=== PATIENT | male | born 1960 | race Hispanic/Latino ===

== ENCOUNTER 2017-05-05 17:18 | Inpatient (IN) | payer OTHER ==
[2017-05-05 17:18] VITALS: BMI 30.4
--- NOTE | 2017-05-05 17:52 | C.PDOC ---
History Of Present Illness <Elizabeth León - Last Filed: 05/05/17 19:01> <Naya Tapia - Last Filed: 05/05/17 19:29> 56 y/o male with Hx of HIV,CHF, DM and AICD presents to ED with complaints of RICO/SOB and general weakness with exertion since this morning. As per patient has been "recently sleeping more than usual" and was trying to assist patient up from couch when patient became Diaphoretic and appeared weak. Status Post STEMI 12/2016 and VL Undetect, CD4>600 which was last checked 7 months ago. Patient is currently asymptomatic and denies CP, FEVER or URI symptoms. Pt is a smoker and unknown if he has Chronic Hypoxia. No other complaints at this time. RICO/SOB SINCE THIS MORNING. +GEN WEAKNESS W EXERTION. CURRENTLY ASYMPT @ REST. NO CP., FEVER. URI SX. PMH sig for CHF, HIV, DM, AICD placement SP STEMI 12/2016. STATES PT HAS BEEN SLEEPING MORE THAN USUAL RECENTLY. WAS TRYING TO ASSIST PT UP FROM COUCH, PT WAS DIAPHORETIC AND APPEARED VERY WEAK. NO CP @ THAT TIME. NOW IMPROVED. +SMOKER. UNK IF CHRONIC HYPOXIA PS VL UNDETECT, CD4>600 LAST CHECKED SEV MONTHS AGO EXAM NAD NONTOXIC LUNGS B/L BASILAR RALES NO RETRACTION SPEAKING FULL SENTENCES ABD NEG EXT NO EDEMA (Elizabeth León) History Per: Patient, Family () History/Exam Limitations: no limitations Onset/Duration Of Symptoms: Hrs Current Symptoms Are (Timing): Still Present <Elizabeth León - Last Filed: 05/05/17 19:01> <Miranda Tapiashannan - Last Filed: 05/05/17 19:29> Chief Complaint (Nursing): Shortness Of Breath Past Medical History Reviewed: Historical Data, Nursing Documentation, Vital Signs - Medical History PMH: HIV, HTN Family History: States: Unknown Family Hx - Social History Hx Alcohol Use: No Hx Substance Use: No <Elizabeth León - Last Filed: 05/05/17 19:01> Review Of Systems Except As Marked, All Systems Reviewed And Found Negative. Constitutional: Negative for: Fever, Chills Cardiovascular: Negative for: Chest Pain Respiratory: Positive for: SOB with Excertion Gastrointestinal: Negative for: Nausea, Vomiting, Diarrhea Genitourinary: Negative for: Dysuria Neurological: Positive for: Weakness. Negative for: Headache <Elizabeth León Last Filed: 05/05/17 19:01> Physical Exam - Physical Exam Appears: Non-toxic, No Acute Distress Skin: Normal Color, Warm Head: Atraumatic, Normacephalic Oral Mucosa: Moist Neck: Normal ROM Cardiovascular: Rhythm Regular, No Murmur Respiratory: Rales (Bilateral Rales, No retractions), No Wheezing Gastrointestinal/Abdominal: Soft, No Tenderness, No Guarding, No Rebound Extremity: Normal ROM, No Pedal Edema, Capillary Refill (<2 seconds) Neurological/Psych: Oriented x3, Normal Speech, Normal Cognition <Elizabeth León Last Filed: 05/05/17 19:01> ED Course And Treatment - Laboratory Results Result Diagrams: 05/05/17 18:35 05/05/17 18:35 O2 Sat by Pulse Oximetry: 99 (RA) Pulse Ox Interpretation: Normal - Radiology CXR: Interpreted by Nc CXR Interpretation: Yes: No Acute Disease <Elizabeth León Last Filed: 05/05/17 19:01> - Laboratory Results Result Diagrams: 05/05/17 18:35 05/05/17 18:35 <Naya Tapia - Last Filed: 05/05/17 19:29> Progress - Data Reviewed Data Reviewed: Lab, Diagnostic imaging, EKG, Old records <Elizabeth León Last Filed: 05/05/17 19:01> Disposition <Elizabeth León Filed: 05/05/17 19:01> Discussed With : Ashley Dejesus Comment: accepted the pt on his service and took over the care at 7:27 PM Doctor Will See Patient In The: Hospital Counseled Patient/Family Regarding: Studies Performed, Diagnosis - Disposition Disposition Time: 19:00 - POA Present On Arrival: Poor Glycemic Control <Miranda Tapiadi - Last Filed: 05/05/17 19:29> - Disposition Disposition: HOSPITALIZED Condition: CRITICAL - Clinical Impression Clinical Impression: Dyspnea, CHF (congestive heart failure), Renal failure, acute - PA / SIZING END BANDER / Resident Statement / has reviewed & agrees with the documentation as recorded. / has examined the patient and agrees with the treatment plan. - Scribe Statement The provider has reviewed the documentation as recorded by the Scribe <Elizabeth León - Last Filed: 05/05/17 19:01> <Naya Tapia - Last Filed: 05/05/17 19:29> - Scribe Statement Rob Parr All medical record entries made by the Scribe were at my direction and personally dictated by me. I have reviewed the chart and agree that the record accurately reflects my personal performance of the history, physical exam, medical decision making, and the department course for this patient. I have also personally directed, reviewed, and agree with the discharge instructions and disposition. (Elizabeth León) Physician Patient Turnover Patient Signed Over To: Naya Tapia Handoff Comments: FU LABS, DISPO <Elizabeth León - Last Filed: 05/05/17 19:01> Decision To Admit <MauElizabeth - Last Filed: 05/05/17 19:01> - Pt Status Changed To: Hospital Disposition Of: Inpatient - Admit Certification Admit to Inpatient:: After my assessment, the patient will require hospitalization for at least two midnights. This is because of the severity of symptoms shown, intensity of services needed, and/or the medical risk in this patient being treated as an outpatient. - InPatient: Physician Admission Certification: I certify that this patient requires 2 or more midnights of care for the following reason:: After my assessment, the patient will require hospitalization for at least two midnights. This is because of the severity of symptoms shown, intensity of services needed, and/or the medical risk in this patient being treated as an outpatient. - . Bed Request Type: Telemetry Admitting Physician: Ashley Dejesus <Naya Tapia - Last Filed: 05/05/17 19:29> - . Patient Diagnosis: Dyspnea, CHF (congestive heart failure), Renal failure, acute
[2017-05-05] MEDS ORDERED: Sodium Chloride 0.9% 1,000 ML IV SCH (18:30)
[2017-05-05 18:32] LABS: ABG ALLEN TEST POS; DRAW SITE RBA
[2017-05-05 18:41] LABS: BASO % 0.3 % (0.0-2.0); EOS % 0.6 % (0.0-4.0); HEMATOCRIT 34.7 % (35.0-51.0); LYMPH # 0.9 K/uL (1.0-4.3); LYMPH % 11.9 % (20.0-40.0); MEAN CELL VOLUME 101.4 fL (80.0-94.0); MEAN CORPUSCULAR HEMOGLOBIN 33.8 pg (27.0-31.0); MEAN CORPUSCULAR HGB CONC 33.4 g/dL (33.0-37.0); MONO # 0.4 K/uL (0.0-0.8); MONO % 5.6 % (0.0-10.0); RED CELL DISTRIBUTION WIDTH 14.2 % (11.5-14.5); WHITE BLOOD COUNT 7.9 K/uL (4.8-10.8)
[2017-05-05 18:49] LABS: INR 0.9
[2017-05-05 18:52] LABS: POTASSIUM 4.7 mmol/L (3.6-5.2)
[2017-05-05 18:54] LABS: ALB/GLOB RATIO 1.1 (1.0-2.1); TOTAL PROTEIN 7.9 g/dL (6.3-8.3)
[2017-05-05 18:55] LABS: CALCIUM 8.5 mg/dl (8.6-10.4)
[2017-05-05 19:07] LABS: TROPONIN I 0.041 ng/mL (0.00-0.120)
[2017-05-05] MEDS ORDERED: Sodium Chloride 0.9% 1,000 ML IV STA (19:21)
[2017-05-05] MEDS ORDERED: Sodium Chloride 0.45% 1,000 ML IV ONE (19:58)
[2017-05-05] MEDS: Sodium Chloride 0.45% 1,000 ML IV SCH (20:00)
[2017-05-05] MEDS ORDERED: Dextrose 50% SYRINGE Inj (50 ml) IV STA (20:02)
[2017-05-05] MEDS ORDERED: Dextrose 50% SYRINGE Inj (50 ml) ONE (20:04)
[2017-05-05] MEDS: Dextrose 5%/0.45% NS 1,000 ML IV SCH (20:31)
[2017-05-05] MEDS: (Novolog) Insulin Aspart, Recombinant 100 u/ml 10 ml vial SC SCH (21:29)
[2017-05-05] MEDS ORDERED: INSULIN GLARGINE HUM REC ANLOG 10 UNIT SQ SCH (22:00)
--- NOTE | 2017-05-05 23:16 | CP.PCM.CON ---
History of Present Illness - History of Present Illness History of Present Illness: Surgery: Dr. Gallegos CC: SKYLAR HPI: 56M w. pmh of CHF, HTN, and HIV presents with new onset weakness/fatigue, SOB/dyspnea on exertion and diaphoresis beginning this morning. However over the past few days pt states that he has been having urinary issues. Decreased frequency and volume of urine. No change in color or odor. He denies F/C no MILLS. He did have CP this AM, no palpitations, no N/V/D. Lab work showed SKYLAR for which surgery has been consulted. PMH: CHF, HTN, HIV PSH: AICD Meds: MAR reviewed NKDA Social: + Tobacco, no ETOH/Drugs Fhx: non-contributory Review of Systems - Review of Systems All systems: reviewed and no additional remarkable complaints except (HPI) Past Patient History - Infectious Disease Hx of Infectious Diseases: None - Past Medical History & Family History Past Medical History?: Yes - Past Social History Smoking Status: Heavy Smoker > 10 Cigarettes Daily - CARDIAC Hx Hypertension: Yes - ENDOCRINE/METABOLIC Hx Diabetes Mellitus Type 2: Yes - HEMATOLOGICAL/ONCOLOGICAL Hx Human Immunodeficiency Virus (HIV): Yes - MUSCULOSKELETAL/RHEUMATOLOGICAL Hx Falls: Yes (multiple stage healing laceration) - PSYCHIATRIC Hx Substance Use: No - SURGICAL HISTORY Hx Surgeries: Yes Other/Comment: AICD placement. - ANESTHESIA Hx Anesthesia: Yes Hx Anesthesia Reactions: No Hx Malignant Hyperthermia: No Has any member of the family had a problem w/ anesthesia?: No Meds Allergies/Adverse Reactions: Allergies Allergy/AdvReac Type Severity Reaction Status Date / Time No Known Allergies Allergy Verified 05/05/17 17:26 - Medications Medications: Current Medications Docusate Sodium (Colace) 100 mg PO DAILY [facility] Home Med (Insulin Glargine,Hum.Rec.Anlog [Lantus Solostar]) 10 unit SQ [facility] Last Admin: 05/05/17 22:33 Dose: Not Given Sodium Chloride (Sodium Chloride 0.9%) 1,000 mls @ 100 mls/hr IV .Q10H STA Stop: 05/06/17 04:29 Last Admin: 05/05/17 19:23 Dose: 100 mls/hr Sodium Chloride (Sodium Chloride 0.45%) 1,000 mls @ 80 mls/hr IV .[id number] [facility] Last Admin: 05/05/17 20:00 Dose: 80 mls/hr Dextrose/Sodium Chloride (Dextrose 5%/0.45% Ns 1000 Ml) 1,000 mls @ 80 mls/hr IV .[id number] [facility] Last Admin: 05/05/17 20:31 Dose: 80 mls/hr Insulin Aspart (Novolog) 0 unit SC ACHS [facility] PRN Reason: Protocol Last Admin: 05/05/17 21:29 Dose: Not Given Physical Exam - Constitutional Appears: Non-toxic, No Acute Distress - Head Exam Head Exam: ATRAUMATIC, NORMOCEPHALIC - Eye Exam Eye Exam: EOMI - ENT Exam ENT Exam: Mucous Membranes Moist - Neck Exam Neck exam: Positive for: Full Rom - Respiratory Exam Respiratory Exam: NORMAL BREATHING PATTERN. absent: Accessory Muscle Use, Respiratory Distress - GI/Abdominal Exam GI & Abdominal Exam: Soft. absent: Tenderness - Neurological Exam Neurological exam: Alert, Oriented x3 Results - Vital Signs Recent Vital Signs: Last Vital Signs Temp 97.4 F L 05/05/17 21:30 Pulse 78 05/05/17 21:30 Resp 18 05/05/17 21:30 BP 110/75 05/05/17 21:30 Pulse Ox 97 05/05/17 21:30 - Labs Result Diagrams: 05/05/17 18:35 05/05/17 18:35 Labs: Laboratory Results - last 24 hr 05/05/17 05/05/17 05/05/17 20:01 20:34 22:26 POC Glucose (mg/dL) 39 L 179 H 136 H Assessment & Plan - Assessment and Plan (Free Text) Assessment: 56M w. SKYLAR -for sean catheter placement tomorrow -Consent in chart -NPO -c/w current medical management -d/w attending Oziel PGY2
[2017-05-06] MEDS: Dextrose 5%/0.45% NS 1,000 ML IV SCH ×3 (07:51→22:10)
[2017-05-06] MEDS: (Novolog) Insulin Aspart, Recombinant 100 u/ml 10 ml vial SC SCH ×4 (08:13→22:46)
[2017-05-06] MEDS: Sodium Chloride 0.45% 1,000 ML IV SCH ×2 (08:15→22:46)
--- NOTE | 2017-05-06 09:33 | CP.PCM.PN ---
Subjective - Date & Time of Evaluation Date of Evaluation: 05/06/17 Time of Evaluation: 09:30 - Subjective Subjective: Medicine Progress Note- Dr Dejesus's service Patient seen and examined. Patient is NPO for sean catheter placement today scheduled for 1100. Patient states that he is still having difficulty urinating due to decreased urine production. Denies fever, chest pain, shortness of breath, and abdominal pain. Patient's questions about procedure were answered. Objective - Vital Signs/Intake and Output Vital Signs (last 24 hours): Temp Pulse Resp BP Pulse Ox 97.4 F L 66 20 114/76 100 05/05/17 23:05 05/06/17 00:00 05/05/17 23:05 05/05/17 23:05 05/05/17 23:05 - Medications Medications: Current Medications Docusate Sodium (Colace) 100 mg PO DAILY [facility] Heparin Sodium (Porcine) (Heparin) 5,000 units SC Q12 [facility] Sodium Chloride (Sodium Chloride 0.45%) 1,000 mls @ 80 mls/hr IV .[id number] [facility] Last Admin: 05/05/17 20:00 Dose: 80 mls/hr Dextrose/Sodium Chloride (Dextrose 5%/0.45% Ns 1000 Ml) 1,000 mls @ 80 mls/hr IV .[id number] [facility] Last Admin: 05/06/17 07:51 Dose: 80 mls/hr Insulin Aspart (Novolog) 0 unit SC [facility] PRN Reason: Protocol Last Admin: 05/06/17 08:13 Dose: Not Given Insulin Glargine (Lantus) 10 unit SC [facility] - Labs Labs: PT 10.5 SECONDS (9.7-12.2) 05/05/17 18:35 INR 0.9 05/05/17 18:35 APTT 30 SECONDS (21-34) 05/05/17 18:35 - Constitutional Appears: Non-toxic, No Acute Distress - Head Exam Head Exam: ATRAUMATIC, NORMOCEPHALIC - Eye Exam Eye Exam: EOMI, Normal appearance - ENT Exam ENT Exam: Mucous Membranes Moist - Respiratory Exam Respiratory Exam: Clear to Ausculation Bilateral, NORMAL BREATHING PATTERN. absent: Rhonchi, Wheezes, Respiratory Distress - Cardiovascular Exam Cardiovascular Exam: REGULAR RHYTHM, +S1, +S2 - GI/Abdominal Exam GI & Abdominal Exam: Soft, Normal Bowel Sounds. absent: Firm, Guarding, Rigid, Tenderness - Extremities Exam Extremities Exam: Full ROM, Normal Inspection. absent: Pedal Edema - Neurological Exam Neurological Exam: Alert, Awake, CN II-XII Intact, Normal Gait, Oriented x3 - Psychiatric Exam Psychiatric exam: Normal Affect, Normal Mood - Skin Skin Exam: Dry, Intact, Normal Color, Warm Assessment and Plan - Assessment and Plan (Free Text) Assessment: (1) ESRD GFR 6 NPO for sean catheter placement today with Dr Gallegos Surgery consulted Dr Gallegos [employer] Pusher Dr Siddiqui consulted (2) CHF with AICD BNP 2220 f/u CXR report (3) HTN well controlled without medications (4) HIV Currently not on any medications ID Dr Maldonado consulted- help appreciated (5) DM ISS Lantus 10u SC HS Accuchecks (6) Prophylactic measures Heparin on hold for surgery Pepcid SCDs Discussed with Dr Dejesus
--- NOTE | 2017-05-06 10:18 | RAD ---
PROCEDURE: CHEST RADIOGRAPH, 1 VIEW HISTORY: Shortness of breath COMPARISON: 01/01/2017 FINDINGS: LUNGS: The lungs are clear. PLEURA: No pneumothorax or pleural fluid seen. CARDIOVASCULAR: There is stable mild cardiomegaly. There is stable position of a right-sided unipolar transvenous permanent pacing device. OSSEOUS STRUCTURES: No significant abnormalities. VISUALIZED UPPER ABDOMEN: Normal. OTHER FINDINGS: None. IMPRESSION: No acute findings.
[2017-05-06] MEDS ORDERED: ceFAZolin 1 gm FROZEN Premix 1 GM/50 ML ML IVPB ONE (11:29)
[2017-05-06] MEDS ORDERED: HEPARIN-NS 5,000 UNITS/500 ML 5,000 UNIT/500 ML BAG IV ONE (11:29)
[2017-05-06] MEDS ORDERED: Iohexol 240 (50 ml) ONE (11:31)
[2017-05-06] MEDS ORDERED: Lidocaine 2% Inj (20ml) ONE (11:48)
[2017-05-06] MEDS ORDERED: Sodium Chloride 0.9% 500 ML IV ONE (12:00)
[2017-05-06] MEDS ORDERED: Etomidate 20 mg/10ml Inj IV ONE (12:00)
[2017-05-06] MEDS ORDERED: Midazolam 2 MG/2 ML VIAL ONE (12:01)
--- NOTE | 2017-05-06 12:48 | PCM.SURG1 ---
Surgeon's Initial Post Op Note - Surgeon's Notes Surgeon: neva Canopy Inspector: 0 Type of Anesthesia: IV Sedation Anesthesia Administered By: rosa Pre-Operative Diagnosis: renal failure Operative Findings: cath to [facility] [place] Post-Operative Diagnosis: same Operation Performed: permacath with us guidance Specimen/Specimens Removed: 0 Estimated Blood Loss: EBL {In ML}: 25 Blood Products Given: N/A Drains Used: No Drains Post-Op Condition: Good Date of Surgery/Procedure: 05/06/17 Time of Surgery/Procedure: 12:47
--- NOTE | 2017-05-06 13:36 | OP ---
PROCEDURE DATE: 05/06/2017 PREOPERATIVE DIAGNOSIS: Renal failure. POSTOPERATIVE DIAGNOSIS: Renal failure. PROCEDURE CARRIED OUT: PermCath, right jugular vein, with C-arm fluoroscopy and ultrasound-guided pu ncture. SURGEON: Bernabe Gallegos MD. LOGISTICAL ENGINEER: None. ANESTHESIOLOGIST: Ms. Elizabeth Breaux CRNA. A middle-aged man, HIV positive, a variety of other medical problems who I was asked to see for evalu ation and placement of a PermCath. OPERATIVE FINDINGS: The catheter was inserted uneventfully via the right jugular vein. This is the same side he has a pacemaker defibrillator on. ____ via the subclavian. We went in via the jugular vein. PROCEDURE: The patient was given local anesthesia. Using ultrasound guidance and micropuncture tech nique, the right jugular vein was punctured. Under fluoroscopic control, the guidewire was advanced centrally. A small sheath dilator was passed over this and subsequently exchanged for a larger wire and a stiffer sheath and the catheter was eventually placed with its tip in the superior vena cava/ri ght atrial junction. It was flushed with heparinized saline with excellent pull in both directions a nd the procedure terminated, secured to the skin with silk sutures. OPERATION CARRIED OUT: PermCath, right jugular vein, with C-arm fluoroscopy and ultrasound-guided pu ncture. Ultrasound imaging of the neck showed vein was 16 mm in diameter with normal compressibility and no e vidence of intraluminal thrombosis. Bernabe Gallegos Jr., MD cc: 56 TT: 05/06/2017 13:35:46 tn
--- NOTE | 2017-05-06 13:54 | RAD ---
HISTORY: PermCath insertion. COMPARISON: Comparison made with prior study 05/05/2027 FINDINGS: LUNGS: Interval placement right IJ PermCath with tip in the SVC. . Suspect minor bibasilar atelectasis left greater than PLEURA: No evidence of pneumothorax. CARDIOVASCULAR: Heart appears mildly enlarged. No change single lead pacemaker/ defibrillator. OSSEOUS STRUCTURES: No significant abnormalities. VISUALIZED UPPER ABDOMEN: Normal. OTHER FINDINGS: None. IMPRESSION: Status post insertion right IJ PermCath as described. No evidence of pneumothorax. Suspect minor bibasilar atelectasis. No other changes.
--- NOTE | 2017-05-06 15:53 | CP.PCM.CON ---
Past Patient History - Infectious Disease Hx of Infectious Diseases: None - Past Medical History & Family History Past Medical History?: Yes - Past Social History Smoking Status: Heavy Smoker > 10 Cigarettes Daily - CARDIAC Hx Hypertension: Yes - ENDOCRINE/METABOLIC Hx Diabetes Mellitus Type 2: Yes - HEMATOLOGICAL/ONCOLOGICAL Hx Human Immunodeficiency Virus (HIV): Yes - MUSCULOSKELETAL/RHEUMATOLOGICAL Hx Falls: Yes (multiple stage healing laceration) - PSYCHIATRIC Hx Substance Use: No - SURGICAL HISTORY Hx Surgeries: Yes Other/Comment: AICD placement. - ANESTHESIA Hx Anesthesia: Yes Hx Anesthesia Reactions: No Hx Malignant Hyperthermia: No Has any member of the family had a problem w/ anesthesia?: No Meds Allergies/Adverse Reactions: Allergies Allergy/AdvReac Type Severity Reaction Status Date / Time No Known Allergies Allergy Verified 05/05/17 17:26 - Medications Medications: Current Medications Docusate Sodium (Colace) 100 mg PO DAILY [facility] Last Admin: 05/06/17 11:00 Dose: Not Given Famotidine (Pepcid) 20 mg PO BID [facility] Last Admin: 05/06/17 11:00 Dose: Not Given Heparin Sodium (Porcine) (Heparin) 5,000 units SC Q12 [facility] Sodium Chloride (Sodium Chloride 0.45%) 1,000 mls @ 80 mls/hr IV .[id number] [facility] Last Admin: 05/05/17 20:00 Dose: 80 mls/hr Dextrose/Sodium Chloride (Dextrose 5%/0.45% Ns 1000 Ml) 1,000 mls @ 80 mls/hr IV .[id number] [facility] Last Admin: 05/06/17 09:00 Dose: Not Given Insulin Aspart (Novolog) [address] [facility] PRN Reason: Protocol Last Admin: 05/06/17 11:30 Dose: Not Given Insulin Glargine (Lantus) 10 unit SC [facility] Results - Vital Signs Recent Vital Signs: Last Vital Signs Temp 97.1 F L 05/06/17 14:00 Pulse 62 05/06/17 14:00 Resp 8 L 05/06/17 14:00 BP 100/65 05/06/17 14:00 Pulse Ox 93 L 05/06/17 14:00 - Labs Result Diagrams: 05/05/17 18:35 05/05/17 18:35 Labs: Laboratory Results - last 24 hr 05/05/17 05/05/17 05/05/17 20:01 20:34 22:26 POC Glucose (mg/dL) 39 L 179 H 136 H 05/06/17 05/06/17 06:39 11:16 POC Glucose (mg/dL) 75 89
--- NOTE | 2017-05-06 15:54 | CP.PCM.CON ---
History of Present Illness - History of Present Illness History of Present Illness: 56M w. pmh of CHF, HTN, and HIV presents with new onset weakness/fatigue, SOB/ dyspnea on exertion and diaphoresis beginning this morning. However over the past few days pt states that he has been having urinary issues. Decreased frequency and volume of urine. No change in color or odor. He denies F/C no MILLS. He did have CP this AM, no palpitations, no N/V/D. Lab work showed SKYLAR for which surgery has been consulted. PMH: CHF, HTN, HIV PSH: AICD Meds: MAR reviewed NKDA Social: + Tobacco, no ETOH/Drugs Fhx: non-contributory Review of Systems - Constitutional Constitutional: As Per HPI, Anorexia, Malaise - EENT Eyes: absent: As Per HPI, Blind Spots, Blurred Vision, Change in Vision, Decreased Night Vision, Diplopia, Discharge, Dry Eye, Exophthalmos, Floaters, Irritation, Itchy Eyes, Loss of Peripheral Vision, Pain, Photophobia, Requires Corrective Lenses, Sees Flashes, Spots in Vision, Tunnel Vision, Other Visual Disturbances, Loss of Vision, Other Ears: absent: As Per HPI, Decreased Hearing, Ear Discharge, Ear Pain, Tinnitus, Abnormal Hearing, Disequilibrium, Dizziness, Other Nose/Mouth/Throat: absent: As Per HPI, Epistaxis, Nasal Congestion, Nasal Discharge, Nasal Obstruction, Nasal Trauma, Nose Pain, Post Nasal Drip, Sinus Pain, Sinus Pressure, Bleeding Gums, Change in Voice, Dental Pain, Dry Mouth, Dysphagia, Halitosis, Hoarsness, Lip Swelling, Mouth Lesions, Mouth Pain, Odynophagia, Sore Throat, Throat Swelling, Tongue Swelling, Facial Pain, Neck Pain, Neck Mass, Other - Cardiovascular Cardiovascular: absent: As Per HPI, Acrocyanosis, Chest Pain, Chest Pain at Rest , Chest Pain with Activity, Claudication, Diaphoresis, Dyspnea, Dyspnea on Exertion, Edema, Irregular Heart Rhythm, Pain Radiating to Arm/Neck/Jaw, Leg Edema, Leg Ulcers, Lightheadedness, Orthopnea, Palpitations, Paroxysmal Nocturnal Dyspnea, Pedal Edema, Radiating Pain, Rapid Heart Rate, Slow Heart Rate, Syncope, Other - Respiratory Respiratory: absent: As Per HPI, Cough, Dyspnea, Hemoptysis, Dyspnea on Exertion , Wheezing, Snoring, Stridor, Pain on Inspiration, Chest Congestion, Excessive Mucous Production, Change in Mucous Color, Pain with Coughing, Other - Gastrointestinal Gastrointestinal: absent: As Per HPI, Abdominal Pain, Belching, Bloating, Change in Bowel Habits, Change in Stool Character, Coffee Ground Emesis, Constipation, Cramping, Diarrhea, Dyspepsia, Dysphagia, Early Satiety, Excessive Flatus, Fecal Incontinence, Heartburn, Hematemesis, Hematochezia, Loose Stools, Melena, Nausea, Odynophagia, Temesmus, Vomiting, Other - Genitourinary Genitourinary: absent: As Per HPI, Change in Urinary Stream, Difficulty Urinating, Dysuria, Flank Pain, Hematuria, Pyuria, Nocturia, Urinary Incontinence, Urinary Frequency, Urinary Hesitance, Urinary Urgency, Voiding Freq/Small Amts, Freq UTI, Hx Renal/Bladder Calculi, Hx /Renal Surgery, Bladder Distension, Other - Musculoskeletal Musculoskeletal: absent: As Per HPI, Abnormal Gait, Arthralgias, Atrophy, Back Pain, Deformity, Joint Swelling, Limited Range of Motion, Loss of Height, Muscle Cramps, Muscle Weakness, Myalgias, Neck Pain, Numbness, Radiating Pain into Limb, Stiffness, Tingling, Other - Integumentary Integumentary: absent: As Per HPI, Acne, Alopecia, Bleeding Lesions, Change in Hair, Change in Nails, Change in Pigmentation, Changing Lesions, Dry Skin, Erythema, Furuncle, Hirsutism, Lesions, New Lesions, Non-Healing Lesions, Photosensitivity, Pruritus, Rash, Skin Pain, Skin Ulcer, Sores, Striae, Swelling , Unusual Bruising, Wounds, Jaundice, Other - Neurological Neurological: absent: As Per HPI, Abnormal Gait, Abnormal Hearing, Abnormal Movements, Abnormal Speech, Behavioral Changes, Burning Sensations, Confusion, Convulsions, Disequilibrium, Dizziness, Numbness, Focal Weakness, Frequent Falls , Headaches, Lack of Coordination, Loss of Vision, Memory Loss, Paresthesias, Radicular Pain, Restless Legs, Sensory Deficit, Syncope, Tingling, Tremor, Vertigo, Weakness, Other Visual Disturbances, Other - Psychiatric Psychiatric: absent: As Per HPI, Abnormal Sleep Pattern, Anhedonia, Anxiety, Auditory Hallucinations, Behavioral Changes, Change in Appetite, Change in Libido, Confusion, Depression, Difficulty Concentrating, Hallucinations, Homicidal Ideation, Hopelessness, Irritability, Memory Loss, Mood Swings, Panic Attacks, Paranoia, Suicidal Ideation, Visual Hallucinations, Tactile Hallucinations, Other - Endocrine Endocrine: absent: As Per HPI, Change in Body Appearance, Change in Libido, Cold Intolorance, Deepening of Voice, Excessive Sweating, Fatigue, Flushing, Heat Intolorance, Increase in Ring/Shoe/Hat Size, Palpitations, Polydipsia, Polyphagia, Polyuria, Other - Hematologic/Lymphatic Hematologic: absent: As Per HPI, Easy Bleeding, Easy Bruising, Lymphadenopathy, Other Past Patient History - Infectious Disease Hx of Infectious Diseases: None - Past Medical History & Family History Past Medical History?: Yes - Past Social History Smoking Status: Heavy Smoker > 10 Cigarettes Daily - CARDIAC Hx Hypertension: Yes - ENDOCRINE/METABOLIC Hx Diabetes Mellitus Type 2: Yes - HEMATOLOGICAL/ONCOLOGICAL Hx Human Immunodeficiency Virus (HIV): Yes - MUSCULOSKELETAL/RHEUMATOLOGICAL Hx Falls: Yes (multiple stage healing laceration) - PSYCHIATRIC Hx Substance Use: No - SURGICAL HISTORY Hx Surgeries: Yes Other/Comment: AICD placement. - ANESTHESIA Hx Anesthesia: Yes Hx Anesthesia Reactions: No Hx Malignant Hyperthermia: No Has any member of the family had a problem w/ anesthesia?: No Meds Allergies/Adverse Reactions: Allergies Allergy/AdvReac Type Severity Reaction Status Date / Time No Known Allergies Allergy Verified 05/05/17 17:26 - Medications Medications: Current Medications Docusate Sodium (Colace) 100 mg PO DAILY [facility] Last Admin: 05/06/17 11:00 Dose: Not Given Famotidine (Pepcid) 20 mg PO BID [facility] Last Admin: 05/06/17 11:00 Dose: Not Given Heparin Sodium (Porcine) (Heparin) 5,000 units SC Q12 [facility] Sodium Chloride (Sodium Chloride 0.45%) 1,000 mls @ 80 mls/hr IV .[id number] [facility] Last Admin: 05/05/17 20:00 Dose: 80 mls/hr Dextrose/Sodium Chloride (Dextrose 5%/0.45% Ns 1000 Ml) 1,000 mls @ 80 mls/hr IV .[id number] [facility] Last Admin: 05/06/17 09:00 Dose: Not Given Insulin Aspart (Novolog) 0 unit SC ACHS [facility] PRN Reason: Protocol Last Admin: 05/06/17 11:30 Dose: Not Given Insulin Glargine (Lantus) 10 unit SC HS [facility] Physical Exam - Constitutional Appears: Non-toxic, Chronically Ill - Head Exam Head Exam: NORMOCEPHALIC - Eye Exam Eye Exam: PERRL. absent: Scleral icterus - ENT Exam ENT Exam: Mucous Membranes Dry, Normal External Ear Exam - Neck Exam Neck exam: Negative for: Lymphadenopathy - Respiratory Exam Respiratory Exam: Decreased Breath Sounds, Clear to Auscultation Bilateral - Cardiovascular Exam Cardiovascular Exam: REGULAR RHYTHM, +S1, +S2 - GI/Abdominal Exam GI & Abdominal Exam: Diminished Bowel Sounds, Soft. absent: Tenderness - Rectal Exam Rectal Exam: Deferred - Exam Exam: NORMAL INSPECTION - Extremities Exam Extremities exam: Negative for: calf tenderness, pedal edema - Back Exam Back exam: absent: CVA tenderness (L), CVA tenderness (R), paraspinal tenderness - Neurological Exam Neurological exam: Alert, CN II-XII Intact, Oriented x3, Reflexes Normal - Psychiatric Exam Psychiatric exam: Depressed - Skin Skin Exam: Dry, Intact Results - Vital Signs Recent Vital Signs: Last Vital Signs Temp 97.1 F L 05/06/17 14:00 Pulse 62 05/06/17 14:00 Resp 8 L 05/06/17 14:00 BP 100/65 05/06/17 14:00 Pulse Ox 93 L 05/06/17 14:00 - Labs Result Diagrams: 05/05/17 18:35 05/05/17 18:35 Labs: Laboratory Results - last 24 hr 05/05/17 05/05/17 05/05/17 20:01 20:34 22:26 POC Glucose (mg/dL) 39 L 179 H 136 H 05/06/17 05/06/17 06:39 11:16 POC Glucose (mg/dL) 75 89 Assessment & Plan - Assessment and Plan (Free Text) Plan: will review chart cont rx as discussed with PMD
--- NOTE | 2017-05-06 16:09 | CP.PCM.CON ---
History of Present Illness - History of Present Illness History of Present Illness: History of Present Illness: 56M w. pmh of CHF, HTN, and HIV presents with new onset weakness/fatigue, SOB/ dyspnea on exertion and diaphoresis beginning this morning. However over the past few days pt states that he has been having urinary issues. Decreased frequency and volume of urine. No change in color or odor. He denies F/C no MILLS. He did have CP this AM, no palpitations, no N/V/D. Lab work showed SKYLAR for which surgery has been consulted. PMH: CHF, HTN, HIV, diverticular disease, DM 2 PSH: AICD, 3 cardiac stents, partial colectomy, permcath Meds: MAR reviewed NKDA Social: + Tobacco, no ETOH/Drugs, former + illicit drug use Fhx: non-contributory Consult dictated Will arrange for dialysis for uremic sxs Past Patient History - Infectious Disease Hx of Infectious Diseases: None - Past Medical History & Family History Past Medical History?: Yes - Past Social History Smoking Status: Heavy Smoker > 10 Cigarettes Daily - CARDIAC Hx Hypertension: Yes - ENDOCRINE/METABOLIC Hx Diabetes Mellitus Type 2: Yes - HEMATOLOGICAL/ONCOLOGICAL Hx Human Immunodeficiency Virus (HIV): Yes - MUSCULOSKELETAL/RHEUMATOLOGICAL Hx Falls: Yes (multiple stage healing laceration) - PSYCHIATRIC Hx Substance Use: No - SURGICAL HISTORY Hx Surgeries: Yes Other/Comment: AICD placement. - ANESTHESIA Hx Anesthesia: Yes Hx Anesthesia Reactions: No Hx Malignant Hyperthermia: No Has any member of the family had a problem w/ anesthesia?: No Meds Allergies/Adverse Reactions: Allergies Allergy/AdvReac Type Severity Reaction Status Date / Time No Known Allergies Allergy Verified 05/05/17 17:26 - Medications Medications: Current Medications Docusate Sodium (Colace) 100 mg PO DAILY [facility] Last Admin: 05/06/17 11:00 Dose: Not Given Famotidine (Pepcid) 20 mg PO BID [facility] Last Admin: 05/06/17 11:00 Dose: Not Given Heparin Sodium (Porcine) (Heparin) 5,000 units SC Q12 [facility] Sodium Chloride (Sodium Chloride 0.45%) 1,000 mls @ 80 mls/hr IV .[id number] [facility] Last Admin: 05/05/17 20:00 Dose: 80 mls/hr Dextrose/Sodium Chloride (Dextrose 5%/0.45% Ns 1000 Ml) 1,000 mls @ 80 mls/hr IV .[id number] [facility] Last Admin: 05/06/17 09:00 Dose: Not Given Insulin Aspart (Novolog) 0 unit SC ACHS [facility] PRN Reason: Protocol Last Admin: 05/06/17 11:30 Dose: Not Given Insulin Glargine (Lantus) 10 unit SC HS [facility] Results - Vital Signs Recent Vital Signs: Last Vital Signs Temp 97.7 F 05/06/17 15:00 Pulse 64 05/06/17 15:00 Resp 20 05/06/17 15:00 BP 99/64 L 05/06/17 15:00 Pulse Ox 97 05/06/17 15:00 - Labs Result Diagrams: 05/05/17 18:35 05/05/17 18:35 Labs: Laboratory Results - last 24 hr 05/05/17 05/05/17 05/05/17 20:01 20:34 22:26 POC Glucose (mg/dL) 39 L 179 H 136 H 05/06/17 05/06/17 06:39 11:16 POC Glucose (mg/dL) 75 89
[2017-05-06] MEDS ORDERED: Dextrose 50% SYRINGE Inj (50 ml) IV STA (16:49)
--- NOTE | 2017-05-06 17:36 | CARD ---
APPROVED REPORT EKG Measurement Heart [id number] <Conclusion> Sinus rhythm with 1st degree AV block Left axis deviation Nonspecific intraventricular block Inferior infarct, age undetermined Abnormal ECG
--- NOTE | 2017-05-06 20:49 | CON ---
DATE: 05/06/2017 The patient is a 56-year-old white man with a past medical history of HIV, hypertension, diabetes sawyer litus type 2, diverticular disease and coronary artery disease. He presents with increasing weakness , became very listless and was eating poorly and he was found to have a creatinine over 9 mg percent. He is a poor historian, but the most significant past medical history is that of acute myocardial i nfarction over a month ago, which required ICD placement and 3 cardiac stents. PAST SURGICAL HISTORY: Therefore, 3 cardiac stents, ICD, a new PermCath placement and a partial angélica ctomy. MEDICATIONS: Now he is on normal saline at mL an hour and he was given Pepcid 20 twice a day. He is on HIV meds. HIV meds are being reviewed by the house staff. FAMILY HISTORY: Noncontributory. SOCIAL HISTORY: Significant for he is an active smoker, a moderate amount; no history of alcohol abu se, a remote history of illicit drug use. REVIEW OF SYSTEMS: Significant for increasing weakness, decreased appetite, poor vision. He has dys pnea on exertion about 2-3 blocks. No cough. No change in bowel habits. Other review of systems ar e all negative. PHYSICAL EXAMINATION: GENERAL: He is a well-developed man in no acute distress. VITAL SIGNS: Blood pressure was 99/64, temperature 97.7, pulse , pulse ox 97% on room air. HEENT: Anicteric. Mouth was clear. NECK: No JVD. LUNGS: Lung myrick were clear. HEART: Regular rhythm, no murmur. ABDOMEN: Soft, benign. No mass or organomegaly. EXTREMITIES: No peripheral edema. NEUROLOGIC: No focal deficits. LABORATORY DATA: Blood work showed hemoglobin 11.6, potassium 4.7, creatinine 9.4. ProBNP is 2220. IMPRESSION: The patient has end-stage renal disease, likely due to human immunodeficiency virus neph ropathy, possibly due to diabetic nephropathy; history of hypertension, coronary artery disease and d iverticular disease. He had a recent myocardial infarction, which has caused cardiomyopathy necessit ating implantable cardioverter defibrillator placement. PLAN: Will be hemodialysis, a the PermCath has been placed and will schedule dialysis either tonight or tomorrow and will followup. Des iSddiqui MD cc: [id number] TT: 05/06/2017 20:48:53 Confirmation # [id number] Dictation # [id number]
[2017-05-06] MEDS: (Lantus) Insulin Glargine, Recombinant SC SCH (22:00)
[2017-05-07 07:28] LABS: BASO % 0.1 % (0.0-2.0); EOS # 0.1 K/uL (0.0-0.7); EOS % 1.1 % (0.0-4.0); HEMATOCRIT 32.1 % (35.0-51.0); LYMPH # 0.8 K/uL (1.0-4.3); LYMPH % 12.2 % (20.0-40.0); MEAN CELL VOLUME 100.6 fL (80.0-94.0); MEAN CORPUSCULAR HEMOGLOBIN 34.3 pg (27.0-31.0); MEAN CORPUSCULAR HGB CONC 34.1 g/dL (33.0-37.0); MEAN PLATELET VOLUME 9.2 fL (7.2-11.7); MONO # 0.6 K/uL (0.0-0.8); MONO % 8.4 % (0.0-10.0); WHITE BLOOD COUNT 6.9 K/uL (4.8-10.8)
[2017-05-07] MEDS: (Novolog) Insulin Aspart, Recombinant 100 u/ml 10 ml vial SC SCH ×4 (07:32→21:56)
[2017-05-07 07:52] LABS: POTASSIUM 5.8 mmol/L (3.6-5.2)
[2017-05-07 07:54] LABS: BILIRUBIN,TOTAL 0.8 mg/dL (0.2-1.3)
[2017-05-07 07:55] LABS: ALB/GLOB RATIO 0.8 (1.0-2.1); CALCIUM 7.7 mg/dl (8.6-10.4); PHOSPHOROUS 7.1 mg/dL (2.5-4.5); TOTAL PROTEIN 6.8 g/dL (6.3-8.3)
--- NOTE | 2017-05-07 07:58 | CP.PCM.PN ---
Subjective - Date & Time of Evaluation Date of Evaluation: 05/07/17 Time of Evaluation: 07:56 - Subjective Subjective: Vasc Sx: Dr Gallegos Pt S&E. NAEO. POD#1 s/p permacath replacement. Pt with post-op pain. Will order percocet. Ok to use catheter for dialysis. Objective - Vital Signs/Intake and Output Vital Signs (last 24 hours): Temp Pulse Resp BP Pulse Ox 98.0 F 71 20 104/61 95 05/06/17 23:05 05/07/17 00:00 05/06/17 23:05 05/06/17 23:05 05/06/17 23:05 - Medications Medications: Current Medications Darunavir (Prezista) 800 mg PO DAILY [facility] Last Admin: 05/06/17 18:41 Dose: 800 mg Docusate Sodium (Colace) 100 mg PO DAILY [facility] Last Admin: 05/06/17 11:00 Dose: Not Given Famotidine (Pepcid) 20 mg PO BID [facility] Last Admin: 05/06/17 18:22 Dose: 20 mg Heparin Sodium (Porcine) (Heparin) 5,000 units SC Q12 [facility] Sodium Chloride (Sodium Chloride 0.45%) 1,000 mls @ 80 mls/hr IV .[id number] [facility] Last Admin: 05/06/17 22:46 Dose: Not Given Dextrose/Sodium Chloride (Dextrose 5%/0.45% Ns 1000 Ml) 1,000 mls @ 80 mls/hr IV .[id number] [facility] Last Admin: 05/06/17 22:10 Dose: 80 mls/hr Insulin Aspart (Novolog) 0 unit SC ACHS [facility] PRN Reason: Protocol Last Admin: 05/07/17 07:32 Dose: Not Given Insulin Glargine (Lantus) 10 unit SC HS [facility] Last Admin: 05/06/17 22:00 Dose: Not Given Oxycodone/Acetaminophen (Percocet 5/325 Mg Tab) 1 tab PO Q4H PRN PRN Reason: Pain, moderate (4-7) Stop: 05/10/17 07:56 Raltegravir (Isentress) 400 mg PO BID [facility] Last Admin: 05/06/17 18:41 Dose: 400 mg Ritonavir (Norvir) 100 mg PO BIDBS [facility] Last Admin: 05/06/17 18:41 Dose: 100 mg - Labs Labs: 05/07/17 07:20 PT 10.5 SECONDS (9.7-12.2) 05/05/17 18:35 INR 0.9 05/05/17 18:35 APTT 30 SECONDS (21-34) 05/05/17 18:35 - Constitutional Appears: Non-toxic, No Acute Distress - Neck Exam Additional comments: mild TTP at site of catheter insertion - Respiratory Exam Respiratory Exam: absent: Accessory Muscle Use, Respiratory Distress - Cardiovascular Exam Cardiovascular Exam: REGULAR RHYTHM. absent: Tachycardia - GI/Abdominal Exam GI & Abdominal Exam: Soft. absent: Tenderness - Extremities Exam Extremities Exam: Full ROM - Neurological Exam Neurological Exam: Alert, Awake, Oriented x3 - Psychiatric Exam Psychiatric exam: Normal Affect, Normal Mood - Skin Skin Exam: Normal Color, Warm Assessment and Plan - Assessment and Plan (Free Text) Assessment: 56M in SKYLAR, POD#1 s/p permacath placement Plan: ok to use catheter for dialysis further mgmt per primary will d/w Dr Rosy Dunn, PGY2
[2017-05-07] MEDS: Dextrose 5%/0.45% NS 1,000 ML IV SCH ×3 (08:36→22:37)
[2017-05-07] MEDS: Oxycodone/Acetaminophen 5/325 mg Tab PO PRN ×3 (08:41→21:59)
[2017-05-07] MEDS: Sodium Chloride 0.45% 1,000 ML IV SCH (09:15)
--- NOTE | 2017-05-07 09:33 | RAD ---
PROCEDURE: Intraoperative Fluoroscopy. HISTORY: ACUTE RENAL FAILURE FINDINGS: Fluoroscopic assistance was provided for right central venous catheter placement. Please refer to the operative report from
--- NOTE | 2017-05-07 11:09 | CP.PCM.PN ---
Subjective - Date & Time of Evaluation Date of Evaluation: 05/07/17 Time of Evaluation: 11:06 - Subjective Subjective: Notes reviewed Seen in hd unit on dialysis No complaints Permacath placed No overnight events No pain or nausea No sob or cough at rest Appetite remains poor qb 250 Objective - Vital Signs/Intake and Output Vital Signs (last 24 hours): Temp Pulse Resp BP Pulse Ox 97.6 F 66 19 108/76 100 05/07/17 10:00 05/07/17 10:00 05/07/17 10:00 05/07/17 10:30 05/07/17 10:00 - Medications Medications: Current Medications Darunavir (Prezista) 800 mg PO DAILY [facility] Last Admin: 05/06/17 18:41 Dose: 800 mg Docusate Sodium (Colace) 100 mg PO DAILY [facility] Last Admin: 05/06/17 11:00 Dose: Not Given Famotidine (Pepcid) 20 mg PO BID [facility] Last Admin: 05/06/17 18:22 Dose: 20 mg Heparin Sodium (Porcine) (Heparin) 5,000 units SC Q12 [facility] Sodium Chloride (Sodium Chloride 0.45%) 1,000 mls @ 80 mls/hr IV .[id number] [facility] Last Admin: 05/06/17 22:46 Dose: Not Given Dextrose/Sodium Chloride (Dextrose 5%/0.45% Ns 1000 Ml) 1,000 mls @ 80 mls/hr IV .[id number] [facility] Last Admin: 05/07/17 08:36 Dose: 80 mls/hr Insulin Aspart (Novolog) 0 unit SC ACHS [facility] PRN Reason: Protocol Last Admin: 05/07/17 07:32 Dose: Not Given Insulin Glargine (Lantus) 10 unit SC HS [facility] Last Admin: 05/06/17 22:00 Dose: Not Given Oxycodone/Acetaminophen (Percocet 5/325 Mg Tab) 1 tab PO Q4H PRN PRN Reason: Pain, moderate (4-7) Stop: 05/10/17 08:00 Last Admin: 05/07/17 08:41 Dose: 1 tab Raltegravir (Isentress) 400 mg PO BID [facility] Last Admin: 05/06/17 18:41 Dose: 400 mg Ritonavir (Norvir) 100 mg PO BIDBS [facility] Last Admin: 05/07/17 08:33 Dose: 100 mg - Labs Labs: 05/07/17 07:20 05/07/17 07:20 PT 10.5 SECONDS (9.7-12.2) 05/05/17 18:35 INR 0.9 05/05/17 18:35 APTT 30 SECONDS (21-34) 05/05/17 18:35 - Constitutional Appears: Well, Non-toxic - Head Exam Head Exam: ATRAUMATIC, NORMAL INSPECTION - Eye Exam Eye Exam: EOMI, Normal appearance - ENT Exam ENT Exam: Mucous Membranes Moist, Normal Oropharynx - Neck Exam Neck Exam: absent: Lymphadenopathy, Thyromegaly - Respiratory Exam Respiratory Exam: Clear to Ausculation Bilateral. absent: Rales, Rhonchi - Cardiovascular Exam Cardiovascular Exam: REGULAR RHYTHM, +S1, +S2. absent: JVD - GI/Abdominal Exam GI & Abdominal Exam: Soft, Normal Bowel Sounds - Extremities Exam Extremities Exam: Pedal Edema. absent: Joint Swelling - Neurological Exam Neurological Exam: Alert, Awake - Skin Skin Exam: Dry, Normal Color Assessment and Plan (1) Renal failure, acute Status: Acute (2) Anemia Status: Acute (3) Diabetic nephropathy associated with type 2 diabetes mellitus Status: Chronic (4) HIV (human immunodeficiency virus infection) Status: Chronic - Assessment and Plan (Free Text) Assessment: Starting dialysis without difficulty Qb 250, uf goal 1300ml as tolerated Will need sweeper brush maker machine dialysis access placement Bp stable, monitor on hd Outpatient placement in progress Continue current care
[2017-05-07] MEDS: (Lantus) Insulin Glargine, Recombinant SC SCH (21:59)
[2017-05-08] MEDS: Dextrose 5%/0.45% NS 1,000 ML IV SCH ×3 (01:30→15:42)
[2017-05-08] MEDS: (Novolog) Insulin Aspart, Recombinant 100 u/ml 10 ml vial SC SCH ×4 (08:18→22:02)
--- NOTE | 2017-05-08 13:56 | CP.PCM.PN ---
Subjective - Date & Time of Evaluation Date of Evaluation: 05/08/17 Time of Evaluation: 08:00 - Subjective Subjective: HEP C + HD IN PROGRESS OFF [place] Objective - Vital Signs/Intake and Output Vital Signs (last 24 hours): Temp Pulse Resp BP Pulse Ox 97.4 F L 68 20 128/81 98 05/08/17 08:00 05/08/17 08:00 05/08/17 08:00 05/08/17 08:00 05/08/17 08:00 Intake and Output: 05/08/17 05/08/17 06:59 18:59 Intake Total 790 Balance 790 - Medications Medications: Current Medications Darunavir (Prezista) 800 mg PO DAILY [facility] Last Admin: 05/08/17 09:14 Dose: 800 mg Docusate Sodium (Colace) 100 mg PO DAILY [facility] Last Admin: 05/08/17 09:14 Dose: 100 mg Famotidine (Pepcid) 20 mg PO BID [facility] Last Admin: 05/08/17 09:14 Dose: 20 mg Heparin Sodium (Porcine) (Heparin) 5,000 units SC Q12 [facility] Dextrose/Sodium Chloride (Dextrose 5%/0.45% Ns 1000 Ml) 1,000 mls @ 80 mls/hr IV .[id number] [facility] Last Admin: 05/08/17 01:30 Dose: 80 mls/hr Insulin Aspart (Novolog) 0 unit SC ACHS [facility] PRN Reason: Protocol Last Admin: 05/08/17 12:38 Dose: Not Given Insulin Glargine (Lantus) 10 unit SC HS [facility] Last Admin: 05/07/17 21:59 Dose: 10 units Oxycodone/Acetaminophen (Percocet 5/325 Mg Tab) 1 tab PO Q4H PRN PRN Reason: Pain, moderate (4-7) Stop: 05/10/17 08:00 Last Admin: 05/07/17 21:59 Dose: 1 tab Raltegravir (Isentress) 400 mg PO BID [facility] Last Admin: 05/08/17 09:14 Dose: 400 mg Ritonavir (Norvir) 100 mg PO BIDBS [facility] Last Admin: 05/08/17 08:11 Dose: 100 mg - Labs Labs: 05/07/17 07:20 05/07/17 07:20 PT 10.5 SECONDS (9.7-12.2) 05/05/17 18:35 INR 0.9 05/05/17 18:35 APTT 30 SECONDS (21-34) 05/05/17 18:35 - Constitutional Appears: Non-toxic, Chronically Ill - Head Exam Head Exam: NORMOCEPHALIC - Eye Exam Eye Exam: PERRL. absent: Scleral icterus - ENT Exam ENT Exam: Mucous Membranes Dry, Normal External Ear Exam - Neck Exam Neck Exam: absent: Lymphadenopathy - Respiratory Exam Respiratory Exam: Decreased Breath Sounds, Rhonchi - Cardiovascular Exam Cardiovascular Exam: REGULAR RHYTHM, +S1, +S2 - GI/Abdominal Exam GI & Abdominal Exam: Distended, Soft - Rectal Exam Rectal Exam: Deferred - Exam Exam: NORMAL INSPECTION Assessment and Plan (1) Diabetes mellitus Status: Acute (2) Diabetic nephropathy associated with type 2 diabetes mellitus Status: Chronic (3) HIV (human immunodeficiency virus infection) Status: Chronic (4) Hepatitis C antibody positive in blood Status: Acute (5) Hepatitis C antibody positive in blood Status: Acute
[2017-05-08] MEDS: Oxycodone/Acetaminophen 5/325 mg Tab PO PRN ×2 (17:23→21:33)
[2017-05-08] MEDS: (Lantus) Insulin Glargine, Recombinant SC SCH (21:33)
--- NOTE | 2017-05-09 07:34 | HP ---
The patient is a 56-year-old male ____ congestive heart failure, coronary artery disease. The patien t ____ ICD, renal failure. Patient came and advised admission ____. PHYSICAL EXAMINATION: GENERAL: The patient is awake, alert ____. VITAL SIGNS: Temperature is 98, pulse 90. HEENT: Within normal limits. NECK: Supple. CHEST: Symmetrical. HEART: Regular. ABDOMEN: Soft. EXTREMITIES: No edema. History of renal failure, patient bedrest, supportive care. Ashley Stuart MD cc: [phone] TT: 05/06/2017 12:00:52 justin 05/09/2017 06:33:01
[2017-05-09 07:54] LABS: BASO % 0.3 % (0.0-2.0); EOS # 0.1 K/uL (0.0-0.7); EOS % 2.1 % (0.0-4.0); HEMATOCRIT 31.4 % (35.0-51.0); LYMPH # 1.1 K/uL (1.0-4.3); LYMPH % 18.3 % (20.0-40.0); MEAN CELL VOLUME 100.3 fL (80.0-94.0); MEAN CORPUSCULAR HEMOGLOBIN 33.8 pg (27.0-31.0); MEAN CORPUSCULAR HGB CONC 33.7 g/dL (33.0-37.0); MEAN PLATELET VOLUME 8.9 fL (7.2-11.7); MONO # 0.5 K/uL (0.0-0.8); NRBC % 0.1 % (0.0-2.0); RED CELL DISTRIBUTION WIDTH 14.1 % (11.5-14.5)
[2017-05-09] MEDS: (Novolog) Insulin Aspart, Recombinant 100 u/ml 10 ml vial SC SCH ×3 (08:18→21:39)
--- NOTE | 2017-05-09 08:48 | PN ---
DATE: 05/07/2017 Patient showed improvement. The patient gets supportive care, hemodialysis. Ashley Stuart MD cc: [phone] TT: 05/07/2017 18:24:45 Confirmation # [id number] Dictation # [id number] 05/09/2017 07:47:40
[2017-05-09 08:49] LABS: CALCIUM 8.3 mg/dl (8.6-10.4); MAGNESIUM 2.2 mg/dL (1.6-2.3); PHOSPHOROUS 7.7 mg/dL (2.5-4.5); POTASSIUM 4.1 mmol/L (3.6-5.2); TOTAL PROTEIN 7.1 g/dL (6.3-8.3)
--- NOTE | 2017-05-09 09:25 | CP.PCM.PN ---
Subjective - Date & Time of Evaluation Date of Evaluation: 05/09/17 Time of Evaluation: 10:00 - Subjective Subjective: Dr. Dejesus progress note: Patient seen in room with his friend. Patient is very confused as to why he came here or when he came here. The friend is at bedside who said the patient became more confused with difficulty breathing, nausea, vomiting. The patient says his has no diffaculty breathing, no swelling, chest pain, shortness of breath, fever, or chills. Objective - Vital Signs/Intake and Output Vital Signs (last 24 hours): Temp Pulse Resp BP Pulse Ox 97.9 F 70 20 123/71 94 L 05/09/17 07:12 05/08/17 23:23 05/09/17 07:12 05/09/17 07:12 05/09/17 07:12 - Medications Medications: Current Medications Darunavir (Prezista) 800 mg PO DAILY [facility] Last Admin: 05/08/17 09:14 Dose: 800 mg Docusate Sodium (Colace) 100 mg PO DAILY [facility] Last Admin: 05/08/17 09:14 Dose: 100 mg Famotidine (Pepcid) 20 mg PO BID [facility] Last Admin: 05/08/17 17:23 Dose: 20 mg Heparin Sodium (Porcine) (Heparin) 5,000 units SC Q12 [facility] Insulin Aspart (Novolog) 0 unit SC ACHS [facility] PRN Reason: Protocol Last Admin: 05/09/17 08:18 Dose: Not Given Insulin Glargine (Lantus) 10 unit SC HS [facility] Last Admin: 05/08/17 21:33 Dose: 10 units Oxycodone/Acetaminophen (Percocet 5/325 Mg Tab) 1 tab PO Q4H PRN PRN Reason: Pain, moderate (4-7) Stop: 05/10/17 08:00 Last Admin: 05/08/17 21:33 Dose: 1 tab Raltegravir (Isentress) 400 mg PO BID [facility] Last Admin: 05/08/17 17:23 Dose: 400 mg Ritonavir (Norvir) 100 mg PO BIDBS [facility] Last Admin: 05/08/17 17:23 Dose: 100 mg - Labs Labs: 05/09/17 07:43 05/09/17 07:43 PT 10.5 SECONDS (9.7-12.2) 05/05/17 18:35 INR 0.9 05/05/17 18:35 APTT 30 SECONDS (21-34) 05/05/17 18:35 - Constitutional Appears: Non-toxic, No Acute Distress - Head Exam Head Exam: NORMAL INSPECTION - Eye Exam Eye Exam: Normal appearance Pupil Exam: NORMAL ACCOMODATION - Respiratory Exam Respiratory Exam: Clear to Ausculation Bilateral. absent: Rhonchi, Wheezes - Cardiovascular Exam Cardiovascular Exam: REGULAR RHYTHM, RRR, +S1, +S2. absent: Gallop, Rubs - Extremities Exam Extremities Exam: Normal Inspection - Back Exam Back Exam: NORMAL INSPECTION - Neurological Exam Neurological Exam: Alert. absent: Oriented x3 - Psychiatric Exam Psychiatric exam: Normal Affect, Normal Mood - Skin Skin Exam: Pallor, Warm. absent: Normal Color Assessment and Plan - Assessment and Plan (Free Text) Assessment: 1) ESRD 05/09: Patient needs skilled nursing dialysis arrangement for discharge. GFR 6 NPO for sean catheter placement today with Dr Gallegos Surgery consulted Dr Gallegos Cath Lab Radiology Technician Dr Siddiqui consulted (2) CHF with AICD BNP 2220 f/u CXR report (3) HTN well controlled without medications (4) HIV 05/09: triple therapy started. Currently not on any medications ID Dr Maldonado consulted- help appreciated (5) DM ISS Lantus 10u SC HS Accuchecks 6. Hepatitis C positive Will most likely need GI consult. (7) Prophylactic measures Heparin Pepcid SCDs
--- NOTE | 2017-05-09 09:33 | CP.PCM.PN ---
Objective - Vital Signs/Intake and Output Vital Signs (last 24 hours): Temp Pulse Resp BP Pulse Ox 97.9 F 70 20 123/71 94 L 05/09/17 07:12 05/08/17 23:23 05/09/17 07:12 05/09/17 07:12 05/09/17 07:12 - Medications Medications: Current Medications Darunavir (Prezista) 800 mg PO DAILY [facility] Last Admin: 05/08/17 09:14 Dose: 800 mg Docusate Sodium (Colace) 100 mg PO DAILY [facility] Last Admin: 05/08/17 09:14 Dose: 100 mg Famotidine (Pepcid) 20 mg PO BID [facility] Last Admin: 05/08/17 17:23 Dose: 20 mg Heparin Sodium (Porcine) (Heparin) 5,000 units SC Q12 [facility] Insulin Aspart (Novolog) 0 unit SC ACHS [facility] PRN Reason: Protocol Last Admin: 05/09/17 08:18 Dose: Not Given Insulin Glargine (Lantus) 10 unit SC HS [facility] Last Admin: 05/08/17 21:33 Dose: 10 units Oxycodone/Acetaminophen (Percocet 5/325 Mg Tab) 1 tab PO Q4H PRN PRN Reason: Pain, moderate (4-7) Stop: 05/10/17 08:00 Last Admin: 05/08/17 21:33 Dose: 1 tab Raltegravir (Isentress) 400 mg PO BID [facility] Last Admin: 05/08/17 17:23 Dose: 400 mg Ritonavir (Norvir) 100 mg PO BIDBS [facility] Last Admin: 05/08/17 17:23 Dose: 100 mg - Labs Labs: 05/09/17 07:43 05/09/17 07:43 PT 10.5 SECONDS (9.7-12.2) 05/05/17 18:35 INR 0.9 05/05/17 18:35 APTT 30 SECONDS (21-34) 05/05/17 18:35
--- NOTE | 2017-05-09 11:03 | CP.PCM.PN ---
Subjective - Date & Time of Evaluation Date of Evaluation: 05/09/17 Time of Evaluation: 08:00 - Subjective Subjective: rx in progress Objective - Vital Signs/Intake and Output Vital Signs (last 24 hours): Temp Pulse Resp BP Pulse Ox 97.9 F 70 20 123/71 94 L 05/09/17 07:12 05/08/17 23:23 05/09/17 07:12 05/09/17 07:12 05/09/17 07:12 - Medications Medications: Current Medications Calcium Acetate (Phoslo) 667 mg PO AC [facility] Darunavir (Prezista) 800 mg PO DAILY [facility] Last Admin: 05/09/17 10:54 Dose: 800 mg Docusate Sodium (Colace) 100 mg PO DAILY [facility] Last Admin: 05/09/17 10:54 Dose: 100 mg Famotidine (Pepcid) 20 mg PO BID [facility] Last Admin: 05/09/17 10:54 Dose: 20 mg Heparin Sodium (Porcine) (Heparin) 5,000 units SC Q12 [facility] Insulin Aspart (Novolog) 0 unit SC ACHS [facility] PRN Reason: Protocol Last Admin: 05/09/17 08:18 Dose: Not Given Insulin Glargine (Lantus) 10 unit SC HS [facility] Last Admin: 05/08/17 21:33 Dose: 10 units Oxycodone/Acetaminophen (Percocet 5/325 Mg Tab) 1 tab PO Q4H PRN PRN Reason: Pain, moderate (4-7) Stop: 05/10/17 08:00 Last Admin: 05/08/17 21:33 Dose: 1 tab Raltegravir (Isentress) 400 mg PO BID [facility] Last Admin: 05/09/17 10:54 Dose: 400 mg Ritonavir (Norvir) 100 mg PO BIDBS [facility] Last Admin: 05/09/17 10:54 Dose: 100 mg - Labs Labs: 05/09/17 07:43 05/09/17 07:43 PT 10.5 SECONDS (9.7-12.2) 05/05/17 18:35 INR 0.9 05/05/17 18:35 APTT 30 SECONDS (21-34) 05/05/17 18:35 - Constitutional Appears: Non-toxic - Head Exam Head Exam: NORMOCEPHALIC - Eye Exam Eye Exam: Normal appearance - ENT Exam ENT Exam: Mucous Membranes Dry - Respiratory Exam Respiratory Exam: Decreased Breath Sounds, Clear to Ausculation Bilateral - Cardiovascular Exam Cardiovascular Exam: REGULAR RHYTHM, +S1, +S2 - GI/Abdominal Exam GI & Abdominal Exam: Distended, Soft - Rectal Exam Rectal Exam: Deferred - Exam Exam: NORMAL INSPECTION - Extremities Exam Extremities Exam: absent: Pedal Edema - Back Exam Back Exam: absent: CVA tenderness (L), CVA tenderness (R) - Neurological Exam Neurological Exam: Alert, Awake, Oriented x3 - Psychiatric Exam Psychiatric exam: Normal Mood - Skin Skin Exam: Dry Assessment and Plan (1) Diabetes mellitus Status: Acute (2) Diabetic nephropathy associated with type 2 diabetes mellitus Status: Chronic (3) HIV (human immunodeficiency virus infection) Status: Chronic (4) Hepatitis C antibody positive in blood Status: Acute (5) Hepatitis C antibody positive in blood Status: Acute
--- NOTE | 2017-05-09 11:58 | CP.PCM.PN ---
Subjective - Date & Time of Evaluation Date of Evaluation: 05/09/17 Time of Evaluation: 11:56 - Subjective Subjective: Stable dialysis 6/10 Alert; feels sl better Phos elevated- will increase phoslo dose; check PTH No n, v, SOB, CPs, f, chills Spoke about possible home HD Will need av access Objective - Vital Signs/Intake and Output Vital Signs (last 24 hours): Temp Pulse Resp BP Pulse Ox 97.9 F 70 20 123/71 94 L 05/09/17 07:12 05/08/17 23:23 05/09/17 07:12 05/09/17 07:12 05/09/17 07:12 - Medications Medications: Current Medications Calcium Acetate (Phoslo) 667 mg PO TID [facility] Darunavir (Prezista) 800 mg PO DAILY [facility] Last Admin: 05/09/17 10:54 Dose: 800 mg Docusate Sodium (Colace) 100 mg PO DAILY [facility] Last Admin: 05/09/17 10:54 Dose: 100 mg Famotidine (Pepcid) 20 mg PO BID [facility] Last Admin: 05/09/17 10:54 Dose: 20 mg Heparin Sodium (Porcine) (Heparin) 5,000 units SC Q12 [facility] Insulin Aspart (Novolog) 0 unit SC ACHS [facility] PRN Reason: Protocol Last Admin: 05/09/17 08:18 Dose: Not Given Insulin Glargine (Lantus) 10 unit SC HS [facility] Last Admin: 05/08/17 21:33 Dose: 10 units Oxycodone/Acetaminophen (Percocet 5/325 Mg Tab) 1 tab PO Q4H PRN PRN Reason: Pain, moderate (4-7) Stop: 05/10/17 08:00 Last Admin: 05/08/17 21:33 Dose: 1 tab Raltegravir (Isentress) 400 mg PO BID [facility] Last Admin: 05/09/17 10:54 Dose: 400 mg Ritonavir (Norvir) 100 mg PO BIDBS [facility] Last Admin: 05/09/17 10:54 Dose: 100 mg - Labs Labs: 05/09/17 07:43 05/09/17 07:43 PT 10.5 SECONDS (9.7-12.2) 05/05/17 18:35 INR 0.9 05/05/17 18:35 APTT 30 SECONDS (21-34) 05/05/17 18:35 - Constitutional Appears: No Acute Distress, Chronically Ill - Head Exam Head Exam: ATRAUMATIC, NORMAL INSPECTION - Eye Exam Eye Exam: EOMI, Normal appearance - Neck Exam Neck Exam: Normal Inspection, Tenderness - Respiratory Exam Respiratory Exam: Clear to Ausculation Bilateral, NORMAL BREATHING PATTERN - Cardiovascular Exam Cardiovascular Exam: REGULAR RHYTHM, +S1 - GI/Abdominal Exam GI & Abdominal Exam: Soft. absent: Tenderness - Extremities Exam Extremities Exam: Normal Inspection. absent: Tenderness - Neurological Exam Neurological Exam: Alert, CN II-XII Intact - Skin Skin Exam: Dry, Warm Assessment and Plan (1) ESRD (end stage renal disease) Status: Acute (2) Hepatitis C antibody positive in blood Status: Acute (3) HIV (human immunodeficiency virus infection) Status: Chronic - Assessment and Plan (Free Text) Plan: Dialysis MWF Will need AV access Arrange for outpt dialysis
--- NOTE | 2017-05-09 18:34 | CP.PCM.PCO ---
Physician Communication Note - Physician Communication Note Physician Communication Note: OR 05/10 for AVF
[2017-05-09] MEDS: (Lantus) Insulin Glargine, Recombinant SC SCH (21:42)
[2017-05-10] MEDS: (Novolog) Insulin Aspart, Recombinant 100 u/ml 10 ml vial SC SCH ×4 (07:15→22:15)
[2017-05-10 09:11] LABS: BASO % 0.6 % (0.0-2.0); EOS # 0.1 K/uL (0.0-0.7); EOS % 1.6 % (0.0-4.0); HEMATOCRIT 25.4 % (35.0-51.0); LYMPH # 0.8 K/uL (1.0-4.3); LYMPH % 18.5 % (20.0-40.0); MEAN CORPUSCULAR HEMOGLOBIN 34.2 pg (27.0-31.0); MEAN CORPUSCULAR HGB CONC 34.5 g/dL (33.0-37.0); MEAN PLATELET VOLUME 8.2 fL (7.2-11.7); MONO # 0.5 K/uL (0.0-0.8); MONO % 11.2 % (0.0-10.0); NRBC % 0.1 % (0.0-2.0); RED CELL DISTRIBUTION WIDTH 13.9 % (11.5-14.5); WHITE BLOOD COUNT 4.3 K/uL (4.8-10.8)
[2017-05-10 09:40] LABS: POTASSIUM 4.1 mmol/L (3.6-5.2)
[2017-05-10 09:42] LABS: BILIRUBIN,TOTAL 0.9 mg/dL (0.2-1.3)
[2017-05-10 09:43] LABS: ALB/GLOB RATIO 0.9 (1.0-2.1); CALCIUM 7.9 mg/dl (8.6-10.4); TOTAL PROTEIN 6.1 g/dL (6.3-8.3)
--- NOTE | 2017-05-10 10:19 | CP.PCM.PN ---
Subjective - Date & Time of Evaluation Date of Evaluation: 05/10/17 Time of Evaluation: 10:00 - Subjective Subjective: discussed on rounds no fever t cells pending Objective - Vital Signs/Intake and Output Vital Signs (last 24 hours): Temp Pulse Resp BP Pulse Ox 98.8 F 87 20 109/64 94 L 05/09/17 23:16 05/09/17 23:30 05/09/17 23:16 05/09/17 23:16 05/09/17 23:16 Intake and Output: 05/10/17 05/10/17 06:59 18:59 Intake Total 120 Balance 120 - Medications Medications: Current Medications Alprazolam (Xanax) 0.5 mg PO TID [facility] Last Admin: 05/10/17 10:12 Dose: 0.5 mg Calcium Acetate (Phoslo) 667 mg PO TID [facility] Last Admin: 05/10/17 10:13 Dose: Not Given Darunavir (Prezista) 800 mg PO DAILY [facility] Last Admin: 05/10/17 10:13 Dose: 800 mg Docusate Sodium (Colace) 100 mg PO DAILY [facility] Last Admin: 05/10/17 10:12 Dose: 100 mg Epoetin Miguel (Procrit) 4,000 unit IV MWF [facility] Famotidine (Pepcid) 20 mg PO BID [facility] Last Admin: 05/10/17 10:12 Dose: 20 mg Heparin Sodium (Porcine) (Heparin) 5,000 units SC Q12 [facility] Heparin Sodium (Porcine) (Heparin) 3,700 units IVP [facility] Insulin Aspart (Novolog) 0 unit SC [facility] PRN Reason: Protocol Last Admin: 05/10/17 07:15 Dose: Not Given Insulin Glargine (Lantus) 10 unit SC HS [facility] Last Admin: 05/09/17 21:42 Dose: 10 units Raltegravir (Isentress) 400 mg PO BID [facility] Last Admin: 05/10/17 10:13 Dose: 400 mg [facility] (Norvir) [facility] Last Admin: 05/10/17 10:12 Dose: 100 mg - Labs Labs: 05/10/17 08:57 05/10/17 08:57 PT 10.5 SECONDS (9.7-12.2) 05/05/17 18:35 INR 0.9 05/05/17 18:35 APTT 30 SECONDS (21-34) 05/05/17 18:35 - Constitutional Appears: Non-toxic - Eye Exam Eye Exam: PERRL - ENT Exam ENT Exam: Mucous Membranes Dry - Neck Exam Neck Exam: absent: Lymphadenopathy - Respiratory Exam Respiratory Exam: Decreased Breath Sounds - Cardiovascular Exam Cardiovascular Exam: REGULAR RHYTHM - GI/Abdominal Exam GI & Abdominal Exam: Distended, Soft - Rectal Exam Rectal Exam: Deferred - Exam Exam: NORMAL INSPECTION Assessment and Plan (1) Diabetes mellitus Status: Acute (2) Diabetic nephropathy associated with type 2 diabetes mellitus Status: Chronic (3) HIV (human immunodeficiency virus infection) Status: Chronic (4) Hepatitis C antibody positive in blood Status: Acute (5) Hepatitis C antibody positive in blood Status: Acute
[2017-05-10] MEDS ORDERED: HEPARIN-NS 5,000 UNITS/500 ML 0 UNIT/0 ML BAG IV ONE (10:21)
--- NOTE | 2017-05-10 11:48 | CP.PCM.PN ---
Subjective - Date & Time of Evaluation Date of Evaluation: 05/10/17 Time of Evaluation: 11:45 - Subjective Subjective: dialysis uneventful yesterday for meghan placement npo denies any n/v/d/cp/sob/dizziness Objective - Vital Signs/Intake and Output Vital Signs (last 24 hours): Temp Pulse Resp BP Pulse Ox 97.9 F 71 20 125/69 95 05/10/17 08:00 05/10/17 08:00 05/10/17 08:00 05/10/17 08:00 05/10/17 08:00 Intake and Output: 05/10/17 05/10/17 06:59 18:59 Intake Total 120 Balance 120 - Medications Medications: Current Medications Alprazolam (Xanax) 0.5 mg PO TID [facility] Last Admin: 05/10/17 10:12 Dose: 0.5 mg Calcium Acetate (Phoslo) 667 mg PO TID [facility] Last Admin: 05/10/17 10:13 Dose: Not Given Darunavir (Prezista) 800 mg PO DAILY [facility] Last Admin: 05/10/17 10:13 Dose: 800 mg Docusate Sodium (Colace) 100 mg PO DAILY [facility] Last Admin: 05/10/17 10:12 Dose: 100 mg Epoetin Miguel (Procrit) 4,000 unit IV [facility] Famotidine (Pepcid) 20 mg PO BID [facility] Last Admin: 05/10/17 10:12 Dose: 20 mg Heparin Sodium (Porcine) (Heparin) 5,000 units SC Q12 [facility] Heparin Sodium (Porcine) (Heparin) 3,700 units IVP [facility] Insulin Aspart (Novolog) 0 unit SC [facility] PRN Reason: Protocol Last Admin: 05/10/17 07:15 Dose: Not Given Insulin Glargine (Lantus) 10 unit SC HS [facility] Last Admin: 05/09/17 21:42 Dose: 10 units Raltegravir (Isentress) 400 mg PO BID [facility] Last Admin: 05/10/17 10:13 Dose: 400 mg [facility] Last Admin: 05/10/17 10:12 Dose: 100 mg - Labs Labs: 05/10/17 08:57 05/10/17 08:57 PT 10.5 SECONDS (9.7-12.2) 05/05/17 18:35 INR 0.9 05/05/17 18:35 APTT 30 SECONDS (21-34) 05/05/17 18:35 - Constitutional Appears: Non-toxic, No Acute Distress - Head Exam Head Exam: NORMAL INSPECTION - ENT Exam ENT Exam: Mucous Membranes Dry - Neck Exam Neck Exam: Normal Inspection - Respiratory Exam Respiratory Exam: Clear to Ausculation Bilateral, NORMAL BREATHING PATTERN - Cardiovascular Exam Cardiovascular Exam: REGULAR RHYTHM, RRR Additional comments: rt chest permcath - GI/Abdominal Exam GI & Abdominal Exam: Soft, Normal Bowel Sounds - Extremities Exam Extremities Exam: Normal Inspection Assessment and Plan (1) CHF (congestive heart failure) Status: Acute (2) Dyspnea Status: Acute (3) ESRD (end stage renal disease) Status: Acute (4) Hepatitis C antibody positive in blood Status: Acute (5) Acute myocardial infarction Status: Acute (6) Anemia Status: Acute - Assessment and Plan (Free Text) Assessment: hd tomorrow check iron stores, on arm[place] po calcitriol
--- NOTE | 2017-05-10 13:18 | CP.PCM.PN ---
Subjective - Date & Time of Evaluation Date of Evaluation: 05/10/17 Time of Evaluation: - Subjective Subjective: OR on hold pending cardiac approval plan Objective - Vital Signs/Intake and Output Vital Signs (last 24 hours): Temp Pulse Resp BP Pulse Ox 97.9 F 75 20 125/69 95 05/10/17 08:00 05/10/17 08:00 05/10/17 08:00 05/10/17 08:00 05/10/17 08:00 Intake and Output: 05/10/17 05/10/17 06:59 18:59 Intake Total 120 Balance 120 - Medications Medications: Current Medications Alprazolam (Xanax) 0.5 mg PO TID [facility] Last Admin: 05/10/17 10:12 Dose: 0.5 mg Calcitriol (Rocaltrol) 0.5 mcg PO DAILY [facility] Calcium Acetate (Phoslo) 667 mg PO TID [facility] Last Admin: 05/10/17 10:13 Dose: Not Given Darunavir (Prezista) 800 mg PO DAILY [facility] Last Admin: 05/10/17 10:13 Dose: 800 mg Docusate Sodium (Colace) 100 mg PO DAILY [facility] Last Admin: 05/10/17 10:12 Dose: 100 mg Epoetin Miguel (Procrit) [facility] Famotidine (Pepcid) 20 mg PO BID [facility] Last Admin: 05/10/17 10:12 Dose: 20 mg Heparin Sodium (Porcine) (Heparin) 5,000 units SC Q12 [facility] Heparin Sodium (Porcine) (Heparin) 3,700 units IVP [facility] Insulin Aspart (Novolog) 0 unit SC [facility] PRN Reason: Protocol Last Admin: 05/10/17 12:40 Dose: Not Given Insulin Glargine (Lantus) 10 unit SC HS [facility] Last Admin: 05/09/17 21:42 Dose: 10 units Raltegravir (Isentress) 400 mg PO BID [facility] Last Admin: 05/10/17 10:13 Dose: 400 mg [facility] ([facility]) [facility] Last Admin: 05/10/17 10:12 Dose: 100 mg - Labs Labs: 05/10/17 08:57 05/10/17 08:57 PT 10.5 SECONDS (9.7-12.2) 05/05/17 18:35 INR 0.9 05/05/17 18:35 APTT 30 SECONDS (21-34) 05/05/17 18:35
--- NOTE | 2017-05-10 19:26 | CP.PCM.PN ---
Subjective - Date & Time of Evaluation Date of Evaluation: 05/10/17 Time of Evaluation: 09:00 - Subjective Subjective: Dr. Dejesus service note: Patient seen in room and examined with medical attending Dr. Dejesus. He says he is feeling better since yesterday but is somtimes confused about when and where he is at. He denies any nausea, vomiting, diarrhea, chest pain, fever, or chills. His surgery has been delayed for cardiology to clear him. Objective - Vital Signs/Intake and Output Vital Signs (last 24 hours): Temp Pulse Resp BP Pulse Ox 97.7 F 72 18 111/58 L 97 05/10/17 16:00 05/10/17 16:00 05/10/17 16:00 05/10/17 16:00 05/10/17 16:00 - Medications Medications: Current Medications Albuterol/Ipratropium (Duoneb 3 Mg/0.5 Mg (3 Ml) Ud) 3 ml INH RQ6 [facility] Alprazolam (Xanax) 0.5 mg PO TID [facility] Last Admin: 05/10/17 17:27 Dose: 0.5 mg Calcitriol (Rocaltrol) 0.5 mcg PO DAILY [facility] Calcium Acetate (Phoslo) 667 mg PO TID [facility] Last Admin: 05/10/17 17:28 Dose: 667 mg Darunavir (Prezista) 800 mg PO DAILY [facility] Last Admin: 05/10/17 10:13 Dose: 800 mg Docusate Sodium (Colace) 100 mg PO DAILY [facility] Last Admin: 05/10/17 10:12 Dose: 100 mg Epoetin Miguel (Procrit) 4,000 unit IV MWF [facility] Famotidine (Pepcid) 20 mg PO BID [facility] Last Admin: 05/10/17 17:28 Dose: 20 mg Heparin Sodium (Porcine) (Heparin) 5,000 units SC Q12 [facility] Heparin Sodium (Porcine) (Heparin) 3,700 units IVP MWF [facility] Insulin Aspart (Novolog) 0 unit SC ACHS [facility] PRN Reason: Protocol Last Admin: 05/10/17 17:28 Dose: 3 unit Insulin Glargine (Lantus) 10 unit SC HS [facility] Last Admin: 05/09/17 21:42 Dose: 10 units Raltegravir (Isentress) 400 mg PO BID [facility] Last Admin: 05/10/17 17:28 Dose: 400 mg Ritonavir (Norvir) 100 mg PO BIDBS [facility] Last Admin: 05/10/17 17:28 Dose: 100 mg - Labs Labs: 05/10/17 08:57 05/10/17 08:57 PT 10.5 SECONDS (9.7-12.2) 05/05/17 18:35 INR 0.9 05/05/17 18:35 APTT 30 SECONDS (21-34) 05/05/17 18:35 - Constitutional Appears: Non-toxic, No Acute Distress, Confused - Head Exam Head Exam: NORMAL INSPECTION - ENT Exam ENT Exam: Normal Exam - Respiratory Exam Respiratory Exam: Clear to Ausculation Bilateral. absent: Rhonchi, Wheezes - Cardiovascular Exam Cardiovascular Exam: REGULAR RHYTHM, RRR, +S1, +S2. absent: Gallop, Rubs - GI/Abdominal Exam GI & Abdominal Exam: Soft, Normal Bowel Sounds. absent: Tenderness - Extremities Exam Extremities Exam: absent: Pedal Edema - Back Exam Back Exam: NORMAL INSPECTION - Skin Skin Exam: Normal Color, Warm Assessment and Plan - Assessment and Plan (Free Text) Assessment: 1) ESRD 05/10: Patient for AV Fistula surgery delayed, rescheduled for 05/12. 05/09: Patient needs terminal gauger supervisor dialysis arrangement for discharge. GFR 6 NPO for sean catheter placement today with Dr Gallegos Surgery consulted Dr Gallegos Clinical Operations Manager Dr Siddiqui consulted Hepatitis C 05/10: Spoke with Dr. Maldonado, we will get viral loads and genotypes. (2) CHF with AICD BNP 2220 f/u CXR report (3) HTN well controlled without medications (4) HIV 05/10: continue triple therapy, follow up viral loads. 05/09: triple therapy started. Currently not on any medications ID Dr Maldonado consulted- help appreciated (5) DM ISS Lantus 10u SC HS Accuchecks (6) Prophylactic measures Heparin Pepcid SCDs
[2017-05-10] MEDS: Albuterol-Ipratrop 3 mg / 0.5 (3 ml) UD INH SCH (19:44)
[2017-05-10] MEDS: (Lantus) Insulin Glargine, Recombinant SC SCH (22:15)
--- NOTE | 2017-05-10 22:19 | CP.PCM.CON ---
Past Patient History - Infectious Disease Hx of Infectious Diseases: None - Past Medical History & Family History Past Medical History?: Yes - Past Social History Smoking Status: Heavy Smoker > 10 Cigarettes Daily - CARDIAC Hx Hypertension: Yes - ENDOCRINE/METABOLIC Hx Diabetes Mellitus Type 2: Yes - HEMATOLOGICAL/ONCOLOGICAL Hx Human Immunodeficiency Virus (HIV): Yes - MUSCULOSKELETAL/RHEUMATOLOGICAL Hx Falls: Yes (multiple stage healing laceration) - PSYCHIATRIC Hx Substance Use: No - SURGICAL HISTORY Hx Surgeries: Yes Other/Comment: AICD placement. - ANESTHESIA Hx Anesthesia: Yes Hx Anesthesia Reactions: No Hx Malignant Hyperthermia: No Has any member of the family had a problem w/ anesthesia?: No Meds Allergies/Adverse Reactions: Allergies Allergy/AdvReac Type Severity Reaction Status Date / Time No Known Allergies Allergy Verified 05/05/17 17:26 - Medications Medications: Current Medications Albuterol/Ipratropium (Duoneb 3 Mg/0.5 Mg (3 Ml) Ud) 3 ml INH RQ6 [facility] Last Admin: 05/10/17 19:44 Dose: 3 ml Alprazolam (Xanax) 0.5 mg PO TID [facility] Last Admin: 05/10/17 17:27 Dose: 0.5 mg Calcitriol (Rocaltrol) 0.5 mcg PO DAILY [facility] Calcium Acetate (Phoslo) 667 mg PO TID [facility] Last Admin: 05/10/17 17:28 Dose: 667 mg Darunavir (Prezista) 800 mg PO DAILY [facility] Last Admin: 05/10/17 10:13 Dose: 800 mg Docusate Sodium (Colace) 100 mg PO DAILY [facility] Last Admin: 05/10/17 10:12 Dose: 100 mg Epoetin Miguel (Procrit) 4,000 unit IV F [facility] Famotidine (Pepcid) 20 mg PO BID [facility] Last Admin: 05/10/17 17:28 Dose: 20 mg Heparin Sodium (Porcine) (Heparin) 5,000 units SC Q12 [facility] Heparin Sodium (Porcine) (Heparin) 3,700 units IVP MWF [facility] Insulin Aspart (Novolog) 0 unit SC ACHS [facility] PRN Reason: Protocol Last Admin: 05/10/17 22:15 Dose: Not Given Insulin Glargine (Lantus) 10 unit SC HS [facility] Last Admin: 05/10/17 22:15 Dose: Not Given Raltegravir (Isentress) 400 mg PO BID [facility] Last Admin: 05/10/17 17:28 Dose: 400 mg Ritonavir (Norvir) 100 mg PO BIDBS [facility] Last Admin: 05/10/17 17:28 Dose: 100 mg Results - Vital Signs Recent Vital Signs: Last Vital Signs Temp 97.7 F 05/10/17 16:00 Pulse 72 05/10/17 16:00 Resp 18 05/10/17 16:00 BP 111/58 L 05/10/17 16:00 Pulse Ox 97 05/10/17 16:00 - Labs Result Diagrams: 05/10/17 08:57 05/10/17 08:57 Labs: Laboratory Results - last 24 hr 05/07/17 05/09/17 05/10/17 07:20 14:31 06:24 WBC RBC Hgb Hct MCV MCH MCHC RDW Plt Count MPV Neut % (Auto) Lymph % (Auto) [place] % (Auto) Eos % (Auto) Baso % (Auto) Neut # Lymph # [place] # Eos # Baso # Sodium Potassium Chloride Carbon Dioxide Anion Gap BUN Creatinine Est GFR ( Amer) Est GFR (Non-Af Amer) POC Glucose (mg/dL) 93 Random Glucose Calcium Magnesium Total Bilirubin AST ALT Alkaline Phosphatase Total Protein Albumin Globulin Albumin/Globulin Ratio PTH Intact Whole Molec 424 H Absolute Lymphs (Flow) 1000 % CD4 Cells 28 L Absolute CD4 Count 280 L T-Help/Suppress Ratio 0.54 L % CD8 Cells 52 H Absolute CD8 Count 516 05/10/17 05/10/17 05/10/17 08:57 08:57 12:05 WBC 4.3 L RBC 2.57 L Hgb 8.8 L Hct 25.4 L MCV 99.0 H MCH 34.2 H MCHC 34.5 RDW 13.9 Plt Count 119 L MPV 8.2 Neut % (Auto) 68.1 Lymph % (Auto) 18.5 L [place] % (Auto) 11.2 H Eos % (Auto) 1.6 Baso % (Auto) 0.6 Neut # 3.0 Lymph # 0.8 L [place] # 0.5 Eos # 0.1 Baso # 0.0 Sodium 134 Potassium 4.1 Chloride 96 L Carbon Dioxide 29 Anion Gap 14 BUN 35 H Creatinine 8.5 H* D Est GFR ( Amer) 8 Est GFR (Non-Af Amer) 7 POC Glucose (mg/dL) 101 Random Glucose 87 Calcium 7.9 L Magnesium 2.0 Total Bilirubin 0.9 AST 110 H D ALT 100 H Alkaline Phosphatase 47 Total Protein 6.1 L Albumin 2.9 L Globulin 3.2 Albumin/Globulin Ratio 0.9 L PTH Intact Whole [place] Absolute Lymphs (Flow) % CD4 Cells Absolute CD4 Count T-Help/Suppress Ratio % CD8 Cells Absolute CD8 Count 05/10/17 17:02 WBC RBC Hgb Hct MCV MCH MCHC RDW Plt Count MPV Neut % (Auto) Lymph % (Auto) [place] % (Auto) Eos % (Auto) Baso % (Auto) Neut # Lymph # [place] # Eos # Baso # Sodium Potassium Chloride Carbon Dioxide Anion Gap BUN Creatinine Est GFR ( Amer) Est GFR (Non-Af Amer) POC Glucose (mg/dL) 259 H Random Glucose Calcium Magnesium Total Bilirubin AST ALT Alkaline Phosphatase Total Protein Albumin Globulin Albumin/Globulin Ratio PTH Intact Whole [place] Absolute Lymphs (Flow) % CD4 Cells Absolute CD4 Count T-Help/Suppress Ratio % CD8 Cells Absolute CD8 Count Assessment & Plan (1) ESRD (end stage renal disease) Assessment and Plan: Pt kane proceed for av fistula revision Status: Acute (2) Coagulopathy Status: Acute
[2017-05-11] MEDS: Albuterol-Ipratrop 3 mg / 0.5 (3 ml) UD INH SCH ×4 (01:32→19:26)
[2017-05-11 06:46] LABS: POTASSIUM 4.2 mmol/L (3.6-5.2)
[2017-05-11 06:48] LABS: BILIRUBIN,TOTAL 0.8 mg/dL (0.2-1.3); TOTAL PROTEIN 6.1 g/dL (6.3-8.3)
[2017-05-11 06:49] LABS: CALCIUM 8.1 mg/dl (8.6-10.4); PHOSPHOROUS 4.4 mg/dL (2.5-4.5)
[2017-05-11 07:01] LABS: BASO % 0.6 % (0.0-2.0); EOS # 0.1 K/uL (0.0-0.7); EOS % 2.5 % (0.0-4.0); HEMATOCRIT 25.4 % (35.0-51.0); LYMPH # 1.1 K/uL (1.0-4.3); LYMPH % 20.5 % (20.0-40.0); MEAN CELL VOLUME 98.8 fL (80.0-94.0); MEAN CORPUSCULAR HEMOGLOBIN 34.5 pg (27.0-31.0); MEAN CORPUSCULAR HGB CONC 34.9 g/dL (33.0-37.0); MEAN PLATELET VOLUME 8.1 fL (7.2-11.7); MONO # 0.5 K/uL (0.0-0.8); MONO % 9.5 % (0.0-10.0); NRBC % 0.1 % (0.0-2.0); RED CELL DISTRIBUTION WIDTH 13.7 % (11.5-14.5); WHITE BLOOD COUNT 5.1 K/uL (4.8-10.8)
[2017-05-11] MEDS: (Novolog) Insulin Aspart, Recombinant 100 u/ml 10 ml vial SC SCH ×4 (07:23→22:06)
--- NOTE | 2017-05-11 08:50 | CP.PCM.PN ---
Subjective - Date & Time of Evaluation Date of Evaluation: 05/11/17 Time of Evaluation: 07:50 - Subjective Subjective: PGY2 Medicine Note - Dr. Dejesus's service: Patient seen and examined at bedside this AM. Patient knows where he is and what month and year it is. Patient says he feels good. Patient says he has not had dialysis yet. Patient did not know what an AV fistula was. This was explained to the patient. Objective - Vital Signs/Intake and Output Vital Signs (last 24 hours): Temp Pulse Resp BP Pulse Ox 97.8 F 62 20 130/73 94 L 05/11/17 00:00 05/11/17 04:07 05/11/17 00:00 05/11/17 00:00 05/11/17 00:00 - Medications Medications: Current Medications Albuterol/Ipratropium (Duoneb 3 Mg/0.5 Mg (3 Ml) Ud) 3 ml INH RQ6 [facility] Last Admin: 05/11/17 01:32 Dose: 3 ml Alprazolam (Xanax) 0.5 mg PO TID [facility] Last Admin: 05/10/17 17:27 Dose: 0.5 mg Calcitriol (Rocaltrol) 0.5 mcg PO DAILY [facility] Calcium Acetate (Phoslo) 667 mg PO TID [facility] Last Admin: 05/10/17 17:28 Dose: 667 mg Darunavir (Prezista) 800 mg PO DAILY [facility] Last Admin: 05/10/17 10:13 Dose: 800 mg Docusate Sodium (Colace) 100 mg PO DAILY [facility] Last Admin: 05/10/17 10:12 Dose: 100 mg Epoetin Miguel (Procrit) 4,000 unit IV F [facility] Famotidine (Pepcid) 20 mg PO BID [facility] Last Admin: 05/10/17 17:28 Dose: 20 mg Heparin Sodium (Porcine) (Heparin) 5,000 units SC Q12 [facility] Heparin Sodium (Porcine) (Heparin) 3,700 units IVP MWF [facility] Insulin Aspart (Novolog) 0 unit SC ACHS [facility] PRN Reason: Protocol Last Admin: 05/11/17 07:23 Dose: Not Given Insulin Glargine (Lantus) 10 unit SC HS [facility] Last Admin: 05/10/17 22:15 Dose: Not Given Raltegravir (Isentress) 400 mg PO BID [facility] Last Admin: 05/10/17 17:28 Dose: 400 mg Ritonavir (Norvir) 100 mg PO BIDBS [facility] Last Admin: 05/10/17 17:28 Dose: 100 mg - Labs Labs: 05/11/17 06:24 05/11/17 06:24 PT 10.5 SECONDS (9.7-12.2) 05/05/17 18:35 INR 0.9 05/05/17 18:35 APTT 30 SECONDS (21-34) 05/05/17 18:35 - Constitutional Appears: Non-toxic, No Acute Distress - Head Exam Head Exam: NORMAL INSPECTION - Eye Exam Eye Exam: EOMI - ENT Exam ENT Exam: Mucous Membranes Moist - Respiratory Exam Respiratory Exam: Clear to Ausculation Bilateral, NORMAL BREATHING PATTERN. absent: Rales, Rhonchi, Wheezes - Cardiovascular Exam Cardiovascular Exam: REGULAR RHYTHM, +S1, +S2. absent: Gallop, Rubs, Murmur - GI/Abdominal Exam GI & Abdominal Exam: Soft, Normal Bowel Sounds. absent: Tenderness - Extremities Exam Extremities Exam: Normal Capillary Refill. absent: Pedal Edema - Neurological Exam Neurological Exam: Alert, Awake, Oriented x3 - Psychiatric Exam Psychiatric exam: Normal Affect, Normal Mood - Skin Skin Exam: Normal Color, Warm Assessment and Plan - Assessment and Plan (Free Text) Assessment: 1) ESRD 05/11: Dr. Avila wrote that patient can get AV fistula. OR on 05/12 Hemodialysis ordered MWF by Dr. Siddiqui 05/10: Patient for AV Fistula surgery delayed, rescheduled for 05/12. 05/09: Patient needs [facility] dialysis arrangement for discharge. GFR 6 NPO for sean catheter placement today with Dr Gallegos Surgery consulted Dr Gallegos Office Engineer Dr Siddiqui consulted Hepatitis C 05/10: Spoke with Dr. Maldonado, we will get viral loads and genotypes. (2) CHF with AICD BNP 2220 CXR 05/06/17 - s/p insertion right IJ permacath, no pneumonia, minor bibasilar atelectasis (3) Anemia Hgb 8.9 Monitor F/U stool occult blood (4) HTN well controlled without medications (5) HIV triple therapy started 05/09/17 F/U viral loads ID Dr Maldonado consulted- help appreciated (6) DM ISS Lantus 10u SC HS Accuchecks (7) Prophylactic measures Heparin Pepcid SCDs Management per Dr. Dejesus
[2017-05-11] MEDS ORDERED: EPOETIN ALFA 4,000 UNIT/ML ML Dialysis IV SCH (09:00)
--- NOTE | 2017-05-11 10:16 | CP.PCM.PN ---
Subjective - Date & Time of Evaluation Date of Evaluation: 05/11/17 Time of Evaluation: 10:13 - Subjective Subjective: Cardiology Note for Dr. Avila Pt seen and examined at bedside. Pt with no acute events overnight as per nursing. Pt resting comfortably in bed, with no acute complaints. Pt scheduled for AV fistula today. Denies CP or SOB. Objective - Vital Signs/Intake and Output Vital Signs (last 24 hours): Temp Pulse Resp BP Pulse Ox 97.9 F 63 20 124/73 98 05/11/17 07:00 05/11/17 07:00 05/11/17 07:00 05/11/17 07:00 05/11/17 07:00 Intake and Output: 05/11/17 05/11/17 06:59 18:59 Intake Total 240 Balance 240 - Medications Medications: Current Medications Albuterol/Ipratropium (Duoneb 3 Mg/0.5 Mg (3 Ml) Ud) 3 ml INH RQ6 [facility] Last Admin: 05/11/17 09:03 Dose: 3 ml Alprazolam (Xanax) 0.5 mg PO TID [facility] Last Admin: 05/10/17 17:27 Dose: 0.5 mg Calcitriol (Rocaltrol) 0.5 mcg PO DAILY [facility] Calcium Acetate (Phoslo) 667 mg PO TID [facility] Last Admin: 05/10/17 17:28 Dose: 667 mg Darunavir (Prezista) 800 mg PO DAILY [facility] Last Admin: 05/10/17 10:13 Dose: 800 mg Docusate Sodium (Colace) 100 mg PO DAILY [facility] Last Admin: 05/10/17 10:12 Dose: 100 mg Epoetin Miguel (Procrit) 4,000 unit IV [facility] Famotidine (Pepcid) 20 mg PO DAILY [facility] Heparin Sodium (Porcine) (Heparin) 5,000 units SC Q12 [facility] Heparin Sodium (Porcine) (Heparin) 3,700 units IVP [facility] Insulin Aspart (Novolog) 0 unit SC ACHS [facility] PRN Reason: Protocol Last Admin: 05/11/17 07:23 Dose: Not Given Insulin Glargine (Lantus) 10 unit SC HS [facility] Last Admin: 05/10/17 22:15 Dose: Not Given Raltegravir (Isentress) 400 mg PO BID [facility] Last Admin: 05/10/17 17:28 Dose: 400 mg Ritonavir (Norvir) 100 mg PO [facility] Last Admin: 05/11/17 08:48 Dose: 100 mg - Labs Labs: 05/11/17 06:24 05/11/17 06:24 PT 10.5 SECONDS (9.7-12.2) 05/05/17 18:35 INR 0.9 05/05/17 18:35 APTT 30 SECONDS (21-34) 05/05/17 18:35 - Constitutional Appears: Well, No Acute Distress - Head Exam Head Exam: ATRAUMATIC, NORMAL INSPECTION, NORMOCEPHALIC - Respiratory Exam Respiratory Exam: Clear to Ausculation Bilateral, NORMAL BREATHING PATTERN - Cardiovascular Exam Cardiovascular Exam: RRR, +S1, +S2 - GI/Abdominal Exam GI & Abdominal Exam: Soft, Normal Bowel Sounds. absent: Tenderness - Extremities Exam Extremities Exam: Normal Inspection. absent: Calf Tenderness - Neurological Exam Neurological Exam: Alert, Awake Assessment and Plan (1) ESRD (end stage renal disease) Assessment & Plan: Pt can proceed for AV fistula today Continue current medical regimen Status: Acute
--- NOTE | 2017-05-11 11:37 | CP.PCM.PN ---
Subjective - Date & Time of Evaluation Date of Evaluation: 05/11/17 Time of Evaluation: 11:35 - Subjective Subjective: Surgery: Dr. Gallegos Pt seen and examined. Resting comfortably in bed. No complaints. Objective - Vital Signs/Intake and Output Vital Signs (last 24 hours): Temp Pulse Resp BP Pulse Ox 97.9 F 63 20 124/73 98 05/11/17 07:00 05/11/17 07:00 05/11/17 07:00 05/11/17 07:00 05/11/17 07:00 Intake and Output: 05/11/17 05/11/17 06:59 18:59 Intake Total 240 Balance 240 - Medications Medications: Current Medications Albuterol/Ipratropium (Duoneb 3 Mg/0.5 Mg (3 Ml) Ud) 3 ml INH RQ6 [facility] Last Admin: 05/11/17 09:03 Dose: 3 ml Alprazolam (Xanax) 0.5 mg PO TID [facility] Last Admin: 05/10/17 17:27 Dose: 0.5 mg Calcitriol (Rocaltrol) 0.5 mcg PO DAILY [facility] Calcium Acetate (Phoslo) 667 mg PO TID [facility] Last Admin: 05/10/17 17:28 Dose: 667 mg Darunavir (Prezista) 800 mg PO DAILY [facility] Last Admin: 05/10/17 10:13 Dose: 800 mg Docusate Sodium (Colace) 100 mg PO DAILY [facility] Last Admin: 05/10/17 10:12 Dose: 100 mg Epoetin Miguel (Procrit) 4,000 unit IV MWF [facility] Famotidine (Pepcid) 20 mg PO DAILY [facility] Heparin Sodium (Porcine) (Heparin) 5,000 units SC Q12 [facility] Heparin Sodium (Porcine) (Heparin) 3,700 units IVP MWF [facility] Insulin Aspart (Novolog) 0 unit SC ACHS [facility] PRN Reason: Protocol Last Admin: 05/11/17 07:23 Dose: Not Given Insulin Glargine (Lantus) 10 unit SC HS [facility] Last Admin: 05/10/17 22:15 Dose: Not Given Raltegravir (Isentress) 400 mg PO BID [facility] Last Admin: 05/10/17 17:28 Dose: 400 [facility] Admin: 05/11/17 08:48 Dose: 100 mg - Labs Labs: 05/11/17 06:24 05/11/17 06:24 PT 10.5 SECONDS (9.7-12.2) 05/05/17 18:35 INR 0.9 05/05/17 18:35 APTT 30 SECONDS (21-34) 05/05/17 18:35 - Constitutional Appears: Non-toxic, No Acute Distress - Head Exam Head Exam: ATRAUMATIC, NORMOCEPHALIC - Eye Exam Eye Exam: EOMI - ENT Exam ENT Exam: Mucous Membranes Moist - Neck Exam Neck Exam: Full ROM - Respiratory Exam Respiratory Exam: NORMAL BREATHING PATTERN. absent: Accessory Muscle Use, Respiratory Distress - GI/Abdominal Exam GI & Abdominal Exam: Soft. absent: Tenderness - Extremities Exam Extremities Exam: Calf Tenderness. absent: Pedal Edema - Neurological Exam Neurological Exam: Alert, Awake, Oriented x3 - Psychiatric Exam Psychiatric exam: Normal Affect, Normal Mood Assessment and Plan - Assessment and Plan (Free Text) Assessment: 56M w. ESRD -To OR tomorrow for AVF -clear from cardiac standpoint -NPO at midnight -hold anticoagulation -d/w attending Oziel PGY2
[2017-05-11] MEDS ORDERED: Epoetin Alfa 10,000 unit/ml Dialysis IV SCH (14:22)
--- NOTE | 2017-05-11 14:26 | CP.PCM.PN ---
Subjective - Date & Time of Evaluation Date of Evaluation: 05/11/17 Time of Evaluation: 14:23 - Subjective Subjective: Seen at dialysis Await AV access Feeling better Hg decreased- will increase CONSUELO dose Objective - Vital Signs/Intake and Output Vital Signs (last 24 hours): Temp Pulse Resp BP Pulse Ox 97.9 F 63 20 124/73 98 05/11/17 07:00 05/11/17 07:00 05/11/17 07:00 05/11/17 07:00 05/11/17 07:00 Intake and Output: 05/11/17 05/11/17 06:59 18:59 Intake Total 240 Balance 240 - Medications Medications: Current Medications Albuterol/Ipratropium (Duoneb 3 Mg/0.5 Mg (3 Ml) Ud) 3 ml INH RQ6 [facility] Last Admin: 05/11/17 13:44 Dose: Not Given Alprazolam (Xanax) 0.5 mg PO TID [facility] Last Admin: 05/11/17 11:50 Dose: 0.5 mg Calcitriol (Rocaltrol) 0.5 mcg PO DAILY [facility] Last Admin: 05/11/17 11:50 Dose: 0.5 mcg Calcium Acetate (Phoslo) 667 mg PO TID [facility] Last Admin: 05/11/17 11:50 Dose: 667 mg Darunavir (Prezista) 800 mg PO DAILY [facility] Last Admin: 05/11/17 11:50 Dose: 800 mg Docusate Sodium (Colace) 100 mg PO DAILY [facility] Last Admin: 05/11/17 11:50 Dose: 100 mg Epoetin Miguel (Procrit) 10,000 unit IV MWF [facility] Famotidine (Pepcid) 20 mg PO DAILY [facility] Last Admin: 05/11/17 11:50 Dose: 20 mg Heparin Sodium (Porcine) (Heparin) 5,000 units SC Q12 [facility] Heparin Sodium (Porcine) (Heparin) 3,700 units IVP MWF [facility] Insulin Aspart (Novolog) 0 unit SC ACHS [facility] PRN Reason: Protocol Last Admin: 05/11/17 13:22 Dose: 1 unit Insulin Glargine (Lantus) 10 unit SC HS [facility] Last Admin: 05/10/17 22:15 Dose: Not Given Raltegravir (Isentress) 400 mg PO BID [facility] Last Admin: 05/11/17 11:50 Dose: 400 mg Ritonavir (Norvir) 100 mg PO [facility] Last Admin: 05/11/17 08:48 Dose: 100 mg - Labs Labs: 05/11/17 06:24 05/11/17 06:24 PT 10.5 SECONDS (9.7-12.2) 05/05/17 18:35 INR 0.9 05/05/17 18:35 APTT 30 SECONDS (21-34) 05/05/17 18:35 - Constitutional Appears: No Acute Distress, Chronically Ill - Head Exam Head Exam: ATRAUMATIC, NORMAL INSPECTION - Eye Exam Eye Exam: EOMI, Normal appearance - Neck Exam Neck Exam: Normal Inspection. absent: Tenderness - Respiratory Exam Respiratory Exam: Clear to Ausculation Bilateral, NORMAL BREATHING PATTERN - GI/Abdominal Exam GI & Abdominal Exam: Soft. absent: Tenderness - Extremities Exam Extremities Exam: Normal Inspection. absent: Tenderness - Neurological Exam Neurological Exam: Awake, CN II-XII Intact - Skin Skin Exam: Dry, Warm Assessment and Plan (1) ESRD (end stage renal disease) Status: Acute (2) Hepatitis C antibody positive in blood Status: Acute (3) HIV (human immunodeficiency virus infection) Status: Chronic - Assessment and Plan (Free Text) Plan: AV access Dialysis MWF Will need outpt HD placement
[2017-05-11] MEDS: Epoetin Alfa 10,000 unit/ml Dialysis IV SCH (18:07)
--- NOTE | 2017-05-11 18:49 | CP.PCM.PN ---
Subjective - Date & Time of Evaluation Date of Evaluation: 05/11/17 Time of Evaluation: 08:00 - Subjective Subjective: tolerating arv rx for av access cont rx Objective - Vital Signs/Intake and Output Vital Signs (last 24 hours): Temp Pulse Resp BP Pulse Ox 97.8 F 75 18 135/74 95 05/11/17 18:21 05/11/17 18:21 05/11/17 18:21 05/11/17 18:21 05/11/17 18:21 Intake and Output: 05/11/17 05/11/17 06:59 18:59 Intake Total 240 520 Balance 240 520 - Medications Medications: Current Medications Albuterol/Ipratropium (Duoneb 3 Mg/0.5 Mg (3 Ml) Ud) 3 ml INH RQ6 [facility] Last Admin: 05/11/17 13:44 Dose: Not Given Alprazolam (Xanax) 0.5 mg PO TID [facility] Last Admin: 05/11/17 18:22 Dose: 0.5 mg Calcitriol (Rocaltrol) 0.5 mcg PO DAILY [facility] Last Admin: 05/11/17 11:50 Dose: 0.5 mcg Calcium Acetate (Phoslo) 667 mg PO TID [facility] Last Admin: 05/11/17 18:22 Dose: 667 mg Darunavir (Prezista) 800 mg PO DAILY [facility] Last Admin: 05/11/17 11:50 Dose: 800 mg Docusate Sodium (Colace) 100 mg PO DAILY [facility] Last Admin: 05/11/17 11:50 Dose: 100 mg Epoetin Miguel (Procrit) 10,000 unit IV [facility] Last Admin: 05/11/17 18:07 Dose: 10,000 unit Famotidine (Pepcid) 20 mg PO DAILY [facility] Last Admin: 05/11/17 11:50 Dose: 20 mg Heparin Sodium (Porcine) (Heparin) 5,000 units SC Q12 [facility] Heparin Sodium (Porcine) (Heparin) 3,700 units IVP MWF [facility] Last Admin: 05/11/17 17:56 Dose: 3,700 units Insulin Aspart (Novolog) 0 unit SC ACHS [facility] PRN Reason: Protocol Last Admin: 05/11/17 18:19 Dose: Not Given Insulin Glargine (Lantus) 10 unit SC HS [facility] Last Admin: 05/10/17 22:15 Dose: Not Given Raltegravir (Isentress) 400 mg PO BID [facility] Last Admin: 05/11/17 18:22 Dose: 400 [facility] Admin: 05/11/17 18:22 Dose: 100 mg - Labs Labs: 05/11/17 06:24 05/11/17 06:24 PT 10.5 SECONDS (9.7-12.2) 05/05/17 18:35 INR 0.9 05/05/17 18:35 APTT 30 SECONDS (21-34) 05/05/17 18:35 Assessment and Plan (1) Diabetes mellitus Status: Acute (2) Diabetic nephropathy associated with type 2 diabetes mellitus Status: Chronic (3) HIV (human immunodeficiency virus infection) Status: Chronic (4) Hepatitis C antibody positive in blood Status: Acute (5) Hepatitis C antibody positive in blood Status: Acute
[2017-05-11] MEDS: (Lantus) Insulin Glargine, Recombinant SC SCH (22:06)
[2017-05-12] MEDS: Albuterol-Ipratrop 3 mg / 0.5 (3 ml) UD INH SCH ×4 (01:47→19:35)
[2017-05-12] MEDS ORDERED: HEPARIN-NS 5,000 UNITS/500 ML 5,000 UNIT/500 ML BAG IV ONE (07:44)
[2017-05-12] MEDS ORDERED: ceFAZolin IV 1 gm in Dextrose 0 GM/0 ML BAG IVPB ONE (07:44)
[2017-05-12] MEDS: (Novolog) Insulin Aspart, Recombinant 100 u/ml 10 ml vial SC SCH ×4 (07:58→21:33)
[2017-05-12 08:27] LABS: WHITE BLOOD COUNT 4.7 K/uL (4.8-10.8)
[2017-05-12 08:39] LABS: BASO % 0.5 % (0.0-2.0); EOS # 0.1 K/uL (0.0-0.7); EOS % 2.1 % (0.0-4.0); HEMATOCRIT 26.2 % (35.0-51.0); LYMPH % 21.8 % (20.0-40.0); MEAN CELL VOLUME 100.4 fL (80.0-94.0); MEAN CORPUSCULAR HEMOGLOBIN 34.3 pg (27.0-31.0); MEAN CORPUSCULAR HGB CONC 34.2 g/dL (33.0-37.0); MEAN PLATELET VOLUME 8.1 fL (7.2-11.7); MONO # 0.5 K/uL (0.0-0.8); MONO % 10.3 % (0.0-10.0); NRBC % 0.1 % (0.0-2.0); RED CELL DISTRIBUTION WIDTH 13.6 % (11.5-14.5)
--- NOTE | 2017-05-12 08:42 | CP.PCM.PN ---
Subjective - Date & Time of Evaluation Date of Evaluation: 05/12/17 Time of Evaluation: 08:39 - Subjective Subjective: Cardiology Progress Note for Dr. Avila Pt seen and examined at bedside. Pt doing well overnight with no complaints at this time. Pt underwent dialysis treatment yesterday. He is scheduled for AV fistula today. Denies CP, SOB, N/V/D. Objective - Vital Signs/Intake and Output Vital Signs (last 24 hours): Temp Pulse Resp BP Pulse Ox 97.5 F L 63 20 109/74 97 05/12/17 08:00 05/12/17 08:00 05/12/17 08:00 05/12/17 08:00 05/12/17 08:00 Intake and Output: 05/12/17 05/12/17 06:59 18:59 Intake Total 350 Balance 350 - Medications Medications: Current Medications Albuterol/Ipratropium (Duoneb 3 Mg/0.5 Mg (3 Ml) Ud) 3 ml INH RQ6 [facility] Last Admin: 05/12/17 07:17 Dose: 3 ml Alprazolam (Xanax) 0.5 mg PO TID [facility] Last Admin: 05/11/17 18:22 Dose: 0.5 mg Calcitriol (Rocaltrol) 0.5 mcg PO DAILY [facility] Last Admin: 05/11/17 11:50 Dose: 0.5 mcg Calcium Acetate (Phoslo) 667 mg PO TID [facility] Last Admin: 05/11/17 18:22 Dose: 667 mg Darunavir (Prezista) 800 mg PO DAILY [facility] Last Admin: 05/11/17 11:50 Dose: 800 mg Docusate Sodium (Colace) 100 mg PO DAILY [facility] Last Admin: 05/11/17 11:50 Dose: 100 mg Epoetin Miguel (Procrit) 10,000 unit IV MWF [facility] Last Admin: 05/11/17 18:07 Dose: 10,000 unit Famotidine (Pepcid) 20 mg PO DAILY [facility] Last Admin: 05/11/17 11:50 Dose: 20 mg Heparin Sodium (Porcine) (Heparin) 5,000 units SC Q12 [facility] Heparin Sodium (Porcine) (Heparin) 3,700 units IVP MWF [facility] Last Admin: 05/11/17 17:56 Dose: 3,700 units Insulin Aspart (Novolog) 0 unit SC ACHS [facility] PRN Reason: Protocol Last Admin: 05/12/17 07:58 Dose: Not Given Insulin Glargine (Lantus) 10 unit SC HS [facility] Last Admin: 05/11/17 22:06 Dose: Not Given Raltegravir (Isentress) 400 mg PO BID [facility] Last Admin: 05/11/17 18:22 Dose: 400 mg Ritonavir (Norvir) 100 mg PO BIDBS [facility] Last Admin: 05/11/17 18:22 Dose: 100 mg - Labs Labs: 05/11/17 06:24 05/11/17 06:24 PT 10.5 SECONDS (9.7-12.2) 05/05/17 18:35 INR 0.9 05/05/17 18:35 APTT 30 SECONDS (21-34) 05/05/17 18:35 - Constitutional Appears: Well, No Acute Distress - Head Exam Head Exam: ATRAUMATIC, NORMAL INSPECTION, NORMOCEPHALIC - Respiratory Exam Respiratory Exam: Clear to Ausculation Bilateral, NORMAL BREATHING PATTERN - Cardiovascular Exam Cardiovascular Exam: RRR, +S1, +S2 - GI/Abdominal Exam GI & Abdominal Exam: Soft, Normal Bowel Sounds. absent: Tenderness - Extremities Exam Extremities Exam: Normal Inspection - Neurological Exam Neurological Exam: Alert, Awake, Oriented x3 - Skin Skin Exam: Intact, Normal Color, Warm Assessment and Plan (1) ESRD (end stage renal disease) Assessment & Plan: Pt scheduled for AV fistula today Pt may proceed with surgery at this time Status: Acute
[2017-05-12 08:52] LABS: ALB/GLOB RATIO 0.8 (1.0-2.1); BILIRUBIN,TOTAL 0.6 mg/dL (0.2-1.3); TOTAL PROTEIN 6.3 g/dL (6.3-8.3)
[2017-05-12 08:53] LABS: CALCIUM 8.1 mg/dl (8.6-10.4)
--- NOTE | 2017-05-12 11:16 | CP.PCM.PN ---
Subjective - Date & Time of Evaluation Date of Evaluation: 05/12/17 Time of Evaluation: 11:14 - Subjective Subjective: Sent for AV access surgery s/p dialysis 05/11- UF 1300ml No new c/o CPs, SOB, n, v, f, chills Trying to arrange for outpt dilaysis Objective - Vital Signs/Intake and Output Vital Signs (last 24 hours): Temp Pulse Resp BP Pulse Ox 97.5 F L 63 20 109/74 97 05/12/17 08:00 05/12/17 08:00 05/12/17 08:00 05/12/17 08:00 05/12/17 08:00 Intake and Output: 05/12/17 05/12/17 06:59 18:59 Intake Total 350 Balance 350 - Medications Medications: Current Medications Albuterol/Ipratropium (Duoneb 3 Mg/0.5 Mg (3 Ml) Ud) 3 ml INH RQ6 [facility] Last Admin: 05/12/17 07:17 Dose: 3 ml Alprazolam (Xanax) 0.5 mg PO TID [facility] Last Admin: 05/12/17 10:14 Dose: 0.5 mg Calcitriol (Rocaltrol) 0.5 mcg PO DAILY [facility] Last Admin: 05/12/17 10:14 Dose: 0.5 mcg Calcium Acetate (Phoslo) 667 mg PO TID [facility] Last Admin: 05/12/17 10:14 Dose: 667 mg Darunavir (Prezista) 800 mg PO DAILY [facility] Last Admin: 05/12/17 10:14 Dose: 800 mg Docusate Sodium (Colace) 100 mg PO DAILY [facility] Last Admin: 05/12/17 10:14 Dose: 100 mg Epoetin Miguel (Procrit) 10,000 unit IV MWF [facility] Last Admin: 05/11/17 18:07 Dose: 10,000 unit Famotidine (Pepcid) 20 mg PO DAILY [facility] Last Admin: 05/12/17 10:14 Dose: 20 mg Heparin Sodium (Porcine) (Heparin) 5,000 units SC Q12 [facility] Heparin Sodium (Porcine) (Heparin) 3,700 units IVP MWF [facility] Last Admin: 05/11/17 17:56 Dose: 3,700 units Insulin Aspart (Novolog) 0 unit SC ACHS [facility] PRN Reason: Protocol Last Admin: 05/12/17 07:58 Dose: Not Given Insulin Glargine (Lantus) 10 unit SC HS [facility] Last Admin: 05/11/17 22:06 Dose: Not Given Raltegravir (Isentress) 400 mg PO BID [facility] Last Admin: 05/12/17 10:14 Dose: 400 mg Ritonavir (Norvir) 100 mg PO BIDBS [facility] Last Admin: 05/12/17 08:30 Dose: Not Given - Labs Labs: 05/12/17 08:20 05/12/17 08:20 PT 10.5 SECONDS (9.7-12.2) 05/05/17 18:35 INR 0.9 05/05/17 18:35 APTT 30 SECONDS (21-34) 05/05/17 18:35 - Constitutional Appears: No Acute Distress, Chronically Ill - Head Exam Head Exam: ATRAUMATIC, NORMAL INSPECTION - Eye Exam Eye Exam: EOMI, Normal appearance - Neck Exam Neck Exam: Normal Inspection. absent: Tenderness - Respiratory Exam Respiratory Exam: Clear to Ausculation Bilateral, NORMAL BREATHING PATTERN - Cardiovascular Exam Cardiovascular Exam: REGULAR RHYTHM, +S1 - GI/Abdominal Exam GI & Abdominal Exam: Soft. absent: Tenderness - Extremities Exam Extremities Exam: Normal Inspection. absent: Tenderness - Neurological Exam Neurological Exam: Alert, CN II-XII Intact - Skin Skin Exam: Dry, Warm Assessment and Plan (1) ESRD (end stage renal disease) Status: Acute (2) Hepatitis C antibody positive in blood Status: Acute (3) HIV (human immunodeficiency virus infection) Status: Chronic - Assessment and Plan (Free Text) Plan: Same meds Dialysis MWF AV access now Will need outpt HD arrangements
[2017-05-12] MEDS ORDERED: ceFAZolin IV 2 gm in Dextrose 1 GM/50 ML BAG IVPB ONE (11:38)
[2017-05-12] MEDS ORDERED: Bupivacaine 0.5% Inj(30mL) ONE (11:40)
[2017-05-12] MEDS ORDERED: Bupivacaine HCl 0.25% PF (10 ml) Inj ONE (11:40)
[2017-05-12] MEDS ORDERED: Lidocaine 1% MPF (30 ml) Inj ONE (11:45)
--- NOTE | 2017-05-12 11:51 | CP.PCM.PN ---
Subjective - Date & Time of Evaluation Date of Evaluation: 05/12/17 Time of Evaluation: 09:45 - Subjective Subjective: PGY2 Medicine Note - Dr. Dejesus's service: Patient seen and examined at bedside this AM. Patient has no complaints. Patient going for AV fistula. Patient says he wants to go home before the weekend. Objective - Vital Signs/Intake and Output Vital Signs (last 24 hours): Temp Pulse Resp BP Pulse Ox 97.5 F L 63 20 109/74 97 05/12/17 08:00 05/12/17 08:00 05/12/17 08:00 05/12/17 08:00 05/12/17 08:00 Intake and Output: 05/12/17 05/12/17 06:59 18:59 Intake Total 350 Balance 350 - Medications Medications: Current Medications Albuterol/Ipratropium (Duoneb 3 Mg/0.5 Mg (3 Ml) Ud) 3 ml INH RQ6 [facility] Last Admin: 05/12/17 07:17 Dose: 3 ml Alprazolam (Xanax) 0.5 mg PO TID [facility] Last Admin: 05/12/17 10:14 Dose: 0.5 mg Calcitriol (Rocaltrol) 0.5 mcg PO DAILY [facility] Last Admin: 05/12/17 10:14 Dose: 0.5 mcg Calcium Acetate (Phoslo) 667 mg PO TID [facility] Last Admin: 05/12/17 10:14 Dose: 667 mg Darunavir (Prezista) 800 mg PO DAILY [facility] Last Admin: 05/12/17 10:14 Dose: 800 mg Docusate Sodium (Colace) 100 mg PO DAILY [facility] Last Admin: 05/12/17 10:14 Dose: 100 mg Epoetin Miguel (Procrit) 10,000 unit IV MWF [facility] Last Admin: 05/11/17 18:07 Dose: 10,000 unit Famotidine (Pepcid) 20 mg PO DAILY [facility] Last Admin: 05/12/17 10:14 Dose: 20 mg Heparin Sodium (Porcine) (Heparin) 5,000 units SC Q12 [facility] Heparin Sodium (Porcine) (Heparin) 3,700 units IVP MWF [facility] Last Admin: 05/11/17 17:56 Dose: 3,700 units Insulin Aspart (Novolog) 0 unit SC ACHS [facility] PRN Reason: Protocol Last Admin: 05/12/17 07:58 Dose: Not Given Insulin Glargine (Lantus) 10 unit SC HS [facility] Last Admin: 05/11/17 22:06 Dose: Not Given Raltegravir (Isentress) 400 mg PO BID [facility] Last Admin: 05/12/17 10:14 Dose: 400 mg Ritonavir (Norvir) 100 mg PO BIDBS [facility] Last Admin: 05/12/17 08:30 Dose: Not Given - Labs Labs: 05/12/17 08:20 05/12/17 08:20 PT 10.5 SECONDS (9.7-12.2) 05/05/17 18:35 INR 0.9 05/05/17 18:35 APTT 30 SECONDS (21-34) 05/05/17 18:35 - Constitutional Appears: Non-toxic, No Acute Distress - Head Exam Head Exam: NORMAL INSPECTION - Eye Exam Eye Exam: EOMI - ENT Exam ENT Exam: Mucous Membranes Moist - Respiratory Exam Respiratory Exam: Clear to Ausculation Bilateral, NORMAL BREATHING PATTERN. absent: Rhonchi, Wheezes - Cardiovascular Exam Cardiovascular Exam: REGULAR RHYTHM, +S1, +S2. absent: Gallop, Rubs - GI/Abdominal Exam GI & Abdominal Exam: Soft, Normal Bowel Sounds. absent: Tenderness - Extremities Exam Extremities Exam: absent: Pedal Edema - Neurological Exam Neurological Exam: Alert, Oriented x3 - Psychiatric Exam Psychiatric exam: Normal Affect, Normal Mood - Skin Skin Exam: Normal Color, Warm Assessment and Plan - Assessment and Plan (Free Text) Assessment: ESRD 05/12: patient NPO today for AV fistula 05/11: Dr. Avila wrote that patient can get AV fistula. OR on 05/12 Hemodialysis ordered MWF by Dr. Siddiqui 05/10: Patient for AV Fistula surgery delayed, rescheduled for 05/12. 05/09: Patient needs long-term dialysis arrangement for discharge. GFR 6 NPO for sean catheter placement today with Dr Gallegos Surgery consulted Dr Gallegos Coal Tram Driver Dr Siddiqui consulted Hepatitis C 05/12: HCV viral load not detected, a few more tests pending 05/10: Spoke with Dr. Maldonado, we will get viral loads and genotypes. CHF with AICD BNP 2220 CXR 05/06/17 - s/p insertion right IJ permacath, no pneumonia, minor bibasilar atelectasis Anemia Hgb 8.9 Monitor F/U stool occult blood HTN well controlled without medications HIV triple therapy started 05/09/17 viral load 05/07/[address] Maldonado consulted- help appreciated F/U HIV antibodies DM ISS Lantus 10u SC HS Accuchecks Prophylactic measures Heparin Pepcid SCDs Management per Dr. Dejesus
[2017-05-12] MEDS ORDERED: Dexmedetomidine Hydrochloride 100 mcg/ml (2ML) ONE (11:55)
[2017-05-12] MEDS ORDERED: Etomidate 20 mg/10ml Inj IV ONE ×2 (11:55→14:16)
[2017-05-12] MEDS ORDERED: Sodium Chloride 0.9% 500 ML IV ONE (12:00)
[2017-05-12] MEDS ORDERED: Midazolam 2 MG/2 ML VIAL ONE ×4 (12:17→13:22)
--- NOTE | 2017-05-12 13:05 | PCM.ANESB1 ---
Interscalene Block - Brachial Plexus Date of Procedure: 05/12/17 Anesthesiologist: Samantha Pre-Procedure Diagnosis: ESRD Post-Procedure Diagnosis: ESRD Procedure Performed: Interscalene Block of Brachial Plexus Left - Procedure Interscalene Block of Brachial Plexus: This procedure was explained to the patient that it is for post-operative pain management. Consent was obtained after a thorough discussion with the patient regarding the benefits and possible complications of local anesthetic block of the Brachial Plexus at the supraclavicular area. The patient was brought to the Operating Room and standard monitors were applied. Time out was held with the circulating nurse to confirm the correct surgery and appropriate block. After applying Oxygen by nasal cannula and administering IV Sedation, the patient's head was gently rotated away from the operative shoulder and the anterior scalene groove was carefully palpated. The ultrasound transducer was then applied to the skin in the transverse plane and the brachial plexus was visualized lateral to the carotid artery. After identification,the anterior lateral portion of the neck was prepped with Betadine solution three times and Lidocaine 1% was injected subcutaneously for topical analgesia. At this point, a # 22 gauge Stimuplex 4 inches insulated needle was inserted into the interscalene groove and directed in a caudal and midline direction. The needle was inserted lateral to the ultrasound transducer in-plane towards the brachial plexus in a [id number] direction. Needle advancement was performed carefully under direct ultrasound visualization. Nerve stimulator was used and twitched of the affected extremity including the hand brachialis muscles, biceps and the deltoid was obtained at a current of 1 MA. After repeated negative aspiration,20 cc of 1% lidocainewere injected and this was followed with 20 cc of 0.5 % bupivicaine. Under ultrasound guidance the local anesthetics were observed surrounding the roots of the brachial plexus. The needle was removed intact and sterile dressing was applied. The patient had stable vital signs, was conscious and in no apparent distress. The patient tolerated the supraclavicular block of the bracheal plexus well with stable vital signs and was prepared for subsequent surgery.
[2017-05-12] MEDS ORDERED: Lidocaine 2% Inj (20ml) ONE (13:17)
[2017-05-12] MEDS ORDERED: HYDROmorphone 0.5 mg/0.5 ml ISec IVP PRN (14:20)
--- NOTE | 2017-05-12 14:48 | PCM.SURG1 ---
Surgeon's Initial Post Op Note - Surgeon's Notes Surgeon: Rosy Oxide Furnace Tender: Oziel PGY2, Jazmyn PGY1 Type of Anesthesia: Other (scalene block) Pre-Operative Diagnosis: ESRD Operative Findings: normal LUE vasculature Post-Operative Diagnosis: same Operation Performed: LUE brachiobrachial AVF Specimen/Specimens Removed: none Estimated Blood Loss: EBL {In ML}: 50 Blood Products Given: N/A Drains Used: No Drains Post-Op Condition: Good Date of Surgery/Procedure: 05/12/17 Time of Surgery/Procedure: 14:48
[2017-05-12] MEDS ORDERED: Oxycodone/Acetaminophen 5/325 mg Tab PO PRN (14:49)
--- NOTE | 2017-05-12 19:16 | OP ---
PROCEDURE DATE: 05/12/2017 PREOPERATIVE DIAGNOSIS: Renal failure. POSTOPERATIVE DIAGNOSIS: Renal failure. PROCEDURE CARRIED OUT: Placement of brachio-brachial fistula, left elbow. INDICATIONS: The patient is a middle-aged man with renal insufficiency, poor ejection fraction, mult iple other problems, renal insufficiency, presently dialyzed by means of recently placed catheter. OPERATIVE FINDINGS: The basilic vein on the left side was partially thrombosed, the cephalic vein wa s not evident. The patient had a remote history of intravenous drug abuse. The only vein visible on the left side or on the right side of any adequate caliber was the brachial vein. Because of this, we carried out a brachio-brachial fistula with ligation of the distal portion of it. PROCEDURE: The patient was given an axillary block as well as local infiltration. The vein and susanna ry mobilized using loupe magnification and heparin anticoagulation, they were anastomosed. The dista l portion of the vein was then ligated so this became instead of a side to side, an end to end fistul a. The skin was then closed after completion of the anastomosis and obtaining hemostasis. Blood loss was less than 25 mL. OPERATION CARRIED OUT: Brachio-brachial fistula left elbow. Most likely this will require elevation in the future. Bernabe Gallegos Jr., MD cc:Des Siddiqui MD 56 TT: 05/12/2017 19:16:00 jn
[2017-05-12] MEDS: (Lantus) Insulin Glargine, Recombinant SC SCH (21:35)
[2017-05-13] MEDS: Albuterol-Ipratrop 3 mg / 0.5 (3 ml) UD INH SCH ×3 (02:22→14:45)
--- NOTE | 2017-05-13 08:16 | CP.PCM.PN ---
Subjective - Date & Time of Evaluation Date of Evaluation: 05/13/17 Time of Evaluation: 08:13 - Subjective Subjective: Vasc Sx: Dr Gallegos Pt S&E. MICHAEL. POD#1 left AVF. Pain well controlled. Denies hand pain, numbness, weakness. Objective - Vital Signs/Intake and Output Vital Signs (last 24 hours): Temp Pulse Resp BP Pulse Ox 97.8 F 57 L 20 164/91 H 99 05/13/17 08:00 05/13/17 08:00 05/13/17 08:00 05/13/17 08:00 05/13/17 08:00 Intake and Output: 05/13/17 05/13/17 06:59 18:59 Intake Total 200 Balance 200 - Medications Medications: Current Medications Albuterol/Ipratropium (Duoneb 3 Mg/0.5 Mg (3 Ml) Ud) 3 ml INH RQ6 [facility] Last Admin: 05/13/17 07:34 Dose: 3 ml Alprazolam (Xanax) 0.5 mg PO TID [facility] Last Admin: 05/12/17 17:52 Dose: 0.5 mg Calcitriol (Rocaltrol) 0.5 mcg PO DAILY [facility] Last Admin: 05/12/17 10:14 Dose: 0.5 mcg Calcium Acetate (Phoslo) 667 mg PO TID [facility] Last Admin: 05/12/17 17:52 Dose: 667 mg Darunavir (Prezista) 800 mg PO DAILY [facility] Last Admin: 05/12/17 10:14 Dose: 800 mg Docusate Sodium (Colace) 100 mg PO DAILY [facility] Last Admin: 05/12/17 10:14 Dose: 100 mg Epoetin Miguel (Procrit) 10,000 unit IV MWF [facility] Last Admin: 05/11/17 18:07 Dose: 10,000 unit Famotidine (Pepcid) 20 mg PO DAILY [facility] Last Admin: 05/12/17 10:14 Dose: 20 mg Heparin Sodium (Porcine) (Heparin) 5,000 units SC Q12 [facility] Heparin Sodium (Porcine) (Heparin) 3,700 units IVP MWF [facility] Last Admin: 05/11/17 17:56 Dose: 3,700 units Insulin Aspart (Novolog) 0 unit SC ACHS [facility] PRN Reason: Protocol Last Admin: 05/12/17 21:33 Dose: Not Given Insulin Glargine (Lantus) 10 unit SC HS [facility] Last Admin: 05/12/17 21:35 Dose: 10 units Oxycodone/Acetaminophen (Percocet 5/325 Mg Tab) 1 tab PO Q4H PRN PRN Reason: Pain, moderate (4-7) Stop: 05/15/17 14:50 Raltegravir (Isentress) 400 mg PO BID [facility] Last Admin: 05/12/17 17:52 Dose: 400 mg Ritonavir (Norvir) 100 mg PO BIDBS [facility] Last Admin: 05/13/17 06:40 Dose: 100 mg - Labs Labs: 05/12/17 08:20 05/12/17 08:20 PT 10.5 SECONDS (9.7-12.2) 05/05/17 18:35 INR 0.9 05/05/17 18:35 APTT 30 SECONDS (21-34) 05/05/17 18:35 - Constitutional Appears: Non-toxic, No Acute Distress - ENT Exam ENT Exam: Mucous Membranes Moist - Respiratory Exam Respiratory Exam: absent: Accessory Muscle Use, Respiratory Distress - Cardiovascular Exam Cardiovascular Exam: REGULAR RHYTHM. absent: Tachycardia - Extremities Exam Additional comments: left arm dressing c/d/i distal pulses intact strength intact good perfusion - Neurological Exam Neurological Exam: Alert, Awake, Oriented x3 - Psychiatric Exam Psychiatric exam: Normal Affect, Normal Mood - Skin Skin Exam: Normal Color, Warm Assessment and Plan - Assessment and Plan (Free Text) Plan: 56M with renal failure; s/p AVF Dressing c/d/i Cont to dialyze via permacath until AVF matures f/u in office in 1 week No further vasc intervention will d/w Dr Rosy Dunn, PGY2
[2017-05-13 08:53] LABS: BASO % 0.6 % (0.0-2.0); EOS # 0.1 K/uL (0.0-0.7); EOS % 2.4 % (0.0-4.0); LYMPH % 18.4 % (20.0-40.0); MEAN CELL VOLUME 100.3 fL (80.0-94.0); MEAN CORPUSCULAR HEMOGLOBIN 34.4 pg (27.0-31.0); MEAN CORPUSCULAR HGB CONC 34.3 g/dL (33.0-37.0); MONO # 0.5 K/uL (0.0-0.8); MONO % 8.9 % (0.0-10.0); RED CELL DISTRIBUTION WIDTH 13.4 % (11.5-14.5); WHITE BLOOD COUNT 5.6 K/uL (4.8-10.8)
[2017-05-13] MEDS: (Novolog) Insulin Aspart, Recombinant 100 u/ml 10 ml vial SC SCH ×2 (08:58→14:23)
[2017-05-13 09:59] LABS: ALB/GLOB RATIO 0.8 (1.0-2.1); BILIRUBIN,TOTAL 0.6 mg/dL (0.2-1.3); CALCIUM 8.5 mg/dl (8.6-10.4); TOTAL PROTEIN 6.3 g/dL (6.3-8.3)
--- NOTE | 2017-05-13 09:59 | CP.PCM.PN ---
Subjective - Date & Time of Evaluation Date of Evaluation: 05/13/17 Time of Evaluation: 07:50 - Subjective Subjective: PGY2 Medicine Note - Dr. Dejesus's service: Patient seen and examined at bedside this AM. Patient has no complaints. Patient says he wants to go home before the weekend. Objective - Vital Signs/Intake and Output Vital Signs (last 24 hours): Temp Pulse Resp BP Pulse Ox 97.8 F 57 L 20 164/91 H 99 05/13/17 08:00 05/13/17 08:00 05/13/17 08:00 05/13/17 08:00 05/13/17 08:00 Intake and Output: 05/13/17 05/13/17 06:59 18:59 Intake Total 200 Balance 200 - Medications Medications: Current Medications Albuterol/Ipratropium (Duoneb 3 Mg/0.5 Mg (3 Ml) Ud) 3 ml INH RQ6 [facility] Last Admin: 05/13/17 07:34 Dose: 3 ml Alprazolam (Xanax) 0.5 mg PO TID [facility] Last Admin: 05/12/17 17:52 Dose: 0.5 mg Calcitriol (Rocaltrol) 0.5 mcg PO DAILY [facility] Last Admin: 05/12/17 10:14 Dose: 0.5 mcg Calcium Acetate (Phoslo) 667 mg PO TID [facility] Last Admin: 05/12/17 17:52 Dose: 667 mg Darunavir (Prezista) 800 mg PO DAILY [facility] Last Admin: 05/12/17 10:14 Dose: 800 mg Docusate Sodium (Colace) 100 mg PO DAILY [facility] Last Admin: 05/12/17 10:14 Dose: 100 mg Epoetin Miguel (Procrit) 10,000 unit IV MWF [facility] Last Admin: 05/11/17 18:07 Dose: 10,000 unit Famotidine (Pepcid) 20 mg PO DAILY [facility] Last Admin: 05/12/17 10:14 Dose: 20 mg Heparin Sodium (Porcine) (Heparin) 5,000 units SC Q12 [facility] Heparin Sodium (Porcine) (Heparin) 3,700 units IVP MWF [facility] Last Admin: 05/11/17 17:56 Dose: 3,700 units Insulin Aspart (Novolog) 0 unit SC ACHS [facility] PRN Reason: Protocol Last Admin: 05/13/17 08:58 Dose: 1 unit Insulin Glargine (Lantus) 10 unit SC HS [facility] Last Admin: 05/12/17 21:35 Dose: 10 units Oxycodone/Acetaminophen (Percocet 5/325 Mg Tab) 1 tab PO Q4H PRN PRN Reason: Pain, moderate (4-7) Stop: 05/15/17 14:50 Raltegravir (Isentress) 400 mg PO BID [facility] Last Admin: 05/12/17 17:52 Dose: 400 mg Ritonavir (Norvir) 100 mg PO BIDBS [facility] Last Admin: 05/13/17 06:40 Dose: 100 mg - Labs Labs: 05/13/17 08:36 05/12/17 08:20 PT 10.5 SECONDS (9.7-12.2) 05/05/17 18:35 INR 0.9 05/05/17 18:35 APTT 30 SECONDS (21-34) 05/05/17 18:35 - Constitutional Appears: Non-toxic, No Acute Distress - Head Exam Head Exam: NORMAL INSPECTION - Eye Exam Eye Exam: EOMI - ENT Exam ENT Exam: Mucous Membranes Moist - Respiratory Exam Respiratory Exam: Clear to Ausculation Bilateral, NORMAL BREATHING PATTERN. absent: Rales, Rhonchi, Wheezes - Cardiovascular Exam Cardiovascular Exam: REGULAR RHYTHM, +S1, +S2. absent: Gallop, Rubs, Murmur - GI/Abdominal Exam GI & Abdominal Exam: Soft, Normal Bowel Sounds. absent: Tenderness - Extremities Exam Extremities Exam: absent: Pedal Edema - Neurological Exam Neurological Exam: Alert, Awake, Oriented x3 - Psychiatric Exam Psychiatric exam: Normal Affect, Normal Mood - Skin Skin Exam: Normal Color, Warm Assessment and Plan - Assessment and Plan (Free Text) Assessment: ESRD 05/13: POD #1 AV fistula - need to wait for AV fistula maturement - will do dialysis through permacath until then 05/12: patient NPO today for AV fistula 05/11: Dr. Avila wrote that patient can get AV fistula. OR on 05/12 Hemodialysis ordered MWF by Dr. Siddiqui 05/10: Patient for AV Fistula surgery delayed, rescheduled for 05/12. 05/09: Patient needs laborer [facility] dialysis arrangement for discharge. GFR 6 NPO for sean catheter placement today with Dr Gallegos Surgery consulted Dr Gallegos Laundry Machine Operator Dr Siddiqui consulted Hepatitis C 05/12: HCV viral load not detected 05/10: Spoke with Dr. Maldonado, we will get viral loads and genotypes. CHF with AICD BNP 2220 CXR 05/06/17 - s/p insertion right IJ permacath, no pneumonia, minor bibasilar atelectasis Anemia Hgb 8.9 Monitor F/U stool occult blood HTN well controlled without medications HIV triple therapy started 05/09/17 viral load 05/07/[address] Maldonado consulted- help appreciated F/U HIV antibodies DM ISS Lantus 10u SC HS Accuchecks Prophylactic measures Heparin Pepcid SCDs Management per Dr. Dejesus
[2017-05-13 10:18] VITALS: O2SAT 96
[2017-05-13] MEDS: Epoetin Alfa 10,000 unit/ml Dialysis IV SCH (12:53)
[2017-05-13 13:58] VITALS: RESP 20; TEMP 97.3
--- NOTE | 2017-05-13 14:19 | CP.PCM.PN ---
Subjective - Date & Time of Evaluation Date of Evaluation: 05/13/17 Time of Evaluation: 14:16 - Subjective Subjective: s/p LUE fistula placement POD#1 . Unclear if bruitnis audible Feels better; dialysis well tolerated so far Labs acceptable; BP controlled No new n, v, SOB, f, chills, HAs Objective - Vital Signs/Intake and Output Vital Signs (last 24 hours): Temp Pulse Resp BP Pulse Ox 97.3 F L 69 20 150/84 96 05/13/17 13:56 05/13/17 13:56 05/13/17 13:56 05/13/17 13:56 05/13/17 13:56 Intake and Output: 05/13/17 05/13/17 06:59 18:59 Intake Total 200 Balance 200 - Medications Medications: Current Medications Albuterol/Ipratropium (Duoneb 3 Mg/0.5 Mg (3 Ml) Ud) 3 ml INH RQ6 [facility] Last Admin: 05/13/17 07:34 Dose: 3 ml Alprazolam (Xanax) 0.5 mg PO TID [facility] Last Admin: 05/13/17 11:00 Dose: Not Given Calcitriol (Rocaltrol) 0.5 mcg PO DAILY [facility] Last Admin: 05/13/17 11:00 Dose: Not Given Calcium Acetate (Phoslo) 667 mg PO TID [facility] Last Admin: 05/13/17 11:00 Dose: Not Given Darunavir (Prezista) 800 mg PO DAILY [facility] Last Admin: 05/13/17 11:00 Dose: Not Given Docusate Sodium (Colace) 100 mg PO DAILY [facility] Last Admin: 05/13/17 11:00 Dose: Not Given Epoetin Miguel (Procrit) 10,000 unit IV MWF [facility] Last Admin: 05/13/17 12:53 Dose: 10,000 unit Famotidine (Pepcid) 20 mg PO DAILY [facility] Last Admin: 05/13/17 11:00 Dose: Not Given Heparin Sodium (Porcine) (Heparin) 5,000 units SC Q12 [facility] Heparin Sodium (Porcine) (Heparin) 3,700 units IVP MWF [facility] Last Admin: 05/13/17 12:52 Dose: 3,700 units Insulin Aspart (Novolog) 0 unit SC ACHS [facility] PRN Reason: Protocol Last Admin: 05/13/17 08:58 Dose: 1 unit Insulin Glargine (Lantus) 10 unit SC HS [facility] Last Admin: 05/12/17 21:35 Dose: 10 units Oxycodone/Acetaminophen (Percocet 5/325 Mg Tab) 1 tab PO Q4H PRN PRN Reason: Pain, moderate (4-7) Stop: 05/15/17 14:50 Raltegravir (Isentress) 400 mg PO BID [facility] Last Admin: 05/13/17 11:00 Dose: Not Given Ritonavir (Norvir) 100 mg PO BIDBS [facility] Last Admin: 05/13/17 06:40 Dose: 100 mg - Labs Labs: 05/13/17 08:36 05/13/17 08:36 PT 10.5 SECONDS (9.7-12.2) 05/05/17 18:35 INR 0.9 05/05/17 18:35 APTT 30 SECONDS (21-34) 05/05/17 18:35 - Constitutional Appears: No Acute Distress, Chronically Ill - Head Exam Head Exam: ATRAUMATIC, NORMAL INSPECTION - Eye Exam Eye Exam: EOMI, Normal appearance - Neck Exam Neck Exam: Normal Inspection. absent: Tenderness - Respiratory Exam Respiratory Exam: Clear to Ausculation Bilateral, NORMAL BREATHING PATTERN - Cardiovascular Exam Cardiovascular Exam: REGULAR RHYTHM, +S1 - GI/Abdominal Exam GI & Abdominal Exam: Soft. absent: Tenderness - Extremities Exam Extremities Exam: Normal Inspection. absent: Tenderness - Neurological Exam Neurological Exam: Alert, CN II-XII Intact - Skin Skin Exam: Dry, Warm Assessment and Plan (1) ESRD (end stage renal disease) Status: Acute (2) Hepatitis C antibody positive in blood Status: Acute (3) HIV (human immunodeficiency virus infection) Status: Chronic - Assessment and Plan (Free Text) Plan: For discharge soon Outpatient dialysis arrangements made Will f/u AV access patency as outpatient
[2017-05-13 14:52] VITALS: BP 130/79; PULSE 79
--- NOTE | 2017-05-13 17:57 | CP.PCM.PN ---
Subjective - Date & Time of Evaluation Date of Evaluation: 05/13/17 Time of Evaluation: 08:20 Objective - Vital Signs/Intake and Output Vital Signs (last 24 hours): Temp Pulse Resp BP Pulse Ox 97.3 F L 69 20 150/84 96 05/13/17 13:56 05/13/17 13:56 05/13/17 13:56 05/13/17 13:56 05/13/17 13:56 Intake and Output: 05/13/17 05/13/17 06:59 18:59 Intake Total 200 300 Balance 200 300 - Labs Labs: 05/13/17 08:36 05/13/17 08:36 PT 10.5 SECONDS (9.7-12.2) 05/05/17 18:35 INR 0.9 05/05/17 18:35 APTT 30 SECONDS (21-34) 05/05/17 18:35 Assessment and Plan (1) ESRD (end stage renal disease) Status: Acute (2) Coagulopathy Status: Acute
== END 2017-05-13 15:07 | disposition home or self-care (01) | DRG 264 ==
LOC: C.ER 17:18 → C.9E 19:29 → C.5T 20:10
PROVIDERS: ADMIT Internal Medicine Pulmonary Disease; ATTEND Internal Medicine Pulmonary Disease
PROC: 02HV33Z Insertion of Infusion Device into Superior Vena Cava, Percutaneous Approach (ICD-10-PCS; principal; 2017-05-06 11:00)
PROC: 5A1D60Z (ICD-10-PCS; 2017-05-07)
PROC: 03180ZD Bypass Left Brachial Artery to Upper Arm Vein, Open Approach (ICD-10-PCS; 2017-05-12)
DX: I13.2 Hypertensive heart and chronic kidney disease with heart failure and with stage 5 chronic kidney disease, or end stage renal disease (principal); N17.9 Acute kidney failure, unspecified; D68.9 Coagulation defect, unspecified; I42.9 Cardiomyopathy, unspecified; N18.6 End stage renal disease; E11.21 Type 2 diabetes mellitus with diabetic nephropathy; D64.9 Anemia, unspecified; E11.22 Type 2 diabetes mellitus with diabetic chronic kidney disease; I50.9 Heart failure, unspecified; Z95.810 Presence of automatic (implantable) cardiac defibrillator; I25.2 Old myocardial infarction; F17.210 Nicotine dependence, cigarettes, uncomplicated; Z79.4 Long term (current) use of insulin; I25.10 Atherosclerotic heart disease of native coronary artery without angina pectoris; Z99.2 Dependence on renal dialysis; G89.18 Other acute postprocedural pain; B19.20 Unspecified viral hepatitis C without hepatic coma; Z21 Asymptomatic human immunodeficiency virus [HIV] infection status

== ENCOUNTER 2018-03-13 16:37 | Inpatient (IN) | payer OTHER ==
[2018-03-13 16:38] VITALS: BMI 28.4
[2018-03-13] MEDS ORDERED: Aspirin 325 mg EC Tablets PO STA (17:12)
[2018-03-13] MEDS ORDERED: Aspirin 325 mg EC Tablets PO ONE (17:19)
--- NOTE | 2018-03-13 18:08 | C.PDOC ---
History Of Present Illness 57-year-old male, PMHx includes [place] s/p 3 stents, HIV, NIDDM, Hypertension, ESRD (on dialysis , , Tue), presents to the emergency department with complaints of chest pain. Patient states he fell after dialysis a few days ago, sustaining an injury to his chest. pain is persistent in nature, non-radiating and worsened with movement. Patient notes associated shortness of breath. He denies nausea/vomiting, abdominal pain, back pain, dizziness, leg swelling or any other associated symptoms. No other complaints at this time. Time Seen by Provider: 03/13/18 16:52 Chief Complaint (Nursing): Shortness Of Breath History Per: Patient History/Exam Limitations: no limitations Onset/Duration Of Symptoms: Days Current Symptoms Are (Timing): Still Present Quality: Sharp Past Medical History Reviewed: Historical Data, Nursing Documentation, Vital Signs Vital Signs: Last Vital Signs Temp 98.2 F 03/13/18 16:59 Pulse 67 03/13/18 18:55 Resp 21 03/13/18 18:55 BP 139/91 H 03/13/18 18:55 Pulse Ox 100 03/13/18 18:59 - Medical History PMH: CHF, HIV, HTN - [facility] Procedures ASSIST WITH CARDIAC OUTPUT USING BALLOON PUMP, CONTINUOUS (12/29/16) BYPASS LEFT BRACHIAL ARTERY TO UPPER ARM VEIN, OPEN APPROACH (05/05/17) DILATION OF 3 COR ART WITH 3 DRUG-ELUT, PERC APPROACH (12/29/16) INSERTION OF ENDOTRACHEAL AIRWAY INTO TRACHEA, VIA OPENING (12/29/16) INSERTION OF INFUSION DEV INTO SUP VENA CAVA, PERC APPROACH (05/05/17) MEASURE OF CARDIAC SAMPL & PRESSURE, L HEART, PERC APPROACH (12/29/16) MEASUREMENT OF CARDIAC DEFIBRILLATOR, EXTERNAL APPROACH (12/29/16) PERFORMANCE OF URINARY FILTRATION, MULTIPLE (05/05/17) PLAIN RADIOGRAPHY OF LEFT HEART USING OTHER CONTRAST (12/29/16) PLAIN RADIOGRAPHY OF MULT COR ART USING OTH CONTRAST (12/29/16) RESPIRATORY VENTILATION, 24-96 CONSECUTIVE HOURS (12/29/16) Family History: States: No Known Family Hx - Social History Hx Tobacco Use: Yes Hx Alcohol Use: No Hx Substance Use: No Review Of Systems Constitutional: Negative for: Fever, Chills Cardiovascular: Positive for: Chest Pain Respiratory: Positive for: Shortness of Breath. Negative for: Cough Gastrointestinal: Negative for: Nausea, Vomiting Musculoskeletal: Negative for: Neck Pain, Back Pain, Leg Pain Neurological: Negative for: Weakness, Numbness, Headache, Dizziness Physical Exam - Physical Exam Appears: Non-toxic, No Acute Distress Skin: Normal Color, Warm, Dry, No Rash Head: Atraumatic, Normacephalic Eye(s): bilateral: Normal Inspection, PERRL, EOMI Nose: Normal Oral Mucosa: Moist Lips: Normal Appearing Neck: Normal ROM, Supple Chest: Symmetrical, Tenderness (left sided chest wall) Cardiovascular: Rhythm Regular, No Friction Rub, No Murmur Respiratory: Decreased Breath Sounds, No Accessory Muscle Use, Rhonchi, Wheezing Gastrointestinal/Abdominal: Soft, No Tenderness Back: Normal Inspection, No CVA Tenderness Extremity: Normal ROM, No Deformity, No Swelling Neurological/Psych: Oriented x3, Normal Speech, Normal Motor Gait: Steady ED Course And Treatment - Laboratory Results Result Diagrams: 03/13/18 17:57 03/13/18 17:57 ECG: Interpreted By Me, Viewed By Ca ECG Rhythm: Sinus Rhythm, PVC (occasional) ECG Interpretation: No Acute Changes Rate From EC O2 Sat by Pulse Oximetry: 100 (RA) Pulse Ox Interpretation: Normal - Radiology CXR: Interpreted by Me CXR Interpretation: Yes: Infiltrates (RML infiltrate). No: Mediastinum Critical Care Time - Critical Care Note Total Time (in mins): 35 Documented critical care: time excludes all time spent performing seperately billable procedures. Medical Decision Making Medical Decision Making: The patient was placed on 2L NC and O2 sat increased to 96%. The patient developed wheezing. Duoneb x3 ordered. Patient placed on electronic device monitor. Differential: Pneumonia, COPD, CAD/ACS, chest pain. The patient has not skipped dialysis, to be done tomorrow. The case was discussed with Dr. Curtis (internal medicine) traci who agrees to admit the patient for pneumonia. Blood cultures ordered. Zithromax and Rocephin. Disposition - Disposition Disposition: HOSPITALIZED Disposition Time: 18:59 Condition: FAIR Forms: [facility] (Bulgarian) - Clinical Impression Clinical Impression: Chest pain, Pneumonia - Scribe Statement The provider has reviewed the documentation as recorded by the Scribe (Aimee Paez) All medical record entries made by the Scribe were at my direction and personally dictated by me. I have reviewed the chart and agree that the record accurately reflects my personal performance of the history, physical exam, medical decision making, and the department course for this patient. I have also personally directed, reviewed, and agree with the discharge instructions and disposition.
[2018-03-13 18:12] LABS: ALB/GLOB RATIO 0.9 (1.0-2.1); ALBUMIN 4.2 g/dL (3.5-5.0); BASO # 0.1 K/uL (0.0-0.2); CALCIUM 9.8 mg/dl (8.6-10.4); EOS # 0.3 K/uL (0.0-0.7); EOS % 3.7 % (0.0-4.0); HEMOGLOBIN 12.1 g/dL (12.0-18.0); LYMPH # 1.7 K/uL (1.0-4.3); LYMPH % 23.2 % (20.0-40.0); MEAN CELL VOLUME 96.1 fL (80.0-94.0); MEAN CORPUSCULAR HEMOGLOBIN 32.1 pg (27.0-31.0); MEAN CORPUSCULAR HGB CONC 33.3 g/dL (33.0-37.0); MEAN PLATELET VOLUME 9.4 fL (7.2-11.7); MONO # 0.5 K/uL (0.0-0.8); NEUT # 4.8 K/uL (1.8-7.0); NEUT % 65.1 % (50.0-75.0); RBC 3.77 Mil/uL (4.40-5.90); WHITE BLOOD COUNT 7.4 K/uL (4.8-10.8)
[2018-03-13 18:23] LABS: TROPONIN I 0.029 ng/mL (0.00-0.120)
[2018-03-13] MEDS ORDERED: cefTRIAXone IV 1 gm in Dextros 50 ML IV ONE (18:44)
[2018-03-13] MEDS ORDERED: Azithromycin 500mg/250ML NS 500 MG/250 ML BAG IV SCH (18:45)
[2018-03-13] MEDS ORDERED: Albuterol-Ipratrop 3 mg / 0.5 (3 ml) UD ONE (18:50)
--- NOTE | 2018-03-13 18:56 | RAD ---
PROCEDURE: CHEST RADIOGRAPH, 1 VIEW HISTORY: chest pain COMPARISON: 07/25/2017 FINDINGS: LUNGS: Clear. PLEURA: No pneumothorax or pleural fluid seen. CARDIOVASCULAR: Cardiomegaly. No evidence of acute, significant cardiovascular disease. Position/ configuration of pacemaker Satisfactory. OSSEOUS STRUCTURES: No significant abnormalities. VISUALIZED UPPER ABDOMEN: Normal. OTHER FINDINGS: None. IMPRESSION: No active disease. No acute/significant interval changes.
[2018-03-13] MEDS ORDERED: Azithromycin 500mg/250ML NS 500 MG/250 ML BAG IVPB ONE (19:21)
[2018-03-13] MEDS ORDERED: cefTRIAXone IV 1 gm in Dextros 50 ML IVPB ONE (19:21)
[2018-03-13] MEDS: Albuterol-Ipratrop 3 mg / 0.5 (3 ml) UD IH SCH ×3 (19:30→19:59)
--- NOTE | 2018-03-13 20:19 | CP.PCM.HP ---
Past Patient History - Infectious Disease Hx of Infectious Diseases: None - Past Medical History & Family History Past Medical History?: Yes - Past Social History Smoking Status: Heavy Smoker > 10 Cigarettes Daily - CARDIAC Hx Congestive Heart Failure: Yes Hx Hypertension: Yes - RENAL Hx Dialysis: Yes Type of Dialysis Access: Right AVF Date of Last Dialysis Treatment: 03/11/18 - ENDOCRINE/METABOLIC Hx Diabetes Mellitus Type 2: Yes - HEMATOLOGICAL/ONCOLOGICAL Hx Human Immunodeficiency Virus (HIV): Yes - MUSCULOSKELETAL/RHEUMATOLOGICAL Hx Falls: Yes (multiple stage healing laceration) - PSYCHIATRIC Hx Substance Use: No - SURGICAL HISTORY Hx Surgeries: Yes Other/Comment: AICD placement, Right AVF, Colectomy - ANESTHESIA Hx Anesthesia: Yes Hx Anesthesia Reactions: No Hx Malignant Hyperthermia: No Meds Allergies/Adverse Reactions: Allergies Allergy/AdvReac Type Severity Reaction Status Date / Time No Known Allergies Allergy Verified 07/13/17 11:46 Results - Vital Signs Recent Vital Signs: Last Vital Signs Temp 98.1 F 03/13/18 19:55 Pulse 88 03/13/18 19:55 Resp 20 03/13/18 19:55 BP 149/89 03/13/18 19:55 Pulse Ox 100 03/13/18 19:55 - Labs Result Diagrams: 03/13/18 17:57 03/13/18 17:57 Labs: Laboratory Results - last 24 hr 03/13/18 03/13/18 03/13/18 17:57 17:57 19:28 WBC 7.4 RBC 3.77 L Hgb 12.1 Hct 36.3 MCV 96.1 H MCH 32.1 H MCHC 33.3 RDW 16.0 H Plt Count 177 MPV 9.4 Neut % (Auto) 65.1 Lymph % (Auto) 23.2 [place] % (Auto) 7.0 Eos % (Auto) 3.7 Baso % (Auto) 1.0 Neut # (Auto) 4.8 Lymph # (Auto) 1.7 [place] # (Auto) 0.5 Eos # (Auto) 0.3 Baso # (Auto) 0.1 Sodium 138 Potassium 4.1 Chloride 97 L Carbon Dioxide 24 Anion Gap 22 H BUN 32 H Creatinine 2.9 H Est GFR ( Amer) 27 Est GFR (Non-Af Amer) 23 POC Glucose (mg/dL) 87 Random Glucose 100 Calcium 9.8 Total Bilirubin 1.3 AST 57 ALT 49 Alkaline Phosphatase 66 Troponin I 0.0290 Total Protein 9.0 H Albumin 4.2 Globulin 4.8 H Albumin/Globulin Ratio 0.9 L
[2018-03-13] MEDS ORDERED: Albuterol-Ipratrop 3 mg / 0.5 (3 ml) UD INH STA (22:19)
[2018-03-14] MEDS: Albuterol-Ipratrop 3 mg / 0.5 (3 ml) UD INH SCH ×4 (01:04→20:40)
[2018-03-14] MEDS ORDERED: Fluticasone-Salmeterol 100-50mcg Diskus INH SCH (08:00)
[2018-03-14] MEDS ORDERED: Venlafaxine 75 mg ER Cap PO SCH (10:00)
[2018-03-14] MEDS: Metoprolol Succinate 50 mg XL Tab PO SCH ×3 (11:08→19:09)
--- NOTE | 2018-03-14 11:12 | CP.PCM.CON ---
History of Present Illness - History of Present Illness History of Present Illness: 57-year-old male, PMHx includes [place] s/p 3 stents, HIV, NIDDM, Hypertension, ESRD (on dialysis , , Tue), presents to the emergency department with complaints of chest pain. Patient states he fell after dialysis a few days ago, sustaining an injury to his chest. pain is persistent in nature, non-radiating and worsened with movement. Patient notes associated shortness of breath. He denies nausea/vomiting, abdominal pain, back pain, dizziness, leg swelling or any other associated symptoms. No other complaints at this time. - Medical History PMH: CHF, HIV, HTN - [facility] Procedures ASSIST WITH CARDIAC OUTPUT USING BALLOON PUMP, CONTINUOUS (12/29/16) BYPASS LEFT BRACHIAL ARTERY TO UPPER ARM VEIN, OPEN APPROACH (05/05/17) DILATION OF 3 COR ART WITH 3 DRUG-ELUT, PERC APPROACH (12/29/16) INSERTION OF ENDOTRACHEAL AIRWAY INTO TRACHEA, VIA OPENING (12/29/16) INSERTION OF INFUSION DEV INTO SUP VENA CAVA, PERC APPROACH (05/05/17) MEASURE OF CARDIAC SAMPL & PRESSURE, L HEART, PERC APPROACH (12/29/16) MEASUREMENT OF CARDIAC DEFIBRILLATOR, EXTERNAL APPROACH (12/29/16) PERFORMANCE OF URINARY FILTRATION, MULTIPLE (05/05/17) PLAIN RADIOGRAPHY OF LEFT HEART USING OTHER CONTRAST (12/29/16) PLAIN RADIOGRAPHY OF MULT COR ART USING OTH CONTRAST (12/29/16) RESPIRATORY VENTILATION, 24-96 CONSECUTIVE HOURS (12/29/16) Family History: States: No Known Family Hx - Social History Hx Tobacco Use: Yes Hx Alcohol Use: No Hx Substance Use: No Review Of Systems Constitutional: Negative for: Fever, Chills Cardiovascular: Positive for: Chest Pain Respiratory: Positive for: Shortness of Breath. Negative for: Cough Gastrointestinal: Negative for: Nausea, Vomiting Musculoskeletal: Negative for: Neck Pain, Back Pain, Leg Pain Neurological: Negative for: Weakness, Numbness, Headache, Dizziness Past Patient History - Infectious Disease Hx of Infectious Diseases: None - Past Medical History & Family History Past Medical History?: Yes - Past Social History Smoking Status: Current Some Days Smoker - CARDIAC Hx Congestive Heart Failure: Yes Hx Hypertension: Yes - RENAL Hx Dialysis: Yes Type of Dialysis Access: Right AVF Date of Last Dialysis Treatment: 03/11/18 - ENDOCRINE/METABOLIC Hx Diabetes Mellitus Type 2: Yes - HEMATOLOGICAL/ONCOLOGICAL Hx Human Immunodeficiency Virus (HIV): Yes - MUSCULOSKELETAL/RHEUMATOLOGICAL Hx Falls: Yes - PSYCHIATRIC Hx Substance Use: No - SURGICAL HISTORY Hx Surgeries: Yes Other/Comment: AICD placement, Right AVF, Colectomy - ANESTHESIA Hx Anesthesia: Yes Hx Anesthesia Reactions: No Hx Malignant Hyperthermia: No Meds Allergies/Adverse Reactions: Allergies Allergy/AdvReac Type Severity Reaction Status Date / Time No Known Allergies Allergy Verified 07/13/17 11:46 - Medications Medications: Current Medications Albuterol/Ipratropium (Duoneb 3 Mg/0.5 Mg (3 Ml) Ud) 3 ml INH RQ6 [facility] Last Admin: 03/14/18 07:38 Dose: 3 ml Alprazolam (Xanax) 2 mg PO TID [facility] Aspirin (Aspirin) 325 mg PO DAILY [facility] Clopidogrel Bisulfate (Plavix) 75 mg PO DAILY [facility] Darunavir (Prezista) 800 mg PO DAILY [facility] PRN Reason: Protocol Heparin Sodium (Porcine) (Heparin) 5,000 units SC Q12 [facility] Azithromycin (Zithromax 500mg In Ns Addvantage) 500 mg in 250 mls @ 166.667 mls /hr IV STAT [facility] PRN Reason: Protocol Last Admin: 03/13/18 21:38 Dose: 166.667 mls/hr Ceftriaxone Sodium 1 gm/ (Sodium Chloride) 100 mls @ 100 mls/hr IVPB DAILY@ 1930 [facility] PRN Reason: Protocol Azithromycin (Zithromax 500mg In Ns Addvantage) 500 mg in 250 mls @ 167 mls/hr IVPB Q24H [facility] PRN Reason: Protocol Stop: 03/23/18 20:31 Metoprolol Succinate (Toprol Xl) 50 mg PO TID [facility] Nateglinide (Starlix) 60 mg PO BIDAC [facility] Last Admin: 03/14/18 08:20 Dose: 60 mg Raltegravir (Isentress) 400 mg PO BID [facility] PRN Reason: Protocol Ritonavir (Norvir) 100 mg PO HS [facility] PRN Reason: Protocol Last Admin: 03/13/18 21:38 Dose: 100 mg Fluticasone/Salmeterol (Advair Diskus 100/50) 1 puff INH RQ12 [facility] Last Admin: 03/14/18 07:39 Dose: Not Given Sevelamer Carbonate (Renvela) [address] [facility] Last Admin: 03/14/18 08:20 Dose: 800 mg Tiotropium [place] (Spiriva) 18 mcg INH RQ24 [facility] Tiotropium [place] (Spiriva Inhalation Handihaler Device) 1 inhaler INH ONCE ONE Stop: 03/14/18 10:48 Venlafaxine HCl (Effexor Xr) [address] [facility] Physical Exam - Constitutional Appears: Chronically Ill - Head Exam Head Exam: ATRAUMATIC, NORMOCEPHALIC - Eye Exam Eye Exam: PERRL. absent: Scleral icterus - ENT Exam ENT Exam: Mucous Membranes Dry, Normal Oropharynx - Neck Exam Neck exam: Negative for: Lymphadenopathy - Respiratory Exam Respiratory Exam: Decreased Breath Sounds, Rhonchi - Cardiovascular Exam Cardiovascular Exam: REGULAR RHYTHM - GI/Abdominal Exam GI & Abdominal Exam: Diminished Bowel Sounds, Soft. absent: Tenderness - Rectal Exam Rectal Exam: Deferred - Exam Exam: NORMAL INSPECTION - Extremities Exam Extremities exam: Positive for: pedal pulses present. Negative for: calf tenderness, pedal edema, tenderness - Back Exam Back exam: absent: CVA tenderness (L), CVA tenderness (R) - Neurological Exam Neurological exam: Alert, CN II-XII Intact, Oriented x3, Reflexes Normal - Psychiatric Exam Psychiatric exam: Normal Mood - Skin Skin Exam: Dry, Intact Results - Vital Signs Recent Vital Signs: Last Vital Signs Temp 98.2 F 03/14/18 07:25 Pulse 78 03/14/18 07:32 Resp 18 03/14/18 07:25 BP 139/75 03/14/18 07:25 Pulse Ox 95 03/14/18 07:25 - Labs Result Diagrams: 03/13/18 17:57 03/13/18 17:57 Labs: Laboratory Results - last 24 hr 03/13/18 03/13/18 03/13/18 17:57 17:57 19:28 WBC 7.4 RBC 3.77 L Hgb 12.1 Hct 36.3 MCV 96.1 H MCH 32.1 H MCHC 33.3 RDW 16.0 H Plt Count 177 MPV 9.4 Neut % (Auto) 65.1 Lymph % (Auto) 23.2 [place] % (Auto) 7.0 Eos % (Auto) 3.7 Baso % (Auto) 1.0 Neut # (Auto) 4.8 Lymph # (Auto) 1.7 [place] # (Auto) 0.5 Eos # (Auto) 0.3 Baso # (Auto) 0.1 Sodium 138 Potassium 4.1 Chloride 97 L Carbon Dioxide 24 Anion Gap 22 H BUN 32 H Creatinine 2.9 H Est GFR ( Amer) 27 Est GFR (Non-Af Amer) 23 POC Glucose (mg/dL) 87 Random Glucose 100 Calcium 9.8 Total Bilirubin 1.3 AST 57 ALT 49 Alkaline Phosphatase 66 Troponin I 0.0290 Total Protein 9.0 H Albumin 4.2 Globulin 4.8 H Albumin/Globulin Ratio 0.9 L 03/13/18 03/14/18 03/14/18 22:08 06:10 06:11 WBC RBC Hgb Hct MCV MCH MCHC RDW Plt Count MPV Neut % (Auto) Lymph % (Auto) [place] % (Auto) Eos % (Auto) Baso % (Auto) Neut # (Auto) Lymph # (Auto) [place] # (Auto) Eos # (Auto) Baso # (Auto) Sodium Potassium Chloride Carbon Dioxide Anion Gap BUN Creatinine Est GFR ( Amer) Est GFR (Non-Af Amer) POC Glucose (mg/dL) 133 H 66 60 L Random Glucose Calcium Total Bilirubin AST ALT Alkaline Phosphatase Troponin I Total Protein Albumin Globulin Albumin/Globulin Ratio 03/14/18 03/14/18 03/14/18 06:35 06:55 07:03 WBC RBC Hgb Hct MCV MCH MCHC RDW Plt Count MPV Neut % (Auto) Lymph % (Auto) [place] % (Auto) Eos % (Auto) Baso % (Auto) Neut # (Auto) Lymph # (Auto) [place] # (Auto) Eos # (Auto) Baso # (Auto) Sodium Potassium Chloride Carbon Dioxide Anion Gap BUN Creatinine Est GFR ( Amer) Est GFR (Non-Af Amer) POC Glucose (mg/dL) 64 L 69 Random Glucose Calcium Total Bilirubin AST ALT Alkaline Phosphatase Troponin I 0.0430 Total Protein Albumin Globulin Albumin/Globulin Ratio 03/14/18 11:04 WBC RBC Hgb Hct MCV MCH MCHC RDW Plt Count MPV Neut % (Auto) Lymph % (Auto) [place] % (Auto) Eos % (Auto) Baso % (Auto) Neut # (Auto) Lymph # (Auto) [place] # (Auto) Eos # (Auto) Baso # (Auto) Sodium Potassium Chloride Carbon Dioxide Anion Gap BUN Creatinine Est GFR ( Amer) Est GFR (Non-Af Amer) POC Glucose (mg/dL) 158 H Random Glucose Calcium Total Bilirubin AST ALT Alkaline Phosphatase Troponin I Total Protein Albumin Globulin Albumin/Globulin Ratio Assessment & Plan (1) Chest pain Status: Acute (2) Pneumonia Status: Acute - Assessment and Plan (Free Text) Assessment: cont iv rx await cultures
--- NOTE | 2018-03-14 12:09 | CARD ---
APPROVED REPORT EKG Measurement Heart [id number] MD [id number] <Conclusion> Sinus rhythm with occasional premature ventricular complexes Nonspecific intraventricular block Inferior infarct, age undetermined Abnormal ECG
--- NOTE | 2018-03-14 12:58 | CP.PCM.CON ---
History of Present Illness - History of Present Illness History of Present Illness: 57-year-old male, PMHx includes [place] s/p 3 stents, HIV, NIDDM, Hypertension, ESRD (on dialysis , , Tue), presents to the emergency department with complaints of shortness of breath and dry cough, admited to excessive fluid intake over weekend. Patient states he fell after dialysis a couple weeks ago, sustaining an injury to his chest. pain is persistent in nature, non-radiating and worsened with movement. Patient notes associated shortness of breath. He denies nausea/vomiting, abdominal pain, back pain, dizziness, leg swelling or any other associated symptoms. No other complaints at this time. Pt had a recent chest x ray and was informed about rt sided rib fracture, refused to get medical attention at that time. PMHx: esrd htn hiv diverticular dz cad s/p cardiac cath and stent last year aicd PSH: AICD, 3 cardiac stents, partial colectomy, permcath Meds: MAR reviewed NKDA Social: + Tobacco, no ETOH/Drugs, former + illicit drug use Fhx: non-contributory Review of Systems - Review of Systems All systems: reviewed and no additional remarkable complaints except (as per HPI ) Past Patient History - Infectious Disease Hx of Infectious Diseases: None - Past Medical History & Family History Past Medical History?: Yes - Past Social History Smoking Status: Current Some Days Smoker - CARDIAC Hx Congestive Heart Failure: Yes Hx Hypertension: Yes - RENAL Hx Dialysis: Yes Type of Dialysis Access: Right AVF Date of Last Dialysis Treatment: 03/11/18 - ENDOCRINE/METABOLIC Hx Diabetes Mellitus Type 2: Yes - HEMATOLOGICAL/ONCOLOGICAL Hx Human Immunodeficiency Virus (HIV): Yes - MUSCULOSKELETAL/RHEUMATOLOGICAL Hx Falls: Yes - PSYCHIATRIC Hx Substance Use: No - SURGICAL HISTORY Hx Surgeries: Yes Other/Comment: AICD placement, Right AVF, Colectomy - ANESTHESIA Hx Anesthesia: Yes Hx Anesthesia Reactions: No Hx Malignant Hyperthermia: No Meds Allergies/Adverse Reactions: Allergies Allergy/AdvReac Type Severity Reaction Status Date / Time No Known Allergies Allergy Verified 07/13/17 11:46 - Medications Medications: Current Medications Albuterol/Ipratropium (Duoneb 3 Mg/0.5 Mg (3 Ml) Ud) 3 ml INH RQ6 [facility] Last Admin: 03/14/18 07:38 Dose: 3 ml Alprazolam (Xanax) 2 mg PO TID [facility] Last Admin: 03/14/18 11:14 Dose: 2 mg Aspirin (Aspirin) 325 mg PO DAILY [facility] Last Admin: 03/14/18 11:08 Dose: 325 mg Clopidogrel Bisulfate (Plavix) 75 mg PO DAILY [facility] Last Admin: 03/14/18 11:08 Dose: 75 mg Darunavir (Prezista) 800 mg PO DAILY [facility] PRN Reason: Protocol Last Admin: 03/14/18 11:10 Dose: 800 mg Heparin Sodium (Porcine) (Heparin) 5,000 units SC Q12 [facility] Last Admin: 03/14/18 11:15 Dose: 5,000 units Azithromycin (Zithromax 500mg In Ns Addvantage) 500 mg in 250 mls @ 166.667 mls /hr IV STAT [facility] PRN Reason: Protocol Last Admin: 03/13/18 21:38 Dose: 166.667 mls/hr Ceftriaxone Sodium 1 gm/ (Sodium Chloride) 100 mls @ 100 mls/hr IVPB DAILY@ 1930 [facility] PRN Reason: Protocol Azithromycin (Zithromax 500mg In Ns Addvantage) 500 mg in 250 mls @ 167 mls/hr IVPB Q24H [facility] PRN Reason: Protocol Stop: 03/23/18 20:31 Metoprolol Succinate (Toprol Xl) 50 mg PO TID [facility] Last Admin: 03/14/18 11:08 Dose: 50 mg Nateglinide (Starlix) 60 mg PO BIDAC [facility] Last Admin: 03/14/18 08:20 Dose: 60 mg Raltegravir (Isentress) 400 mg PO BID [facility] PRN Reason: Protocol Last Admin: 03/14/18 11:09 Dose: 400 mg Ritonavir (Norvir) 100 mg PO HS [facility] PRN Reason: Protocol Last Admin: 03/13/18 21:38 Dose: 100 mg Fluticasone/Salmeterol (Advair Diskus 100/50) 1 puff INH RQ12 [facility] Last Admin: 03/14/18 07:39 Dose: Not Given Sevelamer Carbonate (Renvela) 800 mg PO TIDCC [facility] Last Admin: 03/14/18 12:45 Dose: 800 mg Tiotropium [place] (Spiriva) 18 mcg INH RQ24 [facility] Venlafaxine HCl (Effexor Xr) 75 mg PO DAILY [facility] Last Admin: 03/14/18 11:08 Dose: 75 mg Physical Exam - Constitutional Appears: Non-toxic, No Acute Distress - Head Exam Head Exam: NORMAL INSPECTION, NORMOCEPHALIC - Eye Exam Eye Exam: Normal appearance, PERRL - ENT Exam ENT Exam: Mucous Membranes Moist, Normal Exam - Neck Exam Neck exam: Positive for: Normal Inspection - Respiratory Exam Respiratory Exam: Clear to Auscultation Bilateral, NORMAL BREATHING PATTERN - Cardiovascular Exam Cardiovascular Exam: REGULAR RHYTHM, RRR - GI/Abdominal Exam GI & Abdominal Exam: Distended, Normal Bowel Sounds - Extremities Exam Extremities exam: Positive for: normal inspection (lue avf) - Neurological Exam Neurological exam: Alert, Oriented x3 - Psychiatric Exam Psychiatric exam: Normal Affect, Normal Mood - Skin Skin Exam: Normal Color, Warm Results - Vital Signs Recent Vital Signs: Last Vital Signs Temp 98.2 F 03/14/18 07:25 Pulse 78 03/14/18 07:32 Resp 18 03/14/18 07:25 BP 139/75 03/14/18 07:25 Pulse Ox 95 03/14/18 07:25 - Labs Result Diagrams: 03/13/18 17:57 03/13/18 17:57 Labs: Laboratory Results - last 24 hr 03/13/18 03/13/18 03/13/18 17:57 17:57 19:28 WBC 7.4 RBC 3.77 L Hgb 12.1 Hct 36.3 MCV 96.1 H MCH 32.1 H MCHC 33.3 RDW 16.0 H Plt Count 177 MPV 9.4 Neut % (Auto) 65.1 Lymph % (Auto) 23.2 [place] % (Auto) 7.0 Eos % (Auto) 3.7 Baso % (Auto) 1.0 Neut # (Auto) 4.8 Lymph # (Auto) 1.7 [place] # (Auto) 0.5 Eos # (Auto) 0.3 Baso # (Auto) 0.1 Sodium 138 Potassium 4.1 Chloride 97 L Carbon Dioxide 24 Anion Gap 22 H BUN 32 H Creatinine 2.9 H Est GFR ( Amer) 27 Est GFR (Non-Af Amer) 23 POC Glucose (mg/dL) 87 Random Glucose 100 Calcium 9.8 Total Bilirubin 1.3 AST 57 ALT 49 Alkaline Phosphatase 66 Troponin I 0.0290 Total Protein 9.0 H Albumin 4.2 Globulin 4.8 H Albumin/Globulin Ratio 0.9 L 03/13/18 03/14/18 03/14/18 22:08 06:10 06:11 WBC RBC Hgb Hct MCV MCH MCHC RDW Plt Count MPV Neut % (Auto) Lymph % (Auto) [place] % (Auto) Eos % (Auto) Baso % (Auto) Neut # (Auto) Lymph # (Auto) [place] # (Auto) Eos # (Auto) Baso # (Auto) Sodium Potassium Chloride Carbon Dioxide Anion Gap BUN Creatinine Est GFR ( Amer) Est GFR (Non-Af Amer) POC Glucose (mg/dL) 133 H 66 60 L Random Glucose Calcium Total Bilirubin AST ALT Alkaline Phosphatase Troponin I Total Protein Albumin Globulin Albumin/Globulin Ratio 03/14/18 03/14/18 03/14/18 06:35 06:55 07:03 WBC RBC Hgb Hct MCV MCH MCHC RDW Plt Count MPV Neut % (Auto) Lymph % (Auto) [place] % (Auto) Eos % (Auto) Baso % (Auto) Neut # (Auto) Lymph # (Auto) [place] # (Auto) Eos # (Auto) Baso # (Auto) Sodium Potassium Chloride Carbon Dioxide Anion Gap BUN Creatinine Est GFR ( Amer) Est GFR (Non-Af Amer) POC Glucose (mg/dL) 64 L 69 Random Glucose Calcium Total Bilirubin AST ALT Alkaline Phosphatase Troponin I 0.0430 Total Protein Albumin Globulin Albumin/Globulin Ratio 03/14/18 11:04 WBC RBC Hgb Hct MCV MCH MCHC RDW Plt Count MPV Neut % (Auto) Lymph % (Auto) [place] % (Auto) Eos % (Auto) Baso % (Auto) Neut # (Auto) Lymph # (Auto) [place] # (Auto) Eos # (Auto) Baso # (Auto) Sodium Potassium Chloride Carbon Dioxide Anion Gap BUN Creatinine Est GFR ( Amer) Est GFR (Non-Af Amer) POC Glucose (mg/dL) 158 H Random Glucose Calcium Total Bilirubin AST ALT Alkaline Phosphatase Troponin I Total Protein Albumin Globulin Albumin/Globulin Ratio Assessment & Plan (1) Chest pain Status: Acute (2) Anemia Status: Acute (3) CHF (congestive heart failure) Status: Acute (4) Diabetes mellitus Status: Acute (5) ESRD (end stage renal disease) Status: Acute (6) HIV (human immunodeficiency virus infection) Status: Chronic - Assessment and Plan (Free Text) Assessment: hd today, attempt uf 3L recommend fluid restriction recent fall and lower rt rb fracture cultures negative so far, no leukocytosis bp acceptable
[2018-03-14 14:30] LABS: BASO % 0.8 % (0.0-2.0); EOS # 0.2 K/uL (0.0-0.7); EOS % 3.8 % (0.0-4.0); LYMPH # 0.8 K/uL (1.0-4.3); LYMPH % 18.3 % (20.0-40.0); MEAN CELL VOLUME 94.5 fL (80.0-94.0); MEAN CORPUSCULAR HEMOGLOBIN 31.8 pg (27.0-31.0); MEAN CORPUSCULAR HGB CONC 33.6 g/dL (33.0-37.0); MEAN PLATELET VOLUME 9.5 fL (7.2-11.7); MONO # 0.3 K/uL (0.0-0.8); NEUT # 2.9 K/uL (1.8-7.0); NEUT % 70.1 % (50.0-75.0); NRBC % 0.1 % (0.0-2.0); RBC 3.11 Mil/uL (4.40-5.90); RED CELL DISTRIBUTION WIDTH 15.6 % (11.5-14.5); WHITE BLOOD COUNT 4.1 K/uL (4.8-10.8)
[2018-03-14 14:40] LABS: HEMOGLOBIN 9.9 g/dL (12.0-18.0)
--- NOTE | 2018-03-14 14:55 | CP.PCM.PN ---
<Naomi Castanon - Last Filed: 03/14/18 15:22> Subjective - Date & Time of Evaluation Date of Evaluation: 03/14/18 Time of Evaluation: 08:00 - Subjective Subjective: PGY2 medicine progress note for Dr. Richie Curtis: Patient was seen and examined at bedside this morning. 57-year-old male, PMHx includes LA s/p 3 stents, HIV, NIDDM, Hypertension, ESRD (on dialysis , , Tue), presents to the emergency department with complaints of shortness of breath and dry cough. He denied sick contact fever/chills. States that he went to dialysis on Tuesday but they did not removes as much fluid as normal. Patient states he fell after dialysis a couple weeks ago, sustaining an injury to his chest. Pt had a recent chest x ray and was informed about rt sided rib fracture, refused to get medical attention at that time.pain is persistent in nature, non-radiating and worsened with movement. Patient notes associated shortness of breath. He denies nausea/vomiting, abdominal pain, back pain, dizziness, leg swelling or any other associated symptoms. No other complaints at this time. Patient states he quit smoking but last cigarette was yesterday. Objective - Vital Signs/Intake and Output Vital Signs (last 24 hours): Temp Pulse Resp BP Pulse Ox 98.2 F 78 18 139/75 95 03/14/18 07:25 03/14/18 07:32 03/14/18 07:25 03/14/18 07:25 03/14/18 07:25 Intake and Output: 03/14/18 03/14/18 06:59 18:59 Intake Total 400 Output Total 400 Balance 0 - Medications Medications: Current Medications Albuterol/Ipratropium (Duoneb 3 Mg/0.5 Mg (3 Ml) Ud) 3 ml INH RQ6 [facility] Last Admin: 03/14/18 13:36 Dose: Not Given Alprazolam (Xanax) 2 mg PO TID [facility] Last Admin: 03/14/18 11:14 Dose: 2 mg Aspirin (Aspirin) 325 mg PO DAILY [facility] Last Admin: 03/14/18 11:08 Dose: 325 mg Clopidogrel Bisulfate (Plavix) 75 mg PO DAILY [facility] Last Admin: 03/14/18 11:08 Dose: 75 mg Darunavir (Prezista) 800 mg PO DAILY [facility] PRN Reason: Protocol Last Admin: 03/14/18 11:10 Dose: 800 mg Heparin Sodium (Porcine) (Heparin) 5,000 units SC Q12 [facility] Last Admin: 03/14/18 11:15 Dose: 5,000 units Ceftriaxone Sodium 1 gm/ (Sodium Chloride) 100 mls @ 100 mls/hr IVPB DAILY@ 1930 [facility] PRN Reason: Protocol Azithromycin (Zithromax 500mg In Ns Addvantage) 500 mg in 250 mls @ 167 mls/hr IVPB Q24H [facility] PRN Reason: Protocol Stop: 03/23/18 20:31 Metoprolol Succinate (Toprol Xl) 50 mg PO TID [facility] Last Admin: 03/14/18 11:08 Dose: 50 mg Nateglinide (Starlix) 60 mg PO BIDAC [facility] Last Admin: 03/14/18 08:20 Dose: 60 mg Raltegravir (Isentress) 400 mg PO BID [facility] PRN Reason: Protocol Last Admin: 03/14/18 11:09 Dose: 400 mg Ritonavir (Norvir) 100 mg PO HS [facility] PRN Reason: Protocol Last Admin: 03/13/18 21:38 Dose: 100 mg Fluticasone/Salmeterol (Advair Diskus 100/50) 1 puff INH RQ12 [facility] Last Admin: 03/14/18 07:39 Dose: Not Given Fluticasone/Salmeterol (Advair Diskus 250/50) 1 puff INH RQ12 [facility] Sevelamer Carbonate (Renvela) 800 mg PO TIDCC [facility] Last Admin: 03/14/18 12:45 Dose: 800 mg Tiotropium Bernice (Spiriva) 18 mcg INH RQ24 [facility] Venlafaxine HCl (Effexor Xr) 75 mg PO DAILY [facility] Last Admin: 03/14/18 11:08 Dose: 75 mg - Labs Labs: 03/14/18 14:24 03/13/18 17:57 - Constitutional Appears: Non-toxic, No Acute Distress - Head Exam Head Exam: ATRAUMATIC, NORMAL INSPECTION - Eye Exam Eye Exam: EOMI - ENT Exam ENT Exam: Mucous Membranes Moist - Respiratory Exam Respiratory Exam: Wheezes. absent: Accessory Muscle Use, Respiratory Distress - Cardiovascular Exam Cardiovascular Exam: REGULAR RHYTHM, +S1, +S2 - GI/Abdominal Exam GI & Abdominal Exam: Soft, Normal Bowel Sounds. absent: Distended, Guarding, Tenderness - Extremities Exam Extremities Exam: Normal Inspection - Back Exam Back Exam: NORMAL INSPECTION - Neurological Exam Neurological Exam: Alert, Awake, CN II-XII Intact, Oriented x3 - Psychiatric Exam Psychiatric exam: Normal Affect, Normal Mood - Skin Skin Exam: Dry, Normal Color Assessment and Plan - Assessment and Plan (Free Text) Assessment: Shortness of breath Albuterol Q6 [facility] Advair Spirivia Ceftriaxone and Azithromycin X asher - negative for active disease f/u ABG Dr. Donis consulted, help appreciated saturating well on NC f/u am labs ESRD Dr. Siddiqui consulted help appreciated On dialysis T//Sat HIV (human immunodeficiency virus infection) Patient is on HIV medication. Dr. Maldonado consulted - help appreciated Continue Raltegravir and Ritonavir Diabetes mellitus Accuchecks hypoglycemia protocol Starlix IIS Hx [place] ASA/plavix therapy trop negative x [address] Dr. Enriquez consulted, help appreciated Anxiety/Depression Xanax 2mg PO TID [facility] Efexor 75mg PO daily Prophylaxis Hep 5000u SC Q12 GI not indicated All management per Dr. Richie Curtis <Lynda Curtis S - Last Filed: 03/14/18 23:23> Objective - Vital Signs/Intake and Output Vital Signs (last 24 hours): Temp Pulse Resp BP Pulse Ox 98 F 82 18 132/89 96 03/14/18 18:30 03/14/18 18:30 03/14/18 18:30 03/14/18 18:30 03/14/18 18:30 - Medications Medications: Current Medications Albuterol/Ipratropium (Duoneb 3 Mg/0.5 Mg (3 Ml) Ud) 3 ml INH RQ6 [facility] Last Admin: 03/14/18 20:40 Dose: Not Given Alprazolam (Xanax) 2 mg PO TID [facility] Last Admin: 03/14/18 21:13 Dose: 2 mg Aspirin (Aspirin) 325 mg PO DAILY [facility] Last Admin: 03/14/18 11:08 Dose: 325 mg Clopidogrel Bisulfate (Plavix) 75 mg PO DAILY [facility] Last Admin: 03/14/18 11:08 Dose: 75 mg Darunavir (Prezista) 800 mg PO DAILY [facility] PRN Reason: Protocol Last Admin: 03/14/18 11:10 Dose: 800 mg Heparin Sodium (Porcine) (Heparin) 5,000 units SC Q12 [facility] Last Admin: 03/14/18 21:13 Dose: 5,000 units Ceftriaxone Sodium 1 gm/ (Sodium Chloride) 100 mls @ 100 mls/hr IVPB DAILY@ 1930 [facility] PRN Reason: Protocol Last Admin: 03/14/18 19:08 Dose: 100 mls/hr Azithromycin (Zithromax 500mg In Ns Addvantage) 500 mg in 250 mls @ 167 mls/hr IVPB Q24H [facility] PRN Reason: Protocol Stop: 03/23/18 20:31 Last Admin: 03/14/18 21:14 Dose: 167 mls/hr Insulin Human Regular (Novolin R) 0 unit SC ACHS [facility] PRN Reason: Protocol Last Admin: 03/14/18 21:13 Dose: Not Given Methylprednisolone (Solu-Medrol) 40 mg IVP Q8H [facility] Last Admin: 03/14/18 19:08 Dose: 40 mg Metoprolol Succinate (Toprol Xl) 50 mg PO TID [facility] Last Admin: 03/14/18 19:09 Dose: Not Given Nateglinide (Starlix) 60 mg PO BIDAC [facility] Last Admin: 03/14/18 19:00 Dose: Not Given Raltegravir (Isentress) 400 mg PO BID [facility] PRN Reason: Protocol Last Admin: 03/14/18 19:07 Dose: 400 mg Ritonavir (Norvir) 100 mg PO HS [facility] PRN Reason: Protocol Last Admin: 03/14/18 21:13 Dose: 100 mg Fluticasone/Salmeterol (Advair Diskus 250/50) 1 puff INH RQ12 [facility] Last Admin: 03/14/18 20:40 Dose: Not Given Sevelamer Carbonate (Renvela) 800 mg PO TIDCC [facility] Last Admin: 03/14/18 19:08 Dose: 800 mg Tiotropium Bernice (Spiriva) 18 mcg INH RQ24 [facility] Venlafaxine HCl (Effexor Xr) 75 mg PO DAILY [facility] Last Admin: 03/14/18 11:08 Dose: 75 mg - Labs Labs: 03/14/18 14:24 03/14/18 14:24 Attending/Attestation - Attestation I have personally seen and examined this patient.: Yes I have fully participated in the care of the patient.: Yes I have reviewed all pertinent clinical information, including history, physical exam and plan: Yes Notes (Text): 03/14/18 23:23 case seen and dArmaniw staff and resident, concurred with finding and management..
[2018-03-14 15:11] LABS: ALBUMIN 3.5 g/dL (3.5-5.0); CALCIUM 9.1 mg/dl (8.6-10.4)
[2018-03-14] MEDS: (Novolin R) Insulin Human Regular 100 units/ml vial SC SCH ×2 (16:58→21:13)
[2018-03-14] MEDS ORDERED: methylPREDNISolone 40 MG in Sodium Chloride 0.9% 100 ML IVPB SCH (17:00)
--- NOTE | 2018-03-14 17:11 | CP.PCM.PN ---
Subjective - Date & Time of Evaluation Date of Evaluation: 03/14/18 Time of Evaluation: 09:10 - Subjective Subjective: clinically same Objective - Vital Signs/Intake and Output Vital Signs (last 24 hours): Temp Pulse Resp BP Pulse Ox 97.4 F L 74 20 128/82 97 03/14/18 15:00 03/14/18 16:16 03/14/18 16:16 03/14/18 16:16 03/14/18 15:00 Intake and Output: 03/14/18 03/14/18 06:59 18:59 Intake Total 400 Output Total 400 Balance 0 - Medications Medications: Current Medications Albuterol/Ipratropium (Duoneb 3 Mg/0.5 Mg (3 Ml) Ud) 3 ml INH RQ6 [facility] Last Admin: 03/14/18 13:36 Dose: Not Given Alprazolam (Xanax) 2 mg PO TID [facility] Last Admin: 03/14/18 11:14 Dose: 2 mg Aspirin (Aspirin) 325 mg PO DAILY [facility] Last Admin: 03/14/18 11:08 Dose: 325 mg Clopidogrel Bisulfate (Plavix) 75 mg PO DAILY [facility] Last Admin: 03/14/18 11:08 Dose: 75 mg Darunavir (Prezista) 800 mg PO DAILY [facility] PRN Reason: Protocol Last Admin: 03/14/18 11:10 Dose: 800 mg Heparin Sodium (Porcine) (Heparin) 5,000 units SC Q12 [facility] Last Admin: 03/14/18 11:15 Dose: 5,000 units Ceftriaxone Sodium 1 gm/ (Sodium Chloride) 100 mls @ 100 mls/hr IVPB DAILY@ 1930 [facility] PRN Reason: Protocol Azithromycin (Zithromax 500mg In Ns Addvantage) 500 mg in 250 mls @ 167 mls/hr IVPB Q24H [facility] PRN Reason: Protocol Stop: 03/23/18 20:31 Methylprednisolone 40 mg/ (Sodium Chloride) 100 mls @ 200 mls/hr IVPB Q8 [facility] Insulin Human Regular (Novolin R) 0 unit SC ACHS [facility] PRN Reason: Protocol Last Admin: 03/14/18 16:58 Dose: Not Given Metoprolol Succinate (Toprol Xl) 50 mg PO TID [facility] Last Admin: 03/14/18 11:08 Dose: 50 mg Nateglinide (Starlix) 60 mg PO BIDAC [facility] Last Admin: 03/14/18 08:20 Dose: 60 mg Raltegravir (Isentress) 400 mg PO BID [facility] PRN Reason: Protocol Last Admin: 03/14/18 11:09 Dose: 400 mg Ritonavir (Norvir) 100 mg PO HS [facility] PRN Reason: Protocol Last Admin: 03/13/18 21:38 Dose: 100 mg Fluticasone/Salmeterol (Advair Diskus 100/50) 1 puff INH RQ12 [facility] Last Admin: 03/14/18 07:39 Dose: Not Given Fluticasone/Salmeterol (Advair Diskus 250/50) 1 puff INH RQ12 [facility] Sevelamer Carbonate (Renvela) 800 mg PO TIDCC [facility] Last Admin: 03/14/18 12:45 Dose: 800 mg Tiotropium [place] (Spiriva) 18 mcg INH RQ24 [facility] Venlafaxine HCl (Effexor Xr) 75 mg PO DAILY [facility] Last Admin: 03/14/18 11:08 Dose: 75 mg - Labs Labs: 03/14/18 14:24 03/14/18 14:24 - Constitutional Appears: Well - Head Exam Head Exam: ATRAUMATIC, NORMAL INSPECTION, NORMOCEPHALIC - Eye Exam Eye Exam: EOMI, Normal appearance, PERRL Pupil Exam: NORMAL ACCOMODATION, PERRL - ENT Exam ENT Exam: Mucous Membranes Moist, Normal Exam - Neck Exam Neck Exam: Full ROM, Normal Inspection. absent: Lymphadenopathy - Respiratory Exam Respiratory Exam: Decreased Breath Sounds - Cardiovascular Exam Cardiovascular Exam: REGULAR RHYTHM, +S1, +S2 - GI/Abdominal Exam GI & Abdominal Exam: Soft, Diminished Bowel Sounds - Rectal Exam Rectal Exam: Deferred Assessment and Plan (1) Chest pain Status: Acute (2) Pneumonia Status: Acute (3) Acute myocardial infarction Status: Acute (4) Anemia Status: Acute (5) CHF (congestive heart failure) Status: Acute (6) Cardiogenic shock Status: Acute (7) Coagulopathy Status: Acute (8) Diabetes mellitus Status: Acute (9) Dyspnea Status: Acute (10) ESRD (end stage renal disease) Status: Acute (11) Esophageal stricture Status: Acute (12) Hepatitis C antibody positive in blood Status: Acute (13) Hepatitis C antibody positive in blood Status: Acute (14) Renal failure, acute Status: Acute (15) Respiratory failure Status: Acute (16) Sepsis Status: Acute (17) Thrombocytopenia Status: Acute (18) Ventricular tachycardia Status: Acute (19) Diabetic nephropathy associated with type 2 diabetes mellitus Status: Chronic (20) HIV (human immunodeficiency virus infection) Status: Chronic - Assessment and Plan (Free Text) Plan: Shortness of breath Albuterol Q6 [facility] Advair Spirivia Ceftriaxone and Azithromycin X asher - negative for active disease f/u ABG Dr. Donis consulted, help appreciated saturating well on NC f/u am labs ESRD Dr. Siddiqui consulted help appreciated On dialysis T/TH/Sat HIV (human immunodeficiency virus infection) Patient is on HIV medication. Dr. Maldonado consulted - help appreciated Continue Raltegravir and Ritonavir Diabetes mellitus Accuchecks hypoglycemia protocol Starlix IIS Hx [place] ASA/plavix therapy trop negative x 2 Dr. Enriquez consulted, help appreciated Anxiety/Depression Xanax 2mg PO TID [facility] Efexor 75mg PO daily Prophylaxis Hep 5000u SC Q12 [facility] not indicated
[2018-03-14] MEDS: MethylPREDNISolone 40 mg Vial IVP SCH (19:08)
[2018-03-14] MEDS ORDERED: Azithromycin 500mg/250ML NS 500 MG/250 ML BAG IVPB SCH (20:30)
[2018-03-14] MEDS: Fluticasone-Salmeterol 250-50mcg Diskus INH SCH (20:40)
[2018-03-14] MEDS ORDERED: Potassium Chloride 20 mEq ER Tab PO STA (22:41)
--- NOTE | 2018-03-14 23:30 | CON ---
DATE: HISTORY OF PRESENT ILLNESS: This 57-year-old male, a smoker, with a past history of coronary artery disease, had bypass surgery with insertion of 3 stents, hypertension, diabetes mellitus, end-stage renal disease on dialysis, AICD insertion and history of colectomy, was now admitted with chest pain which started in the evening after he had had dialysis a couple of hours before that. He had chest discomfort mostly in the center and also was short of breath. Pain was described as with no radiation. He has had slight cough, hardly any sputum. There was no hemoptysis. He had not felt dizzy. The pain started along with dyspnea when the patient started to go to sleep early after he had had dialysis in the afternoon. There is no history of seizures. No abdominal pain or vomiting or any acute pain anywhere else other than the chest. He smokes cigarettes. He does not drink alcohol and does not give history of substance abuse. There is no reported allergy history. PAST MEDICAL HISTORY: As detailed above, includes coronary artery disease, stent placement, hypertension, diabetes mellitus, end-stage renal disease, pacemaker placement. FAMILY HISTORY: Unremarkable. REVIEW OF SYSTEMS: As detailed above. PHYSICAL EXAMINATION GENERAL: He is now alert, oriented, afebrile. VITAL SIGNS: Blood pressure 138/74, pulse 78, respirations 18 with hemoglobin oxygen saturation of 95%. HEENT: Unremarkable. NECK: Supple. No lymphadenopathy or thyromegaly. CARDIOPULMONARY: Regular with no gallop rhythm. LUNGS: Diminished breath sounds with occasional crackles and rhonchi. ABDOMEN: Soft. EXTREMITIES: There is no leg edema. Deep tendon reflexes are unremarkable. No leg tenderness. No focal deficits in the skeletal system. LABORATORY DATA: His white count is 7400, hemoglobin 12.1, platelet count 177,000. Sodium 138, potassium 4.1, chloride 97, carbon dioxide 24, BUN 32, creatinine 2.9, blood glucose 158. Troponin 0.04. Total protein 9, albumin 4.2, globulin 4.8. DIAGNOSTIC DATA: Chest x-ray shows cardiomegaly, pacemaker in the right chest wall, and suggestion of pulmonary vascular congestion with prominent bronchovascular markings. IMPRESSION: 1. Respiratory insufficiency. 2. Chronic obstructive pulmonary disease. 3. Coronary artery disease. 4. Diabetes mellitus. 5. Hypertensive cardiovascular disease. 6. End-stage renal disease. PLAN: I agree with your plan. Recommend bronchodilators, vasodilators and oxygen therapy, Cardiology followup with DVT prophylaxis, treatment of diabetes and renal failure. Benoit Donis MD
[2018-03-15 00:34] VITALS: RESP 20
[2018-03-15] MEDS: Albuterol-Ipratrop 3 mg / 0.5 (3 ml) UD INH SCH ×2 (01:08→07:21)
[2018-03-15] MEDS: MethylPREDNISolone 40 mg Vial IVP SCH (01:51)
--- NOTE | 2018-03-15 07:22 | CON ---
DATE: REASON FOR CONSULTATION: Exacerbation of congestive heart failure. HISTORY OF PRESENT ILLNESS: The patient is a 57-year-old male, who is HIV positive, history of coronary artery disease, status post coronary artery stenting, history of diabetes mellitus, history of end-stage renal disease, on hemodialysis for the past 5 months, presents because of shortness of breath. The patient denies any substernal chest pain, and the patient has a history of single chamber ICD and reports that his ICD discharged few months ago. The patient does not recall the name of his personal care aide or his log loader. The patient denies missing any hemodialysis. SOCIAL HISTORY: The patient is a smoker and occasional drinker. MEDICATIONS: Advair one puff every 12 hours, aspirin 325 mg once a day, Rocephin 1 gm intravenously daily, heparin 5000 units subcutaneous every 12 hours, Norvir 100 mg at bedtime, Plavix 75 mg once a day, Solu-Medrol 40 mg intravenously every 8 hours, Toprol XL 50 mg once a day, and Zithromax 500 mg intravenously daily. PHYSICAL EXAMINATION: GENERAL: The patient is middle aged male, who does not appear to be in any distress at this time. VITAL SIGNS: Blood pressure 134/89, heart rate 82, temperature 98, and respirations 18. HEENT: Normocephalic. CHEST: Diminished breath sounds over the bases and scattered bilateral rhonchi. HEART: S1 and S2, regular. ABDOMEN: Soft. EXTREMITIES: Trace edema. LABORATORY DATA: Chest x-ray reveals cardiomegaly, post VA and CHF, right middle and lower lobe infiltrate cannot to be ruled out. EKG revealed sinus rhythm with PVCs, anterior infarct of undermined age and nonspecific intraventricular conduction delay. On 12/29/2016, the patient required emergency cardiac catheterization and right coronary artery stenting for acute ST elevation myocardial infraction and required intraaortic balloon pump placement for cardiogenic shock. Echocardiographic study performed the same day revealed severely depressed systolic function. ASSESSMENT: 1. Ischemic cardiomyopathy. 2. Status post right coronary artery stenting in December last year. 3. Status post volume overload. 4. End-stage renal disease, on hemodialysis. 5. Consider right lower middle lobe pneumonia. 6. Human immunodeficiency virus positive. RECOMMENDATIONS: Continue current IV Rocephin and IV Zithromax. Continue aspirin 325 mg once a day, Plavix 75 mg once a day, Solu-Medrol 40 mg intravenously every 8 hours, subcutaneous heparin 5000 units twice a day, Toprol-XL 50 mg t.i.d. Obtain an echocardiographic study. Jose Enriquez MD
[2018-03-15] MEDS: Fluticasone-Salmeterol 250-50mcg Diskus INH SCH (07:24)
[2018-03-15 07:47] VITALS: BP 130/80; PULSE 98; TEMP 98.8; O2SAT 98
[2018-03-15] MEDS ORDERED: Tiotropium 18 mcg Cap For Inhalation INH SCH (08:00)
[2018-03-15] MEDS: (Novolin R) Insulin Human Regular 100 units/ml vial SC SCH (08:10)
--- NOTE | 2018-03-15 11:09 | CP.PCM.PN ---
Subjective - Date & Time of Evaluation Date of Evaluation: 03/15/18 Time of Evaluation: 11:07 - Subjective Subjective: PGY [address] Curtis Pt seen and examined at bedside. No acute events overnight. Currently patient is resting comfortably and is asking to leave the hospital. Patient denies having any CP, SOB, abd pain, N/V/D/C, wheezing, LE swelling, coughing. Patient is tolerating PO intake. Later, patient is seen ambulating in the hallway without difficulty. Objective - Vital Signs/Intake and Output Vital Signs (last 24 hours): Temp Pulse Resp BP Pulse Ox 98.8 F 98 H 20 130/80 98 03/15/18 07:15 03/15/18 07:15 03/15/18 07:15 03/15/18 07:15 03/15/18 07:15 Intake and Output: 03/15/18 03/15/18 06:59 18:59 Intake Total 240 Output Total 200 Balance 40 - Labs Labs: 03/14/18 14:24 03/14/18 14:24 - Constitutional Appears: Non-toxic, No Acute Distress - Head Exam Head Exam: ATRAUMATIC - ENT Exam ENT Exam: Mucous Membranes Moist - Respiratory Exam Respiratory Exam: Wheezes (Diffusely inspiratory and expiratory ). absent: Accessory Muscle Use, Chest Wall Tenderness, Rales, Rhonchi, Respiratory Distress - Cardiovascular Exam Cardiovascular Exam: REGULAR RHYTHM, +S1, +S2. absent: Gallop, Rubs, Murmur - GI/Abdominal Exam GI & Abdominal Exam: Soft, Normal Bowel Sounds. absent: Distended, Firm, Guarding, Rigid, Tenderness, Organomegaly - Extremities Exam Extremities Exam: absent: Pedal Edema, Tenderness - Neurological Exam Neurological Exam: Alert, Awake, Oriented x3 - Psychiatric Exam Psychiatric exam: Normal Affect, Normal Mood - Skin Skin Exam: Dry, Intact, Normal Color, Warm Assessment and Plan - Assessment and Plan (Free Text) Assessment: Shortness of breath Albuterol Q6 miguel Advair Spirivia Ceftriaxone and Azithromycin X ray - negative for active disease Dr. Donis consulted, help appreciated saturating well on [place] ESRD Dr. Siddiqui consulted help appreciated On dialysis T/TH/Sat HIV (human immunodeficiency virus infection) Patient is on HIV medication. Dr. Maldonado consulted - help appreciated Continue Raltegravir and Ritonavir Diabetes mellitus Accuchecks hypoglycemia protocol Starlix IIS Hx [place] ASA/plavix therapy trop negative x 2 Dr. Enriquez consulted, help appreciated Patient was scheduled to have echo done today. patient refused this test stating that he has appointwith with his private leave manager outpt on 04/26/18 and will have echo done with home. patient was explained the risks of refusing to have this test done now and he understood and insisted on getting it done outpt. Anxiety/Depression Xanax 2mg PO TID [facility] Efexor 75mg PO daily Prophylaxis Hep 5000u SC Q12 [facility] not indicated All management per Dr. Richie Curtis Patient signed out again medical advice. Risks were thoroughly explained to patient and understood. Patient was told to return to ED if symptoms worsen.
[2018-03-16 18:15] LABS: % CD4 (T HELPER CELL) 50 Percent (30-61); % CD8 (SUPPRESSOR T CELL) 32 Percent (12-42); ABSOLUTE CD4 CELLS 417 Cells/mcL (490-1740); ABSOLUTE CD8 CELLS 267 Cells/mcL (180-1170); ABSOLUTE LYMPHOCYTES 842 Cells/mcL (850-3900); HELPER/SUPPRESSOR RATIO 1.56 Ratio (0.86-5.00)
== END 2018-03-15 09:37 | disposition left against medical advice (07) | DRG 871 ==
LOC: C.ER 16:37 → C.6T 18:45 → C.9E 18:45
PROVIDERS: ADMIT Internal Medicine Nephrology; ATTEND Internal Medicine Nephrology
DX: A41.9 Sepsis, unspecified organism (principal); J18.9 Pneumonia, unspecified organism; N18.6 End stage renal disease; R57.0 Cardiogenic shock; J96.00 Acute respiratory failure, unspecified whether with hypoxia or hypercapnia; D68.9 Coagulation defect, unspecified; I13.2 Hypertensive heart and chronic kidney disease with heart failure and with stage 5 chronic kidney disease, or end stage renal disease; I47.2 Ventricular tachycardia; J44.0 Chronic obstructive pulmonary disease with (acute) lower respiratory infection; N17.9 Acute kidney failure, unspecified; R65.20 Severe sepsis without septic shock; D64.9 Anemia, unspecified; E11.21 Type 2 diabetes mellitus with diabetic nephropathy; E11.22 Type 2 diabetes mellitus with diabetic chronic kidney disease; F17.210 Nicotine dependence, cigarettes, uncomplicated; F41.8 Other specified anxiety disorders; Z21 Asymptomatic human immunodeficiency virus [HIV] infection status; I25.10 Atherosclerotic heart disease of native coronary artery without angina pectoris; I25.2 Old myocardial infarction; I25.5 Ischemic cardiomyopathy; I50.9 Heart failure, unspecified; K22.2 Esophageal obstruction; Z99.2 Dependence on renal dialysis; Z79.4 Long term (current) use of insulin

== ENCOUNTER 2018-07-02 17:03 | Inpatient (IN) | payer OTHER ==
[2018-07-02 17:14] VITALS: BMI 26.1
[2018-07-02 17:43] LABS: BASO % 0.6 % (0.0-2.0); EOS # 0.2 K/uL (0.0-0.7); EOS % 2.8 % (0.0-4.0); HEMOGLOBIN 9.8 g/dL (12.0-18.0); LYMPH # 0.8 K/uL (1.0-4.3); LYMPH % 11.5 % (20.0-40.0); MEAN CELL VOLUME 93.7 fL (80.0-94.0); MEAN CORPUSCULAR HEMOGLOBIN 31.6 pg (27.0-31.0); MEAN CORPUSCULAR HGB CONC 33.7 g/dL (33.0-37.0); MEAN PLATELET VOLUME 8.3 fL (7.2-11.7); MONO # 0.6 K/uL (0.0-0.8); MONO % 9.7 % (0.0-10.0); NEUT % 75.4 % (50.0-75.0); NRBC % 0.1 % (0.0-2.0); RBC 3.1 Mil/uL (4.40-5.90); RED CELL DISTRIBUTION WIDTH 14.9 % (11.5-14.5); WHITE BLOOD COUNT 6.7 K/uL (4.8-10.8)
--- NOTE | 2018-07-02 17:45 | C.PDOC ---
History Of Present Illness 57 year old male with a history of HTN, diabetes, who is currently on renal dialysis presents to the emergency department with complaints of recent slurred speech and an overall "disjointed" feeling. Patient states he goes for dialysis three times per week. He reports he is having difficulty walking and remembering things. He states that his roommate asked him to leave the apartment , so he left and as he was walking to a laundromat he reports tripping and falling, hitting his forehead, nose, and upper lip. He does not report loss of consciousness or seizure. Patient reports he was helped up by EMS who transported him here. He deneis drug abuse but states that his roommate is "a drug dealer". - HPI Time Seen by Provider: 07/02/18 17:18 Chief Complaint (Nursing): Trauma History Per: Patient History/Exam Limitations: no limitations Onset/Duration Of Symptoms: Hrs Location Of Injury: Anterior: Face, Head - Fall Fall:Prior To Injury: Tripped Past Medical History Reviewed: Historical Data, Nursing Documentation, Vital Signs Vital Signs: Last Vital Signs Temp 99.5 F 07/02/18 17:14 Pulse 76 07/02/18 19:17 Resp 9 L 07/02/18 19:17 BP 103/67 07/02/18 19:17 Pulse Ox 100 07/02/18 19:17 - Medical History PMH: CHF, HIV, HTN, End Stage Renal Disease, Chronic Kidney Disease Surgical History: No Surg Hx - [facility] Procedures ASSIST WITH CARDIAC OUTPUT USING BALLOON PUMP, CONTINUOUS (12/29/16) BYPASS LEFT BRACHIAL ARTERY TO UPPER ARM VEIN, OPEN APPROACH (05/05/17) DILATION OF 3 COR ART WITH 3 DRUG-ELUT, PERC APPROACH (12/29/16) INSERTION OF ENDOTRACHEAL AIRWAY INTO TRACHEA, VIA OPENING (12/29/16) INSERTION OF INFUSION DEV INTO SUP VENA CAVA, PERC APPROACH (05/05/17) MEASURE OF CARDIAC SAMPL & PRESSURE, L HEART, PERC APPROACH (12/29/16) MEASUREMENT OF CARDIAC DEFIBRILLATOR, EXTERNAL APPROACH (12/29/16) PERFORMANCE OF URINARY FILTRATION, MULTIPLE (05/05/17) PLAIN RADIOGRAPHY OF LEFT HEART USING OTHER CONTRAST (12/29/16) PLAIN RADIOGRAPHY OF MULT COR ART USING OTH CONTRAST (12/29/16) RESPIRATORY VENTILATION, 24-96 CONSECUTIVE HOURS (12/29/16) Family History: States: No Known Family Hx - Social History Hx Tobacco Use: Yes Hx Alcohol Use: No Hx Substance Use: No Review Of Systems Constitutional: Positive for: Other ( disorganization, difficulty walking and confusion with difficulty remembering things) Eyes: Negative for: Vision Change Cardiovascular: Negative for: Chest Pain, Palpitations Respiratory: Negative for: Shortness of Breath Gastrointestinal: Negative for: Nausea, Vomiting, Abdominal Pain Skin: Positive for: Other (abrasions to the head) Neurological: Positive for: Incoordination, Change in Speech, Confusion, Dizziness. Negative for: Headache Physical Exam - Physical Exam Appears: Non-toxic, No Acute Distress Skin: Warm, Dry Head: Normacephalic, Abrasion (full thickness abrasions across the forehead, bridge of the nose. Flap abrasion to the upper lip. ) Eye(s): bilateral: Normal Inspection, PERRL (2mm) Nose: Normal Oral Mucosa: Moist Neck: Normal, Normal ROM, No Midline Cervical Tenderness, No Paracervical Tenderness, Supple Chest: Symmetrical, No Tenderness Cardiovascular: Rhythm Regular, No Murmur Respiratory: Normal Breath Sounds, No Rales, No Rhonchi, No Wheezing Extremity: Normal ROM, No Tenderness Extremity: Bilateral: Atraumatic Neurological/Psych: Oriented x3, No Normal Speech (slurred), Normal Cognition, Normal Motor, Normal Sensation, Normal Reflexes ED Course And Treatment - Laboratory Results Result Diagrams: 07/02/18 17:38 07/02/18 17:38 Lab Interpretation: Abnormal (Mild anemia due to renal failure, BUN 34, Cr 4.5, UDS + methadone and benzos.) ECG: Interpreted By Sc ECG Rhythm: Sinus Rhythm (with inferior infarct and nonspecific intraventricular conduction block) ECG Interpretation: No Acute Changes - Radiology CXR: Interpreted by Sc CXR Interpretation: Yes: Cardiomegaly, Other (mild patchy diffuse infiltrates) - CT Scan/US Head Other Rad Studies (CT/US): Read By Radiologist, Radiology Report Reviewed CT/US Interpretation: IMPRESSION: Trace right parietal subarachnoid hemorrhage with no mass effect. Stable, trace diffuse cerebral atrophy. Tiny chronic lacune left thalamus. Progress Note: Plan: CT Head w/o Contrast. EKG. Alcohol Serum. CMP. Drug Screen. Magnesium. CBC. PTT. Prothrombin Time. CXR One View - Physician Consult Information Outcome Of Conversation: Case discussed with Dr Ray. Recommends observation and repeat CT in 4-[address] Richie Curtis agrees to admit to his service for observation. Disposition - Disposition Disposition: HOSPITALIZED Disposition Time: 19:24 Condition: FAIR - POA Present On Arrival: Falls Or Trauma - Clinical Impression Clinical Impression: ESRD (end stage renal disease), Concussion with no loss of consciousness, Subarachnoid hemorrhage after traumatic injury without open intracranial wound, with prolonged loss of consciousness without return to pre-existing level of consciousness - Scribe Statement The provider has reviewed the documentation as recorded by the Scribe (Lazaro Ramesh) Provider Attestation: All medical record entries made by the Scribe were at my direction and personally dictated by me. I have reviewed the chart and agree that the record accurately reflects my personal performance of the history, physical exam, medical decision making, and the department course for this patient. I have also personally directed, reviewed, and agree with the discharge instructions and disposition.
[2018-07-02 17:55] LABS: INR 1.2; PROTHROMBIN TIME 13.2 SECONDS (9.7-12.2)
[2018-07-02 17:57] LABS: ALB/GLOB RATIO 1.2 (1.0-2.1); ALBUMIN 4.4 g/dL (3.5-5.0); ALT/SGPT 22 U/L (21-72); AST/SGOT 41 U/L (17-59); BLOOD UREA NITROGEN 34 mg/dL (9-20); GFR AFRICAN-AMERICAN 16; GFR NON-AFRICAN AMERICAN 14
[2018-07-02] MEDS ORDERED: Bacitracin 500 Units/gm Oint Foilpak UD ONE (18:13)
--- NOTE | 2018-07-02 18:17 | CT ---
Date of service: 07/02/2018 PROCEDURE: CT HEAD WITHOUT CONTRAST. HISTORY: R/O Bleed COMPARISON: None available. TECHNIQUE: Axial computed tomography images were obtained through the head/brain without intravenous contrast. Radiation dose: Total exam DLP = mGy-cm. This CT exam was performed using one or more of the following dose reduction techniques: Automated exposure control, adjustment of the mA and/or kV according to patient size, and/or use of iterative reconstruction technique. FINDINGS: HEMORRHAGE: Trace intracranial hemorrhage is appreciated subarachnoid at the sulcus posterior to the right central gyrus. BRAIN: The bustillos-white matter differentiation is well preserved. There is no mass effect or definitive edema pattern appreciated including the cortex. There is minimal proportional expansion of the ventriculosulcal and cisternal spaces however in a pattern most compatible with diffuse cerebral atrophy. Chronic lacune left thalamus. No suspicious extra-axial fluid collection is identified in the midline brain anatomy appears grossly nonfocal as imaged. VENTRICLES: Unremarkable. No hydrocephalus. CALVARIUM: Unremarkable. PARANASAL SINUSES: Unremarkable as visualized. No significant inflammatory changes. MASTOID AIR CELLS: Unremarkable as visualized. No inflammatory changes. OTHER FINDINGS: None. IMPRESSION: Trace right parietal subarachnoid hemorrhage with no mass effect. Stable, trace diffuse cerebral atrophy. Tiny chronic lacune left thalamus. Findings discussed with Daniel Willis with written down and read back verification 07/02/2018 6:05 p.m..
[2018-07-02 19:00] LABS: BARBITURATES, UR NEGATIVE (NEGATIVE); OPIATES, UR NEGATIVE (NEGATIVE); PHENCYCLIDINE, UR NEGATIVE (NEGATIVE)
[2018-07-02 19:08] LABS: BENZODIAZEPINES, UR POSITIVE (NEGATIVE)
--- NOTE | 2018-07-03 08:15 | CT ---
Date of service: 07/02/2018 PROCEDURE: CT HEAD WITHOUT CONTRAST. HISTORY: repeat COMPARISON: None available. TECHNIQUE: Axial computed tomography images were obtained through the head/brain without intravenous contrast. Radiation dose: Total exam DLP = 865 mGy-cm. This CT exam was performed using one or more of the following dose reduction techniques: Automated exposure control, adjustment of the mA and/or kV according to patient size, and/or use of iterative reconstruction technique. FINDINGS: HEMORRHAGE: Persistent subarachnoid hemorrhage in the right parietal lobe, similar to the prior study. BRAIN: Cerebral and cerebellar atrophy. Small chronic lacunar infarct in the left thalamus. VENTRICLES: Unremarkable. No hydrocephalus. CALVARIUM: Unremarkable. PARANASAL SINUSES: Unremarkable as visualized. No significant inflammatory changes. MASTOID AIR CELLS: Unremarkable as visualized. No inflammatory changes. OTHER FINDINGS: None. IMPRESSION: Persistent subarachnoid hemorrhage in the right parietal lobe, similar to the prior study. If symptoms persist, consider correlation with MRI. These findings were preliminarily reported at 12:25 a.m. on 07/03/[address] Shamir Collins from [facility].
--- NOTE | 2018-07-03 10:20 | RAD ---
Date of service: 07/02/2018 PROCEDURE: CHEST RADIOGRAPH, 1 VIEW HISTORY: SOB COMPARISON: 03/13/2018 FINDINGS: LUNGS: Clear. PLEURA: No pneumothorax or pleural fluid seen. CARDIOVASCULAR: AICD. Normal heart size. No congestive change. OSSEOUS STRUCTURES: No significant abnormalities. VISUALIZED UPPER ABDOMEN: Normal. OTHER FINDINGS: None. IMPRESSION: No active disease.
[2018-07-03] MEDS: Pantoprazole 40 mg EC Tab PO SCH (10:31)
--- NOTE | 2018-07-03 16:44 | CP.PCM.CON ---
<Zachary Bryan - Last Filed: 07/03/18 19:06> History of Present Illness - History of Present Illness History of Present Illness: Neurology Consult Note for Dr. Darnell This patient is a 57 year old male with a PMHx of GA s/p 3 stents, Systolic CHF , HIV, Diabetes, Hypertension, ESRD (, , Tuesday) Dialysis who presented to the ED with complaints of chest pain, full body weakness, and inability to talk. Patient states around 7:30 last night, he was carrying laundry on the street when his body suddenly went limp and he was unable to talk. The patient fell and admits to hitting his head. The ambulance was called by people who witnessed him fall. Patient states he began to regain his speech and motor function back when he was in the emergency room. CT scan of the head upon admission read "Trace right parietal subarachnoid hemorrhage with no mass effect. Stable, trace diffuse cerebral atrophy. Tiny chronic lacune left thalamus.". Neurology consult was placed due to subarachnoid hemorrhage. Second CT scan of the head showed "persistent subarachnoid hemorrhage in the right parietal lobe, similar to the prior study. Of note, patient is a poor historian. History obtained from patient and chart. At this time patient only complains of mild gait instability. He denies any fever, chills, chest pain, SOB, vision changes, focal motor weakness, sensory loss, auditory/visual hallucinations, suicidal/homicidal ideation. Patient put on 1:1 because he was attempting to elope. PMHx: As stated above PSHx: Defibrillator (2013), Abdominal Surgery (2010) Allergies: NKDA SocialHx: Admits to 3-6 cigarettes a day for "many years" (Currently does not smoke), States he has not had alcoholic beverage for 30 years, Denies illicit drug use Hos: 02/2018 for Shortness of Breath FamHx: Esophageal CA (Father) Meds: Patient states he takes a blood thinner called hemoglobin. Is unsure of the name of his medications. Review of Systems - Review of Systems All systems: reviewed and no additional remarkable complaints except (As per HPI ) Review of Systems: As per HPI Past Patient History - Infectious Disease Hx of Infectious Diseases: None - Past Medical History & Family History Past Medical History?: Yes - Past Social History Smoking Status: Heavy Smoker > 10 Cigarettes Daily - CARDIAC Hx Congestive Heart Failure: Yes Hx Hypertension: Yes - RENAL Hx Chronic Kidney Disease: Yes - ENDOCRINE/METABOLIC Hx Endocrine Disorders: Yes Hx Diabetes Mellitus Type 2: Yes - HEMATOLOGICAL/ONCOLOGICAL Hx Human Immunodeficiency Virus (HIV): Yes - MUSCULOSKELETAL/RHEUMATOLOGICAL Hx Musculoskeletal Disorders: Yes Hx Falls: Yes (multiple stage healing laceration) - PSYCHIATRIC Hx Substance Use: No - SURGICAL HISTORY Hx Surgeries: Yes Other/Comment: AICD placement, Right AVF, Colectomy - ANESTHESIA Hx Anesthesia: Yes Hx Anesthesia Reactions: No Hx Malignant Hyperthermia: No Meds Allergies/Adverse Reactions: Allergies Allergy/AdvReac Type Severity Reaction Status Date / Time No Known Allergies Allergy Verified 07/02/18 17:19 - Medications Medications: Current Medications Pantoprazole Sodium (Protonix Ec Tab) 40 mg PO DAILY [facility] Last Admin: 07/03/18 10:31 Dose: 40 mg Physical Exam - Constitutional Appears: Non-toxic, No Acute Distress, Unkempt, Confused - Head Exam Head Exam: absent: ATRAUMATIC, NORMAL INSPECTION Additional comments: Multiple facial abrasions. Left Forehead tender to palpation. - Eye Exam Eye Exam: PERRL. absent: Scleral icterus Pupil Exam: Miosis. absent: NORMAL ACCOMODATION Additional comments: Horizontal and vertical gaze intact. Patient needed direction in order to look horizontally and then vertically. He did not converge. - ENT Exam ENT Exam: Mucous Membranes Moist - Neck Exam Neck exam: Positive for: Normal Inspection - Respiratory Exam Respiratory Exam: NORMAL BREATHING PATTERN. absent: Accessory Muscle Use - Cardiovascular Exam Cardiovascular Exam: +S1, +S2 - Extremities Exam Extremities exam: Negative for: normal inspection, pedal edema, tenderness Additional comments: B/L quadricep atrophy R>L - Neurological Exam Neurological exam: Oriented x3 Additional comments: Unstable Gait Right Upper Ext. 5/5Muscle Strength Left Upper Ext. 4/5 Muscle Strength Right/Left Lower Ext. 5/5 Muscle Strength. No sensory deficit Negative pronator drift Negative Babinski - Psychiatric Exam Additional comments: Constricted Affect, Odd Behavior. Results - Vital Signs Recent Vital Signs: Last Vital Signs Temp 97.7 F 07/03/18 15:00 Pulse 73 07/03/18 16:04 Resp 20 07/03/18 15:00 BP 126/74 07/03/18 15:00 Pulse Ox 98 07/03/18 16:38 - Labs Result Diagrams: 07/02/18 17:38 07/02/18 17:38 Labs: Laboratory Results - last 24 hr 07/02/18 07/02/18 07/02/18 17:10 17:38 17:38 WBC 6.7 D RBC 3.10 L Hgb 9.8 L Hct 29.1 L MCV 93.7 MCH 31.6 H MCHC 33.7 RDW 14.9 H Plt Count 163 MPV 8.3 Neut % (Auto) 75.4 H Lymph % (Auto) 11.5 L [place] % (Auto) 9.7 Eos % (Auto) 2.8 Baso % (Auto) 0.6 Neut # (Auto) 5.0 Lymph # (Auto) 0.8 L [place] # (Auto) 0.6 Eos # (Auto) 0.2 Baso # (Auto) 0.0 PT INR APTT Sodium 146 Potassium 4.0 Chloride 102 Carbon Dioxide 30 Anion Gap 19 BUN 34 H Creatinine 4.5 H Est GFR ( Amer) 16 Est GFR (Non-Af Amer) 14 POC Glucose (mg/dL) 120 H Random Glucose 121 H Calcium 10.0 Magnesium 2.2 Total Bilirubin 1.1 AST 41 ALT 22 Alkaline Phosphatase 71 Total Protein 8.2 Albumin 4.4 Globulin 3.8 Albumin/Globulin Ratio 1.2 Urine Opiates Screen Urine Methadone Screen Ur Barbiturates Screen Ur Phencyclidine Scrn Ur Amphetamines Screen U Benzodiazepines Scrn U Oth Cocaine Metabols U Cannabinoids Screen Alcohol, Quantitative < 10 07/02/18 07/02/18 07/03/18 17:38 18:24 06:10 WBC RBC Hgb Hct MCV MCH MCHC RDW Plt Count MPV Neut % (Auto) Lymph % (Auto) [place] % (Auto) Eos % (Auto) Baso % (Auto) Neut # (Auto) Lymph # (Auto) [place] # (Auto) Eos # (Auto) Baso # (Auto) PT 13.2 H INR 1.2 APTT 34 Sodium Potassium Chloride Carbon Dioxide Anion Gap BUN Creatinine Est GFR ( Amer) Est GFR (Non-Af Amer) POC Glucose (mg/dL) 93 Random Glucose Calcium Magnesium Total Bilirubin AST ALT Alkaline Phosphatase Total Protein Albumin Globulin Albumin/Globulin Ratio Urine Opiates Screen Negative Urine Methadone Screen Positive H Ur Barbiturates Screen Negative Ur Phencyclidine Scrn Negative Ur Amphetamines Screen Negative U Benzodiazepines Scrn Positive U Oth Cocaine Metabols Negative U Cannabinoids Screen Negative Alcohol, Quantitative 07/03/18 11:35 WBC RBC Hgb Hct MCV MCH MCHC RDW Plt Count MPV Neut % (Auto) Lymph % (Auto) [place] % (Auto) Eos % (Auto) Baso % (Auto) Neut # (Auto) Lymph # (Auto) [place] # (Auto) Eos # (Auto) Baso # (Auto) PT INR APTT Sodium Potassium Chloride Carbon Dioxide Anion Gap BUN Creatinine Est GFR ( Amer) Est GFR (Non-Af Amer) POC Glucose (mg/dL) 179 H Random Glucose Calcium Magnesium Total Bilirubin AST ALT Alkaline Phosphatase Total Protein Albumin Globulin Albumin/Globulin Ratio Urine Opiates Screen Urine Methadone Screen Ur Barbiturates Screen Ur Phencyclidine Scrn Ur Amphetamines Screen U Benzodiazepines Scrn U Oth Cocaine Metabols U Cannabinoids Screen Alcohol, Quantitative Assessment & Plan - Assessment and Plan (Free Text) Assessment: 57 year old male with a PMHx of GA s/p 3 stents, Systolic CHF, HIV, Diabetes, Hypertension, ESRD (, Tuesday) Dialysis who presented to the ED with complaints of chest pain, full body weakness, and inability to talk. Neurology consulted due to subarachnoid hemorrhage shown on head CT. Plan: 1. Subarachnoid Hemorrhage of Right Parietal lobe. CT Head w/o contrast (Adm) Trace right parietal subarachnoid hemorrhage with no mass effect. Stable, trace diffuse cerebral atrophy. Tiny chronic lacune left thalamus. CT Head w/o contrast (07/03/18): Persistent subarachnoid hemorrhage in the right parietal lobe, similar to the prior study. If symptoms persist, consider correlation with MRI. Hold all blood thinners Blood Pressure Control Correct metabolic Abnormalities [place] order CT Head w/o Contrast for tomorrow morning (07/04/18) MRI Brain w/o Contrast for tomorrow afternoon. (07/04/18) NeuroSurgery Consulted (Dr. Ray). Recs appreciated All management per Dr. Carie Bryan, PGY-2 <Carmine Darnell - Last Filed: 07/03/18 19:55> Meds - Medications Medications: Current Medications Pantoprazole Sodium (Protonix Ec Tab) 40 mg PO DAILY [facility] Last Admin: 07/03/18 10:31 Dose: 40 mg Results - Vital Signs Recent Vital Signs: Last Vital Signs Temp 97.7 F 07/03/18 15:00 Pulse 73 07/03/18 16:04 Resp 20 07/03/18 15:00 BP 126/74 07/03/18 15:00 Pulse Ox 98 07/03/18 16:38 - Labs Result Diagrams: 07/02/18 17:38 07/02/18 17:38 Labs: Laboratory Results - last 24 hr 07/02/18 07/03/18 07/03/18 17:10 06:10 11:35 POC Glucose (mg/dL) 120 H 93 179 H Assessment & Plan - Assessment and Plan (Free Text) Plan: Will also order EEG awake and drowsy for 30 minutes. Attending/Attestation - Attestation I have personally seen and examined this patient.: Yes I have fully participated in the care of the patient.: Yes I have reviewed all pertinent clinical information: Yes
--- NOTE | 2018-07-03 19:21 | CP.PCM.HP ---
Past Patient History - Infectious Disease Hx of Infectious Diseases: None - Past Medical History & Family History Past Medical History?: Yes - Past Social History Smoking Status: Heavy Smoker > 10 Cigarettes Daily - CARDIAC Hx Congestive Heart Failure: Yes Hx Hypertension: Yes - RENAL Hx Chronic Kidney Disease: Yes - ENDOCRINE/METABOLIC Hx Endocrine Disorders: Yes Hx Diabetes Mellitus Type 2: Yes - HEMATOLOGICAL/ONCOLOGICAL Hx Human Immunodeficiency Virus (HIV): Yes - MUSCULOSKELETAL/RHEUMATOLOGICAL Hx Musculoskeletal Disorders: Yes Hx Falls: Yes (multiple stage healing laceration) - PSYCHIATRIC Hx Substance Use: No - SURGICAL HISTORY Hx Surgeries: Yes Other/Comment: AICD placement, Right AVF, Colectomy - ANESTHESIA Hx Anesthesia: Yes Hx Anesthesia Reactions: No Hx Malignant Hyperthermia: No Meds Allergies/Adverse Reactions: Allergies Allergy/AdvReac Type Severity Reaction Status Date / Time No Known Allergies Allergy Verified 07/02/18 17:19 Physical Exam - Constitutional Appears: Well - Head Exam Head Exam: ATRAUMATIC, NORMAL INSPECTION, NORMOCEPHALIC - Eye Exam Eye Exam: EOMI, Normal appearance, PERRL Pupil Exam: NORMAL ACCOMODATION, PERRL - ENT Exam ENT Exam: Mucous Membranes Moist, Normal Exam - Neck Exam Neck exam: Positive for: Normal Inspection - Respiratory Exam Respiratory Exam: Decreased Breath Sounds - Cardiovascular Exam Cardiovascular Exam: REGULAR RHYTHM, +S1, +S2 - GI/Abdominal Exam GI & Abdominal Exam: Diminished Bowel Sounds, Soft - Rectal Exam Rectal Exam: Deferred Results - Vital Signs Recent Vital Signs: Last Vital Signs Temp 97.7 F 07/03/18 15:00 Pulse 73 07/03/18 16:04 Resp 20 07/03/18 15:00 BP 126/74 07/03/18 15:00 Pulse Ox 98 07/03/18 16:38 - Labs Result Diagrams: 07/02/18 17:38 07/02/18 17:38 Labs: Laboratory Results - last 24 hr 07/02/18 07/03/18 07/03/18 17:10 06:10 11:35 POC Glucose (mg/dL) 120 H 93 179 H
--- NOTE | 2018-07-03 23:58 | CARD ---
APPROVED REPORT Date of service: 07/02/2018 EKG Measurement Heart [id number] <Conclusion> Normal sinus rhythm Nonspecific intraventricular block Inferior infarct, age undetermined Abnormal ECG
--- NOTE | 2018-07-04 07:59 | CP.PCM.PN ---
Subjective - Date & Time of Evaluation Date of Evaluation: 07/04/18 Time of Evaluation: 07:43 - Subjective Subjective: Mr. Peck was seen and examined at the bedside. He is alert, oriented x3. He remembers the events prior to admission. He has the healing facial laceration. He is able to follow simple commands, but remains on 1:1 sitter for patient safety. There was no untoward events overnight. Objective - Vital Signs/Intake and Output Vital Signs (last 24 hours): Temp Pulse Resp BP Pulse Ox 97.5 F L 70 20 169/77 H 99 07/03/18 23:30 07/04/18 05:38 07/03/18 23:30 07/03/18 23:30 07/03/18 23:30 Intake and Output: 07/04/18 07/04/18 06:59 18:59 Intake Total 250 Output Total 0 Balance 250 - Medications Medications: Current Medications Pantoprazole Sodium (Protonix Ec Tab) 40 mg PO DAILY [facility] Last Admin: 07/03/18 10:31 Dose: 40 mg - Labs Labs: 07/02/18 17:38 07/02/18 17:38 PT 13.2 SECONDS (9.7-12.2) H 07/02/18 17:38 INR 1.2 07/02/18 17:38 APTT 34 SECONDS (21-34) 07/02/18 17:38 - Constitutional Appears: No Acute Distress - Head Exam Head Exam: NORMAL INSPECTION - Eye Exam Pupil Exam: Miosis, PERRL Additional comments: 2 mm brisk - Neurological Exam Neurological Exam: Alert, Awake Neuro motor strength exam: Left Upper Extremity: 4, Right Upper Extremity: 4, Left Lower Extremity: 4, Right Lower Extremity: 4 Additional comments: alert, oriented, follows commands sensation is intact. Assessment and Plan (1) Subarachnoid hemorrhage after traumatic injury without open intracranial wound, with prolonged loss of consciousness without return to pre-existing level of consciousness Assessment & Plan: Case discussed with Dr. Darnell, continue all current medical regimen. Pending EEG. Recommend hydration, blood pressure control, treat any electrolyte abnormalities, normothermia. Status: Acute
[2018-07-04] MEDS: Pantoprazole 40 mg EC Tab PO SCH (11:07)
--- NOTE | 2018-07-04 11:14 | CP.PCM.CON ---
History of Present Illness - History of Present Illness History of Present Illness: This patient is a 57 year old male with a PMHx of [place] s/p 3 stents, Systolic CHF , HIV, Diabetes, Hypertension, ESRD (, Tuesday) Dialysis who presented to the ED with complaints of chest pain, full body weakness, and inability to talk. Patient states around 7:30 last night, he was carrying laundry on the street when his body suddenly went limp and he was unable to talk. The patient fell and admits to hitting his head. CTOH revealed trace SAH, repeat CT same findings. drug screen pos for methadone and benzos Last HD Tuesday Pt is currently confused and anxious, unable to answer questions PMHx: esrd htn hiv diverticular dz cad s/p cardiac cath and stent last year aicd PSH: AICD, 3 cardiac stents, partial colectomy, permcath Meds: MAR reviewed NKDA Social: + Tobacco, no ETOH/Drugs, former + illicit drug use Fhx: non-contributory Review of Systems - Review of Systems Systems not reviewed;Unavailable: Altered Mental Status Past Patient History - Infectious Disease Hx of Infectious Diseases: None - Past Medical History & Family History Past Medical History?: Yes - Past Social History Smoking Status: Heavy Smoker > 10 Cigarettes Daily - CARDIAC Hx Congestive Heart Failure: Yes Hx Hypertension: Yes - RENAL Hx Chronic Kidney Disease: Yes - ENDOCRINE/METABOLIC Hx Endocrine Disorders: Yes Hx Diabetes Mellitus Type 2: Yes - HEMATOLOGICAL/ONCOLOGICAL Hx Human Immunodeficiency Virus (HIV): Yes - MUSCULOSKELETAL/RHEUMATOLOGICAL Hx Musculoskeletal Disorders: Yes Hx Falls: Yes (multiple stage healing laceration) - PSYCHIATRIC Hx Substance Use: No - SURGICAL HISTORY Hx Surgeries: Yes Other/Comment: AICD placement, Right AVF, Colectomy - ANESTHESIA Hx Anesthesia: Yes Hx Anesthesia Reactions: No Hx Malignant Hyperthermia: No Meds Allergies/Adverse Reactions: Allergies Allergy/AdvReac Type Severity Reaction Status Date / Time No Known Allergies Allergy Verified 07/02/18 17:19 - Medications Medications: Current Medications Pantoprazole Sodium (Protonix Ec Tab) 40 mg PO DAILY [facility] Last Admin: 07/04/18 11:07 Dose: 40 mg Physical Exam - Constitutional Appears: Non-toxic, In Acute Distress (anxious), Chronically Ill - Head Exam Head Exam: NORMAL INSPECTION (multiple bruises) - Eye Exam Eye Exam: Normal appearance, PERRL - ENT Exam ENT Exam: Mucous Membranes Moist, Normal Exam - Neck Exam Neck exam: Positive for: Normal Inspection - Respiratory Exam Respiratory Exam: Clear to Auscultation Bilateral, NORMAL BREATHING PATTERN - Cardiovascular Exam Cardiovascular Exam: REGULAR RHYTHM, RRR - GI/Abdominal Exam GI & Abdominal Exam: Normal Bowel Sounds, Soft - Neurological Exam Neurological exam: Altered, Normal Gait - Psychiatric Exam Psychiatric exam: Agitated, Anxious - Skin Skin Exam: Normal Color, Warm Results - Vital Signs Recent Vital Signs: Last Vital Signs Temp 98.0 F 07/04/18 07:46 Pulse 75 07/04/18 07:46 Resp 20 07/04/18 07:46 BP 107/57 L 07/04/18 07:46 Pulse Ox 96 07/04/18 07:46 - Labs Result Diagrams: 07/02/18 17:38 07/02/18 17:38 Labs: Laboratory Results - last 24 hr 07/03/18 07/03/18 07/03/18 11:35 15:55 22:18 POC Glucose (mg/dL) 179 H 122 H 108 Assessment & Plan (1) Concussion with no loss of consciousness Status: Acute (2) ESRD (end stage renal disease) Status: Acute (3) Subarachnoid hemorrhage after traumatic injury without open intracranial wound, with prolonged loss of consciousness without return to pre-existing level of consciousness Status: Acute (4) Anemia Status: Acute (5) Diabetes mellitus Status: Acute - Assessment and Plan (Free Text) Assessment: hd today, avoid drop in bp, gentle uf neuro eval ?drug use. consider psych eval. no antihypertensives hgb acceptable
--- NOTE | 2018-07-04 18:38 | CP.PCM.PN ---
Subjective - Date & Time of Evaluation Date of Evaluation: 07/04/18 Time of Evaluation: 18:38 - Subjective Subjective: PGY-2 Progress Note: Dr. Guille Curtis's Service Patient seen and examined at bedside .Per nursing no acute events occurred overnight. Patient reports a little headache. Patient also reports some gait instability during today's examination . Patient denies any chest pain, fevers, chills, palpitations, syncopal episodes, headaches, or any other complaints. This patient is a 57 year old male with a PMHx of MD s/p 3 stents, Systolic CHF , HIV, Diabetes, Hypertension, ESRD (, Tuesday) Dialysis who presented to the ED with complaints of chest pain, full body weakness, and inability to talk. Patient states around 7:30 last night, he was carrying laundry on the street when his body suddenly went limp and he was unable to talk. The patient fell and admits to hitting his head. Per patient's friend at bedside, she saw him hunched over on the street and called the ambulance. He denies any fever, chills, chest pain, SOB, vision changes, focal motor weakness, sensory loss, auditory/visual hallucinations, suicidal/homicidal ideation. Patient put on 1: 1 because he was attempting to elope. PMHx: As stated above PSHx: Defibrillator (2013), Abdominal Surgery (2010) Allergies: NKDA SocialHx: Admits to 3-6 cigarettes a day for "many years" (Currently does not smoke), States he has not had alcoholic beverage for 30 years, Denies illicit drug use FamHx: Esophageal CA (Father) Meds: Patient unsure of the name of medications and name of pharmacy. Will ask again . Objective - Vital Signs/Intake and Output Vital Signs (last 24 hours): Temp Pulse Resp BP Pulse Ox 97.6 F 55 L 15 112/72 96 07/04/18 14:45 07/04/18 17:30 07/04/18 17:30 07/04/18 17:30 07/04/18 17:30 Intake and Output: 07/04/18 07/04/18 06:59 18:59 Intake Total 250 200 Output Total 0 Balance 250 200 - Medications Medications: Current Medications Pantoprazole Sodium (Protonix Ec Tab) 40 mg PO DAILY [facility] Last Admin: 07/04/18 11:07 Dose: 40 mg - Labs Labs: 07/02/18 17:38 07/02/18 17:38 PT 13.2 SECONDS (9.7-12.2) H 07/02/18 17:38 INR 1.2 07/02/18 17:38 APTT 34 SECONDS (21-34) 07/02/18 17:38 - Head Exam Head Exam: NORMAL INSPECTION Additional comments: Contusion on left superior brow - Eye Exam Eye Exam: EOMI, Normal appearance, PERRL Pupil Exam: NORMAL ACCOMODATION - ENT Exam ENT Exam: Mucous Membranes Moist, Normal Oropharynx - Respiratory Exam Respiratory Exam: Clear to Ausculation Bilateral, NORMAL BREATHING PATTERN - Cardiovascular Exam Cardiovascular Exam: REGULAR RHYTHM, +S1, +S2 - GI/Abdominal Exam GI & Abdominal Exam: Soft, Normal Bowel Sounds - Extremities Exam Extremities Exam: absent: Pedal Edema - Back Exam Back Exam: NORMAL INSPECTION. absent: paraspinal tenderness - Neurological Exam Neurological Exam: Alert, Awake, CN II-XII Intact, Oriented x3 - Psychiatric Exam Psychiatric exam: Normal Affect, Normal Mood - Skin Skin Exam: Dry, Intact, Normal Color Assessment and Plan - Assessment and Plan (Free Text) Assessment: 57 year old male with a PMHx of MD s/p 3 stents, Systolic CHF, HIV, Diabetes, Hypertension, ESRD (, Tuesday) Dialysis who presented to the ED with complaints of chest pain, full body weakness, and inability to talk. Plan: 1. Subarachnoid Hemorrhage of Right Parietal lobe. CT Head w/o contrast (Adm) :Trace right parietal subarachnoid hemorrhage with no mass effect. Stable, trace diffuse cerebral atrophy. Tiny chronic lacune left thalamus. CT Head w/o contrast (07/03/18): :Persistent subarachnoid hemorrhage in the right parietal lobe, similar to the prior study. If symptoms persist, consider correlation with MRI. Neurology Dr. Darnell Consulted :Hold all blood thinners :Blood Pressure Control :Correct metabolic Abnormalities :Erwin order CT Head w/o Contrast for tomorrow morning (07/04/18) :MRI Brain w/o Contrast for tomorrow afternoon. (07/04/18) :NeuroSurgery Consulted (Dr. Ray). Recs appreciated :EEG Neurosurgery Dr. Ray consulted. Help appreciated 2. HIV -Last viral load: Undetectable -Patient states he gets medications from [facility] in [place] ([phone]). Call was made however unable to reach Pharmacist. Will try again in the A.M. 3. Diabetes -ISS Low -Hypoglycemic Protocol -Carb consistent diet -Accuchecks ACHS 4.Hypertension -See Plan #2 5.ESRD -Nephrology consulted. Help appreciated -Expected to have Hemodialysis today. PPX: Protonix SCD's All managment per Dr. Guille Curtis
[2018-07-04] MEDS ORDERED: Dextrose 50% SYRINGE Inj (50 ml) IV PRN (19:05)
--- NOTE | 2018-07-04 20:40 | CP.PCM.PN ---
Subjective - Date & Time of Evaluation Date of Evaluation: 07/04/18 Time of Evaluation: 11:20 - Subjective Subjective: clinically same Objective - Vital Signs/Intake and Output Vital Signs (last 24 hours): Temp Pulse Resp BP Pulse Ox 97.6 F 99 H 18 124/82 98 07/04/18 14:45 07/04/18 19:00 07/04/18 18:15 07/04/18 18:15 07/04/18 18:15 Intake and Output: 07/04/18 07/05/18 18:59 06:59 Intake Total 200 Balance 200 - Medications Medications: Current Medications Dextrose (Dextrose 50% Inj) 0 ml IV STAT PRN; Protocol PRN Reason: Hypoglycemia Protocol Dextrose (Glutose 15) 0 gm PO ONCE PRN; Protocol PRN Reason: Hypoglycemia Protocol Insulin Human Regular (Novolin R) 0 unit SC ACHS [facility] PRN Reason: Protocol Pantoprazole Sodium (Protonix Ec Tab) 40 mg PO DAILY [facility] Last Admin: 07/04/18 11:07 Dose: 40 mg - Labs Labs: 07/02/18 17:38 07/02/18 17:38 PT 13.2 SECONDS (9.7-12.2) H 07/02/18 17:38 INR 1.2 07/02/18 17:38 APTT 34 SECONDS (21-34) 07/02/18 17:38 - Constitutional Appears: Well - Head Exam Head Exam: ATRAUMATIC, NORMAL INSPECTION, NORMOCEPHALIC - Eye Exam Eye Exam: EOMI, Normal appearance, PERRL Pupil Exam: NORMAL ACCOMODATION, PERRL - ENT Exam ENT Exam: Mucous Membranes Moist, Normal Exam - Neck Exam Neck Exam: Full ROM, Normal Inspection. absent: Lymphadenopathy - Respiratory Exam Respiratory Exam: Decreased Breath Sounds - Cardiovascular Exam Cardiovascular Exam: REGULAR RHYTHM, +S1, +S2 - GI/Abdominal Exam GI & Abdominal Exam: Soft, Diminished Bowel Sounds - Rectal Exam Rectal Exam: Deferred
[2018-07-04] MEDS: (Novolin R) Insulin Human Regular 100 units/ml vial SC SCH (21:39)
[2018-07-04 23:20] LABS: IRON 61 ug/dL (49-181)
[2018-07-04 23:35] LABS: % IRON SATURATION 21 (20-55); TOTAL IRON BINDING CAPACITY 285 ug/dL (250-450)
[2018-07-05] MEDS: Pantoprazole 40 mg EC Tab PO SCH ×2 (04:52→09:27)
--- NOTE | 2018-07-05 07:30 | CP.PCM.PN ---
Subjective - Date & Time of Evaluation Date of Evaluation: 07/05/18 Time of Evaluation: 07:28 - Subjective Subjective: Mr. Peck was seen and examined at the bedside. He is more alert, oriented , but slow to answer questions. He denies any headache, dizziness, blurred vision. He further claims of feeling better in comparison from previous examination. He is able to follow all commands, but remains on 1:1 sitter for patient safety ( attempts to elope). There was no untoward events overnight. Objective - Vital Signs/Intake and Output Vital Signs (last 24 hours): Temp Pulse Resp BP Pulse Ox 98.3 F 81 20 130/81 98 07/04/18 23:10 07/04/18 23:10 07/04/18 23:10 07/04/18 23:10 07/05/18 03:40 Intake and Output: 07/05/18 07/05/18 06:59 18:59 Intake Total 100 Balance 100 - Medications Medications: Current Medications Dextrose (Dextrose 50% Inj) 0 ml IV STAT PRN; Protocol PRN Reason: Hypoglycemia Protocol Dextrose (Glutose 15) 0 gm PO ONCE PRN; Protocol PRN Reason: Hypoglycemia Protocol Insulin Human Regular (Novolin R) 0 unit SC ACHS [facility] PRN Reason: Protocol Last Admin: 07/04/18 21:39 Dose: Not Given Pantoprazole Sodium (Protonix Ec Tab) 40 mg PO DAILY [facility] Last Admin: 07/05/18 04:52 Dose: 40 mg - Labs Labs: 07/02/18 17:38 07/02/18 17:38 PT 13.2 SECONDS (9.7-12.2) H 07/02/18 17:38 INR 1.2 07/02/18 17:38 APTT 34 SECONDS (21-34) 07/02/18 17:38 - Constitutional Appears: No Acute Distress - Head Exam Head Exam: NORMAL INSPECTION Additional comments: healing facial abrasion - Eye Exam Pupil Exam: PERRL - Neurological Exam Neurological Exam: Alert, Awake, Oriented x3 Neuro motor strength exam: Left Upper Extremity: 5, Right Upper Extremity: 5, Left Lower Extremity: 5, Right Lower Extremity: 5 Additional comments: neurological improved in comparison from previous examination. Assessment and Plan (1) Subarachnoid hemorrhage after traumatic injury without open intracranial wound, with prolonged loss of consciousness without return to pre-existing level of consciousness Assessment & Plan: Continue all current medical regimen. Pending EEG results. Recommend to treat any electrolyte abnormalities, MRI is not possible due to patient's defibrillator and unable to verify if it is MRI compatible. Status: Acute
[2018-07-05] MEDS: (Novolin R) Insulin Human Regular 100 units/ml vial SC SCH ×4 (07:31→22:50)
[2018-07-05 08:43] LABS: BASO % 0.3 % (0.0-2.0); EOS % 0.7 % (0.0-4.0); HEMOGLOBIN 10.6 g/dL (12.0-18.0); LYMPH # 0.8 K/uL (1.0-4.3); LYMPH % 11.7 % (20.0-40.0); MEAN CELL VOLUME 93.2 fL (80.0-94.0); MEAN CORPUSCULAR HEMOGLOBIN 32.5 pg (27.0-31.0); MEAN CORPUSCULAR HGB CONC 34.9 g/dL (33.0-37.0); MONO # 0.5 K/uL (0.0-0.8); MONO % 6.5 % (0.0-10.0); NEUT # 5.8 K/uL (1.8-7.0); NEUT % 80.8 % (50.0-75.0); RBC 3.25 Mil/uL (4.40-5.90); RED CELL DISTRIBUTION WIDTH 15.3 % (11.5-14.5); WHITE BLOOD COUNT 7.1 K/uL (4.8-10.8)
[2018-07-05 09:02] LABS: ALBUMIN 4.5 g/dL (3.5-5.0); CALCIUM 9.8 mg/dl (8.6-10.4)
--- NOTE | 2018-07-05 09:44 | CP.PCM.PN ---
Subjective - Date & Time of Evaluation Date of Evaluation: 07/05/18 Time of Evaluation: 07:00 - Subjective Subjective: PGY2- Progress Note for Dr. Curtis Patient seen and examined at bedside. Patient says he has no pain. Patient says he feels fine and denies any headache, dizziness, chest pain, shortness of breath, abdominal pain, nausea, vomiting, diarrhea, or constipation. Home meds as per pharmacy: Crestor 10mg po daily, Alprazolam 2mg po TID, Asmanex , Losartan 25mg po tid, Gabapentin 300mg po tid HIV meds: Prezista 800mg po daily, Isentress 400mg po BID, Ritonavir 100mg po daily ASA 81mg po daily Metoprolol Succ 50 mg qid? Objective - Vital Signs/Intake and Output Vital Signs (last 24 hours): Temp Pulse Resp BP Pulse Ox 98.3 F 71 20 132/77 97 07/05/18 07:10 07/05/18 07:53 07/05/18 07:10 07/05/18 07:10 07/05/18 07:10 Intake and Output: 07/05/18 07/05/18 06:59 18:59 Intake Total 100 Balance 100 - Medications Medications: Current Medications Dextrose (Dextrose 50% Inj) 0 ml IV STAT PRN; Protocol PRN Reason: Hypoglycemia Protocol Dextrose (Glutose 15) 0 gm PO ONCE PRN; Protocol PRN Reason: Hypoglycemia Protocol Insulin Human Regular (Novolin R) 0 unit SC ACHS [facility] PRN Reason: Protocol Last Admin: 07/05/18 07:31 Dose: Not Given Pantoprazole Sodium (Protonix Ec Tab) 40 mg PO DAILY [facility] Last Admin: 07/05/18 09:27 Dose: 40 mg - Labs Labs: 07/05/18 08:34 07/05/18 08:34 PT 13.2 SECONDS (9.7-12.2) H 07/02/18 17:38 INR 1.2 07/02/18 17:38 APTT 34 SECONDS (21-34) 07/02/18 17:38 - Additional Findings Additional findings: - Head Exam Head Exam: NORMAL INSPECTION Additional comments: Contusion on left superior brow - Eye Exam Eye Exam: EOMI, Normal appearance, PERRL Pupil Exam: NORMAL ACCOMODATION - ENT Exam ENT Exam: Mucous Membranes Moist, Normal Oropharynx - Respiratory Exam Respiratory Exam: Clear to Ausculation Bilateral, NORMAL BREATHING PATTERN - Cardiovascular Exam Cardiovascular Exam: REGULAR RHYTHM, +S1, +S2 - GI/Abdominal Exam GI & Abdominal Exam: Soft, Normal Bowel Sounds - Extremities Exam Extremities Exam: absent: Pedal Edema - Back Exam Back Exam: NORMAL INSPECTION. absent: paraspinal tenderness - Neurological Exam Neurological Exam: Alert, Awake, CN II-XII Intact, Oriented x3 - Psychiatric Exam Psychiatric exam: Normal Affect, Normal Mood - Skin Skin Exam: Dry, Intact, Normal Color Assessment and Plan - Assessment and Plan (Free Text) Assessment: 57 year old male with a PMHx of [place] s/p 3 stents, Systolic CHF, HIV, Diabetes, Hypertension, ESRD (, Tuesday) Dialysis who presented to the ED with complaints of chest pain, full body weakness, and inability to talk. Plan: 1. Subarachnoid Hemorrhage of Right Parietal lobe. repeat head CT ordered on 07/05 CT Head w/o contrast (Adm) :Trace right parietal subarachnoid hemorrhage with no mass effect. Stable, trace diffuse cerebral atrophy. Tiny chronic lacune left thalamus. CT Head w/o contrast (07/03/18): :Persistent subarachnoid hemorrhage in the right parietal lobe, similar to the prior study. If symptoms persist, consider correlation with MRI. Neurology Dr. Darnell Consulted :Hold all blood thinners :Blood Pressure Control :Correct metabolic Abnormalities :MRI Brain w/o Contrast for tomorrow afternoon could not be done secondary to defibrillator, unknown if defibrillator is MRI compatible :NeuroSurgery Consulted (Dr. Ray). Recs appreciated :f/u EEG results Neurosurgery Dr. Ray consulted. Help appreciated 2. HIV -Last viral load: Undetectable -HIV home meds: Prezista 800mg po daily, Isentress 400mg po BID, Ritonavir 100mg po daily 3. Diabetes -ISS Low -Hypoglycemic Protocol -Carb consistent diet -Accuchecks ACHS 4.Hypertension -patient's blood pressure stable -will not restart home meds -continue to monitor 5.ESRD -dialysis , , -Nephrology consulted. Help appreciated -hemodialysis yesterday 6. Anemia -Stable -Anemia panel ordered. Will f/u with results. -Will monitor with serial cbc's. 7. HLD restart home med Crestor 10mg po HS PPX: Protonix SCD's All management per Dr. Guille Curtis
--- NOTE | 2018-07-05 12:37 | CP.PCM.PN ---
Subjective - Date & Time of Evaluation Date of Evaluation: 07/05/18 Time of Evaluation: 11:40 - Subjective Subjective: clinically same Objective - Vital Signs/Intake and Output Vital Signs (last 24 hours): Temp Pulse Resp BP Pulse Ox 98.3 F 71 20 132/77 97 07/05/18 07:10 07/05/18 07:53 07/05/18 07:10 07/05/18 07:10 07/05/18 07:10 Intake and Output: 07/05/18 07/05/18 06:59 18:59 Intake Total 100 Balance 100 - Medications Medications: Current Medications Dextrose (Dextrose 50% Inj) 0 ml IV STAT PRN; Protocol PRN Reason: Hypoglycemia Protocol Dextrose (Glutose 15) 0 gm PO ONCE PRN; Protocol PRN Reason: Hypoglycemia Protocol Insulin Human Regular (Novolin R) 0 unit SC ACHS [facility] PRN Reason: Protocol Last Admin: 07/05/18 12:12 Dose: 1 unit Pantoprazole Sodium (Protonix Ec Tab) 40 mg PO DAILY [facility] Last Admin: 07/05/18 09:27 Dose: 40 mg - Labs Labs: 07/05/18 08:34 07/05/18 08:34 PT 13.2 SECONDS (9.7-12.2) H 07/02/18 17:38 INR 1.2 07/02/18 17:38 APTT 34 SECONDS (21-34) 07/02/18 17:38
--- NOTE | 2018-07-05 13:34 | CP.PCM.PN ---
Subjective - Date & Time of Evaluation Date of Evaluation: 07/05/18 Time of Evaluation: 13:31 - Subjective Subjective: stable dialysis 07/[address] head shows subarachnoid hemorrhage Wants to go home- await neuro follow up Objective - Vital Signs/Intake and Output Vital Signs (last 24 hours): Temp Pulse Resp BP Pulse Ox 98.3 F 71 20 132/77 97 07/05/18 07:10 07/05/18 07:53 07/05/18 07:10 07/05/18 07:10 07/05/18 07:10 Intake and Output: 07/05/18 07/05/18 06:59 18:59 Intake Total 100 Balance 100 - Medications Medications: Current Medications Dextrose (Dextrose 50% Inj) 0 ml IV STAT PRN; Protocol PRN Reason: Hypoglycemia Protocol Dextrose (Glutose 15) 0 gm PO ONCE PRN; Protocol PRN Reason: Hypoglycemia Protocol Insulin Human Regular (Novolin R) 0 unit SC ACHS [facility] PRN Reason: Protocol Last Admin: 07/05/18 12:12 Dose: 1 unit Pantoprazole Sodium (Protonix Ec Tab) 40 mg PO DAILY [facility] Last Admin: 07/05/18 09:27 Dose: 40 mg - Labs Labs: 07/05/18 08:34 07/05/18 08:34 PT 13.2 SECONDS (9.7-12.2) H 07/02/18 17:38 INR 1.2 07/02/18 17:38 APTT 34 SECONDS (21-34) 07/02/18 17:38 - Constitutional Appears: No Acute Distress, Confused, Chronically Ill - Head Exam Head Exam: ATRAUMATIC, NORMAL INSPECTION - Eye Exam Eye Exam: EOMI, Normal appearance - Neck Exam Neck Exam: Normal Inspection. absent: Tenderness - Respiratory Exam Respiratory Exam: Clear to Ausculation Bilateral, NORMAL BREATHING PATTERN - Cardiovascular Exam Cardiovascular Exam: REGULAR RHYTHM, +S1 - GI/Abdominal Exam GI & Abdominal Exam: Soft. absent: Tenderness - Extremities Exam Extremities Exam: Normal Inspection. absent: Tenderness - Neurological Exam Neurological Exam: Awake, CN II-XII Intact - Skin Skin Exam: Dry, Warm Assessment and Plan (1) ESRD (end stage renal disease) Status: Acute (2) Subarachnoid hemorrhage after traumatic injury without open intracranial wound, with prolonged loss of consciousness without return to pre-existing level of consciousness Status: Acute - Assessment and Plan (Free Text) Plan: same dialysis TTS same meds await neuro follow up for subarachnoid bleed
--- NOTE | 2018-07-05 18:00 | CT ---
Date of service: 07/05/2018 PROCEDURE: CT HEAD WITHOUT CONTRAST. HISTORY: monitor subarachnoid hemorrhage COMPARISON: 07/02/2018. TECHNIQUE: Axial computed tomography images were obtained through the head/brain without intravenous contrast. Radiation dose: Total exam DLP = 879.18 mGy-cm. This CT exam was performed using one or more of the following dose reduction techniques: Automated exposure control, adjustment of the mA and/or kV according to patient size, and/or use of iterative reconstruction technique. FINDINGS: HEMORRHAGE: Interval near complete resolution of small right parietal subarachnoid hemorrhage. BRAIN: Ferrara-white matter differentiation is preserved. Old lacunar infarction in the left basal ganglia. There is no mass, mass effect or abnormal extra-axial fluid collection. There is no territorial infarction. The midline sagittal structures are normal. VENTRICLES: There is mild age-related global parenchymal volume loss and proportionate enlargement of the ventricles and cortical sulci. CALVARIUM: There is no calvarial fracture or extracranial soft tissue swelling. PARANASAL SINUSES: Predominantly clear. MASTOID AIR CELLS: Predominantly clear. OTHER FINDINGS: None. IMPRESSION: Interval near complete resolution of small right parietal subarachnoid hemorrhage. No new hemorrhage. Mild age-related global parenchymal volume loss an old lacunar infarction in the left basal ganglia.
[2018-07-06 06:36] LABS: BASO % 0.4 % (0.0-2.0); EOS # 0.1 K/uL (0.0-0.7); EOS % 1.7 % (0.0-4.0); HEMOGLOBIN 10.3 g/dL (12.0-18.0); LYMPH # 1.4 K/uL (1.0-4.3); LYMPH % 20.7 % (20.0-40.0); MEAN CELL VOLUME 92.4 fL (80.0-94.0); MEAN CORPUSCULAR HEMOGLOBIN 32.3 pg (27.0-31.0); MEAN PLATELET VOLUME 8.9 fL (7.2-11.7); MONO # 0.6 K/uL (0.0-0.8); MONO % 8.7 % (0.0-10.0); NEUT # 4.7 K/uL (1.8-7.0); NEUT % 68.5 % (50.0-75.0); RBC 3.19 Mil/uL (4.40-5.90); RED CELL DISTRIBUTION WIDTH 14.9 % (11.5-14.5); WHITE BLOOD COUNT 6.9 K/uL (4.8-10.8)
--- NOTE | 2018-07-06 07:02 | CP.PCM.PN ---
Subjective - Date & Time of Evaluation Date of Evaluation: 07/06/18 Time of Evaluation: 06:59 - Subjective Subjective: Mr. Peck was seen and examined at the bedside. He is alert, oriented x 3. He denies any headache, dizziness, blurred vision. He is able to move all extremities spontaneously. He request to be discharge. He remains on 1:1 sitter for patient safety. Repeat CTH showed Interval near complete resolution of small right parietal subarachnoid hemorrhage. No new hemorrhage. Mild age- related global parenchymal volume loss an old lacunar infarction in the left basal ganglia. There was no untoward events overnight. Objective - Vital Signs/Intake and Output Vital Signs (last 24 hours): Temp Pulse Resp BP Pulse Ox 98.6 F 70 20 137/83 97 07/05/18 23:10 07/05/18 23:30 07/05/18 23:10 07/05/18 23:10 07/05/18 23:10 - Medications Medications: Current Medications Darunavir (Prezista) 800 mg PO DAILY [facility] PRN Reason: Protocol Last Admin: 07/05/18 18:22 Dose: 800 mg Dextrose (Dextrose 50% Inj) 0 ml IV STAT PRN; Protocol PRN Reason: Hypoglycemia Protocol Dextrose (Glutose 15) 0 gm PO ONCE PRN; Protocol PRN Reason: Hypoglycemia Protocol Insulin Human Regular (Novolin R) 0 unit SC ACHS [facility] PRN Reason: Protocol Last Admin: 07/05/18 22:50 Dose: Not Given Pantoprazole Sodium (Protonix Ec Tab) 40 mg PO DAILY [facility] Last Admin: 07/05/18 09:27 Dose: 40 mg Raltegravir (Isentress) 400 mg PO BID [facility] PRN Reason: Protocol Last Admin: 07/05/18 18:22 Dose: 400 mg Ritonavir (Norvir) 100 mg PO DAILY [facility] PRN Reason: Protocol Last Admin: 07/05/18 18:21 Dose: 100 mg Rosuvastatin Calcium (Crestor) 10 mg PO HS [facility] Last Admin: 07/05/18 22:36 Dose: 10 mg - Labs Labs: 07/06/18 06:21 07/05/18 08:34 PT 13.2 SECONDS (9.7-12.2) H 07/02/18 17:38 INR 1.2 07/02/18 17:38 APTT 34 SECONDS (21-34) 07/02/18 17:38 - Constitutional Appears: No Acute Distress - Head Exam Head Exam: NORMAL INSPECTION Additional comments: healing facial abrasion - Eye Exam Pupil Exam: Fixed, PERRL - Neurological Exam Neurological Exam: Alert, Awake, Oriented x3 Neuro motor strength exam: Left Upper Extremity: 5, Right Upper Extremity: 5, Left Lower Extremity: 5, Right Lower Extremity: 5 Additional comments: neurological unchanged from previous examination. Assessment and Plan (1) Subarachnoid hemorrhage after traumatic injury without open intracranial wound, with prolonged loss of consciousness without return to pre-existing level of consciousness Assessment & Plan: Continue all current medical regimen. Pending EEG results. Recommend to treat any electrolyte abnormalities, if EEG is normal and repeat CTH showed the subarachnoid hemorrhage is nearly resolving with no new hemorrhage, may discharge to home pending primary evaluation. Follow up with neurologist upon discharge to monitor subarachnoid hemorrhage. Status: Acute
[2018-07-06 07:38] LABS: ALB/GLOB RATIO 1.2 (1.0-2.1); ALBUMIN 4.4 g/dL (3.5-5.0); CALCIUM 9.7 mg/dl (8.6-10.4)
[2018-07-06] MEDS: (Novolin R) Insulin Human Regular 100 units/ml vial SC SCH ×5 (07:52→21:17)
--- NOTE | 2018-07-06 09:52 | CP.PCM.PN ---
Subjective - Date & Time of Evaluation Date of Evaluation: 07/06/18 Time of Evaluation: 09:50 - Subjective Subjective: Seen at dialysis Has been alert; feels better c/o constipation Repeat CT head shows resolving subarachnoid bleed Neuro note appreciated Metabolic factors have been optimized Objective - Vital Signs/Intake and Output Vital Signs (last 24 hours): Temp Pulse Resp BP Pulse Ox 97.6 F 88 16 132/52 L 98 07/06/18 09:10 07/06/18 09:10 07/06/18 09:10 07/06/18 09:24 07/06/18 09:10 - Medications Medications: Current Medications Darunavir (Prezista) 800 mg PO DAILY [facility] PRN Reason: Protocol Last Admin: 07/05/18 18:22 Dose: 800 mg Dextrose (Dextrose 50% Inj) 0 ml IV STAT PRN; Protocol PRN Reason: Hypoglycemia Protocol Dextrose (Glutose 15) 0 gm PO ONCE PRN; Protocol PRN Reason: Hypoglycemia Protocol Insulin Human Regular (Novolin R) 0 unit SC ACHS [facility] PRN Reason: Protocol Last Admin: 07/06/18 07:52 Dose: Not Given Pantoprazole Sodium (Protonix Ec Tab) 40 mg PO DAILY [facility] Last Admin: 07/05/18 09:27 Dose: 40 mg Raltegravir (Isentress) 400 mg PO BID [facility] PRN Reason: Protocol Last Admin: 07/05/18 18:22 Dose: 400 mg Ritonavir (Norvir) 100 mg PO DAILY [facility] PRN Reason: Protocol Last Admin: 07/05/18 18:21 Dose: 100 mg Rosuvastatin Calcium (Crestor) 10 mg PO HS [facility] Last Admin: 07/05/18 22:36 Dose: 10 mg - Labs Labs: 07/06/18 06:21 07/06/18 06:21 PT 13.2 SECONDS (9.7-12.2) H 07/02/18 17:38 INR 1.2 07/02/18 17:38 APTT 34 SECONDS (21-34) 07/02/18 17:38 - Constitutional Appears: No Acute Distress, Chronically Ill - Head Exam Head Exam: ATRAUMATIC, NORMAL INSPECTION - Eye Exam Eye Exam: EOMI, Normal appearance - Neck Exam Neck Exam: Normal Inspection. absent: Tenderness - Respiratory Exam Respiratory Exam: Clear to Ausculation Bilateral, NORMAL BREATHING PATTERN - Cardiovascular Exam Cardiovascular Exam: REGULAR RHYTHM, +S1 - GI/Abdominal Exam GI & Abdominal Exam: Soft. absent: Tenderness - Extremities Exam Extremities Exam: Normal Inspection. absent: Tenderness - Neurological Exam Neurological Exam: Alert, CN II-XII Intact - Skin Skin Exam: Dry, Warm Assessment and Plan (1) ESRD (end stage renal disease) Status: Acute (2) Subarachnoid bleed Status: Acute - Assessment and Plan (Free Text) Plan: Neuro follow up and disposition Dialysis TTS lactulose
--- NOTE | 2018-07-06 12:10 | CP.PCM.PN ---
Subjective - Date & Time of Evaluation Date of Evaluation: 07/06/18 Time of Evaluation: 12:09 - Subjective Subjective: not notified about this consult found it on ly list just now SAH appears to have resoved no indication for intervention Objective - Vital Signs/Intake and Output Vital Signs (last 24 hours): Temp Pulse Resp BP Pulse Ox 97.6 F 88 16 139/89 98 07/06/18 09:10 07/06/18 09:10 07/06/18 09:10 07/06/18 11:54 07/06/18 09:10 - Medications Medications: Current Medications Darunavir (Prezista) 800 mg PO DAILY [facility] PRN Reason: Protocol Last Admin: 07/05/18 18:22 Dose: 800 mg Dextrose (Dextrose 50% Inj) 0 ml IV STAT PRN; Protocol PRN Reason: Hypoglycemia Protocol Dextrose (Glutose 15) 0 gm PO ONCE PRN; Protocol PRN Reason: Hypoglycemia Protocol Insulin Human Regular (Novolin R) 0 unit SC ACHS [facility] PRN Reason: Protocol Last Admin: 07/06/18 07:52 Dose: Not Given Pantoprazole Sodium (Protonix Ec Tab) 40 mg PO DAILY [facility] Last Admin: 07/05/18 09:27 Dose: 40 mg Raltegravir (Isentress) 400 mg PO BID [facility] PRN Reason: Protocol Last Admin: 07/05/18 18:22 Dose: 400 mg Ritonavir (Norvir) 100 mg PO DAILY [facility] PRN Reason: Protocol Last Admin: 07/05/18 18:21 Dose: 100 mg Rosuvastatin Calcium (Crestor) 10 mg PO HS [facility] Last Admin: 07/05/18 22:36 Dose: 10 mg - Labs Labs: 07/06/18 06:21 07/06/18 06:21 PT 13.2 SECONDS (9.7-12.2) H 07/02/18 17:38 INR 1.2 07/02/18 17:38 APTT 34 SECONDS (21-34) 07/02/18 17:38
[2018-07-06] MEDS: Pantoprazole 40 mg EC Tab PO SCH (13:06)
[2018-07-06 13:20] VITALS: RESP 20
--- NOTE | 2018-07-06 14:41 | CP.PCM.PN ---
Subjective - Date & Time of Evaluation Date of Evaluation: 07/06/18 Time of Evaluation: 13:00 - Subjective Subjective: PGY2- Progress note for Dr. Curtis Patient seen and examined at bedside after dialysis. Patient vomited once and says is not feeling well. He denies any headaches, dizziness, fevers, chills, chest pain, diarrhea, or constipation. Objective - Vital Signs/Intake and Output Vital Signs (last 24 hours): Temp Pulse Resp BP Pulse Ox 98.0 F 112 H 20 142/87 98 07/06/18 13:19 07/06/18 13:19 07/06/18 13:19 07/06/18 13:19 07/06/18 13:19 - Medications Medications: Current Medications Darunavir (Prezista) 800 mg PO DAILY [facility] PRN Reason: Protocol Last Admin: 07/06/18 13:06 Dose: 800 mg Dextrose (Dextrose 50% Inj) 0 ml IV STAT PRN; Protocol PRN Reason: Hypoglycemia Protocol Dextrose (Glutose 15) 0 gm PO ONCE PRN; Protocol PRN Reason: Hypoglycemia Protocol Insulin Human Regular (Novolin R) 0 unit SC ACHS [facility] PRN Reason: Protocol Last Admin: 07/06/18 12:59 Dose: Not Given Pantoprazole Sodium (Protonix Ec Tab) 40 mg PO DAILY [facility] Last Admin: 07/06/18 13:06 Dose: 40 mg Raltegravir (Isentress) 400 mg PO BID [facility] PRN Reason: Protocol Last Admin: 07/06/18 13:06 Dose: 400 mg Ritonavir (Norvir) 100 mg PO DAILY [facility] PRN Reason: Protocol Last Admin: 07/06/18 13:06 Dose: 100 mg Rosuvastatin Calcium (Crestor) 10 mg PO HS [facility] Last Admin: 07/05/18 22:36 Dose: 10 mg - Labs Labs: 07/06/18 06:21 07/06/18 06:21 PT 13.2 SECONDS (9.7-12.2) H 07/02/18 17:38 INR 1.2 07/02/18 17:38 APTT 34 SECONDS (21-34) 07/02/18 17:38 - Additional Findings Additional findings: - Head Exam Head Exam: NORMAL INSPECTION Additional comments: Contusion on left superior brow - Eye Exam Eye Exam: EOMI, Normal appearance, PERRL Pupil Exam: NORMAL ACCOMODATION - ENT Exam ENT Exam: Mucous Membranes Moist, Normal Oropharynx - Respiratory Exam Respiratory Exam: Clear to Ausculation Bilateral, NORMAL BREATHING PATTERN - Cardiovascular Exam Cardiovascular Exam: REGULAR RHYTHM, +S1, +S2 - GI/Abdominal Exam GI & Abdominal Exam: Soft, Normal Bowel Sounds - Extremities Exam Extremities Exam: absent: Pedal Edema - Back Exam Back Exam: NORMAL INSPECTION. absent: paraspinal tenderness - Neurological Exam Neurological Exam: Alert, Awake, CN II-XII Intact, Oriented x3 - Psychiatric Exam Psychiatric exam: Normal Affect, Normal Mood - Skin Skin Exam: Dry, Intact, Normal Color Assessment and Plan - Assessment and Plan (Free Text) Assessment: 57 year old male with a PMHx of [place] s/p 3 stents, Systolic CHF, HIV, Diabetes, Hypertension, ESRD (, Tuesday) Dialysis who presented to the ED with complaints of chest pain, full body weakness, and inability to talk. Plan: 1. Subarachnoid Hemorrhage of Right Parietal lobe. repeat head CT ordered on 07/05: CT Head w/o contrast (Adm) interval near complete resolution of small right parietal subarachnoid hemorrhage. No new hemorrhage. 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 :Trace right parietal subarachnoid hemorrhage with no mass effect. Stable, trace diffuse cerebral atrophy. Tiny chronic lacune left thalamus. CT Head w/o contrast (07/03/18): :Persistent subarachnoid hemorrhage in the right parietal lobe, similar to the prior study. If symptoms persist, consider correlation with MRI. Neurology Dr. Darnell Consulted :Hold all blood thinners :Blood Pressure Control :Correct metabolic Abnormalities :MRI Brain w/o Contrast for tomorrow afternoon could not be done secondary to defibrillator, unknown if defibrillator is MRI compatible :NeuroSurgery Consulted (Dr. Ray). Recs appreciated :f/u EEG results Neurosurgery Dr. Ray consulted. Help appreciated 2. HIV -Last viral load: Undetectable -HIV home meds: Prezista 800mg po daily, Isentress 400mg po BID, Ritonavir 100mg po daily 3. Diabetes -ISS Low -Hypoglycemic Protocol -Carb consistent diet -Accuchecks ACHS 4.Hypertension -patient's blood pressure stable -will not restart home meds -continue to monitor 5.ESRD -dialysis T, Th, S -Nephrology consulted. Help appreciated -hemodialysis yesterday 6. Anemia -Stable -Anemia panel ordered. Will f/u with results. -Will monitor with serial cbc's. 7. HLD home med Crestor 10mg po HS 8. CAD with AICD -Crestor 10mg po HS -Losartan 25mg po daily (home med is TID, but will give once a day since blood pressures are not that elevated) -Hold all blood thinners PPX: Protonix SCD's All management per Dr. Guille Curtis
--- NOTE | 2018-07-06 17:27 | CP.PCM.PN ---
Subjective - Date & Time of Evaluation Date of Evaluation: 07/06/18 Time of Evaluation: 10:20 - Subjective Subjective: clinically same Objective - Vital Signs/Intake and Output Vital Signs (last 24 hours): Temp Pulse Resp BP Pulse Ox 98.4 F 78 20 154/81 H 98 07/06/18 15:35 07/06/18 15:35 07/06/18 15:35 07/06/18 15:35 07/06/18 15:35 - Medications Medications: Current Medications Darunavir (Prezista) 800 mg PO DAILY [facility] PRN Reason: Protocol Last Admin: 07/06/18 13:06 Dose: 800 mg Dextrose (Dextrose 50% Inj) 0 ml IV STAT PRN; Protocol PRN Reason: Hypoglycemia Protocol Dextrose (Glutose 15) 0 gm PO ONCE PRN; Protocol PRN Reason: Hypoglycemia Protocol Insulin Human Regular (Novolin R) 0 unit SC ACHS [facility] PRN Reason: Protocol Last Admin: 07/06/18 12:59 Dose: Not Given Losartan Potassium (Cozaar) 25 mg PO DAILY [facility] Last Admin: 07/06/18 14:57 Dose: 25 mg Pantoprazole Sodium (Protonix Ec Tab) 40 mg PO DAILY [facility] Last Admin: 07/06/18 13:06 Dose: 40 mg Raltegravir (Isentress) 400 mg PO BID [facility] PRN Reason: Protocol Last Admin: 07/06/18 13:06 Dose: 400 mg Ritonavir (Norvir) 100 mg PO DAILY [facility] PRN Reason: Protocol Last Admin: 07/06/18 13:06 Dose: 100 mg Rosuvastatin Calcium (Crestor) 10 mg PO HS [facility] Last Admin: 07/05/18 22:36 Dose: 10 mg - Labs Labs: 07/06/18 06:21 07/06/18 06:21 PT 13.2 SECONDS (9.7-12.2) H 07/02/18 17:38 INR 1.2 07/02/18 17:38 APTT 34 SECONDS (21-34) 07/02/18 17:38 - Constitutional Appears: Well - Head Exam Head Exam: ATRAUMATIC, NORMAL INSPECTION, NORMOCEPHALIC - Eye Exam Eye Exam: EOMI, Normal appearance, PERRL Pupil Exam: NORMAL ACCOMODATION, PERRL - ENT Exam ENT Exam: Mucous Membranes Moist, Normal Exam - Neck Exam Neck Exam: Full ROM, Normal Inspection. absent: Lymphadenopathy - Respiratory Exam Respiratory Exam: Decreased Breath Sounds - Cardiovascular Exam Cardiovascular Exam: REGULAR RHYTHM, +S1, +S2 - GI/Abdominal Exam GI & Abdominal Exam: Soft, Diminished Bowel Sounds - Rectal Exam Rectal Exam: Deferred
[2018-07-07 00:22] VITALS: O2SAT 99
[2018-07-07 07:51] VITALS: BP 133/73; TEMP 98.2
[2018-07-07 07:53] VITALS: PULSE 70
[2018-07-07 07:55] LABS: BASO # 0.1 K/uL (0.0-0.2); BASO % 0.6 % (0.0-2.0); EOS # 0.1 K/uL (0.0-0.7); EOS % 0.9 % (0.0-4.0); HEMOGLOBIN 10.9 g/dL (12.0-18.0); LYMPH # 1.4 K/uL (1.0-4.3); LYMPH % 16.6 % (20.0-40.0); MEAN CELL VOLUME 93.2 fL (80.0-94.0); MEAN CORPUSCULAR HEMOGLOBIN 32.7 pg (27.0-31.0); MEAN CORPUSCULAR HGB CONC 35.1 g/dL (33.0-37.0); MEAN PLATELET VOLUME 9.4 fL (7.2-11.7); MONO # 0.7 K/uL (0.0-0.8); MONO % 8.1 % (0.0-10.0); NEUT # 6.4 K/uL (1.8-7.0); NEUT % 73.8 % (50.0-75.0); RBC 3.35 Mil/uL (4.40-5.90); RED CELL DISTRIBUTION WIDTH 14.8 % (11.5-14.5); WHITE BLOOD COUNT 8.7 K/uL (4.8-10.8)
[2018-07-07 08:07] LABS: ALB/GLOB RATIO 1.2 (1.0-2.1); ALBUMIN 4.7 g/dL (3.5-5.0); CALCIUM 9.6 mg/dl (8.6-10.4)
[2018-07-07] MEDS: (Novolin R) Insulin Human Regular 100 units/ml vial SC SCH ×2 (08:11→12:43)
[2018-07-07] MEDS: Pantoprazole 40 mg EC Tab PO SCH (09:43)
--- NOTE | 2018-07-07 09:57 | CP.PCM.PN ---
Subjective - Date & Time of Evaluation Date of Evaluation: 07/07/18 Time of Evaluation: 07:00 - Subjective Subjective: PGY2- Progress note for Dr. Curtis Patient seen and examined at bedside and in no acute distress. Patient denies any headaches, dizziness, fevers, chills, chest pain, diarrhea, or constipation. Objective - Vital Signs/Intake and Output Vital Signs (last 24 hours): Temp Pulse Resp BP Pulse Ox 98.2 F 70 20 133/73 99 07/07/18 07:05 07/07/18 07:51 07/07/18 07:05 07/07/18 07:05 07/07/18 07:05 Intake and Output: 07/07/18 07/07/18 06:59 18:59 Intake Total 800 Balance 800 - Medications Medications: Current Medications Darunavir (Prezista) 800 mg PO DAILY [facility] PRN Reason: Protocol Last Admin: 07/07/18 09:44 Dose: 800 mg Dextrose (Dextrose 50% Inj) 0 ml IV STAT PRN; Protocol PRN Reason: Hypoglycemia Protocol Dextrose (Glutose 15) 0 gm PO ONCE PRN; Protocol PRN Reason: Hypoglycemia Protocol Insulin Human Regular (Novolin R) 0 unit SC ACHS [facility] PRN Reason: Protocol Last Admin: 07/07/18 08:11 Dose: 1 unit Losartan Potassium (Cozaar) 25 mg PO DAILY [facility] Last Admin: 07/07/18 09:43 Dose: 25 mg Pantoprazole Sodium (Protonix Ec Tab) 40 mg PO DAILY [facility] Last Admin: 07/07/18 09:43 Dose: 40 mg Raltegravir (Isentress) 400 mg PO BID [facility] PRN Reason: Protocol Last Admin: 07/07/18 09:43 Dose: 400 mg Ritonavir (Norvir) 100 mg PO DAILY [facility] PRN Reason: Protocol Last Admin: 07/07/18 09:43 Dose: 100 mg Rosuvastatin Calcium (Crestor) 10 mg PO HS [facility] Last Admin: 07/06/18 21:18 Dose: 10 mg - Labs Labs: 07/07/18 07:41 07/07/18 07:41 PT 13.2 SECONDS (9.7-12.2) H 07/02/18 17:38 INR 1.2 07/02/18 17:38 APTT 34 SECONDS (21-34) 07/02/18 17:38 - Additional Findings Additional findings: - Head Exam Head Exam: NORMAL INSPECTION Additional comments: Contusion on left superior brow - Eye Exam Eye Exam: EOMI, Normal appearance, PERRL Pupil Exam: NORMAL ACCOMODATION - ENT Exam ENT Exam: Mucous Membranes Moist, Normal Oropharynx - Respiratory Exam Respiratory Exam: Clear to Ausculation Bilateral, NORMAL BREATHING PATTERN - Cardiovascular Exam Cardiovascular Exam: REGULAR RHYTHM, +S1, +S2 - GI/Abdominal Exam GI & Abdominal Exam: Soft, Normal Bowel Sounds - Extremities Exam Extremities Exam: absent: Pedal Edema - Back Exam Back Exam: NORMAL INSPECTION. absent: paraspinal tenderness - Neurological Exam Neurological Exam: Alert, Awake, CN II-XII Intact, Oriented x3 - Psychiatric Exam Psychiatric exam: Normal Affect, Normal Mood - Skin Skin Exam: Dry, Intact, Normal Color Assessment and Plan - Assessment and Plan (Free Text) Assessment: 57 year old male with a PMHx of [place] s/p 3 stents, Systolic CHF, HIV, Diabetes, Hypertension, ESRD (, Tuesday) Dialysis who presented to the ED with complaints of chest pain, full body weakness, and inability to talk. Plan: 1. Subarachnoid Hemorrhage of Right Parietal lobe. repeat head CT ordered on 07/05: CT Head w/o contrast (Adm) interval near complete resolution of small right parietal subarachnoid hemorrhage. No new hemorrhage. 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 :Trace right parietal subarachnoid hemorrhage with no mass effect. Stable, trace diffuse cerebral atrophy. Tiny chronic lacune left thalamus. CT Head w/o contrast (07/03/18): :Persistent subarachnoid hemorrhage in the right parietal lobe, similar to the prior study. If symptoms persist, consider correlation with MRI. Neurology Dr. Darnell Consulted :Hold all blood thinners :Blood Pressure Control :Correct metabolic Abnormalities :MRI Brain w/o Contrast for tomorrow afternoon could not be done secondary to defibrillator, unknown if defibrillator is MRI compatible :NeuroSurgery Consulted (Dr. Ray). Recs appreciated :as per neuro EEG within normal limits Neurosurgery Dr. Ray consulted. Help appreciated 2. HIV -Last viral load: Undetectable -HIV home meds: Prezista 800mg po daily, Isentress 400mg po BID, Ritonavir 100mg po daily 3. Diabetes -ISS Low -Hypoglycemic Protocol -Carb consistent diet -Accuchecks ACHS 4.Hypertension -patient's blood pressure stable -will not restart home meds -continue to monitor 5.ESRD -dialysis T, Th, S -Nephrology consulted. Help appreciated -hemodialysis yesterday 6. Anemia -Stable -Anemia panel ordered. Will f/u with results. -Will monitor with serial cbc's. 7. HLD home med Crestor 10mg po HS 8. CAD with AICD -Crestor 10mg po HS -Losartan 25mg po daily (home med is TID, but will give once a day since blood pressures are not that elevated) -Hold all blood thinners PPX: Protonix SCD's All management per Dr. Guille Curtis Patient stable for discharge. Patient will need to follow up with neurology and his primary care doctor within 1 week. Patient to continue his home medications except: Aspirin Patient to take Losartan 25mg once daily. Patient to check his blood pressure daily. If blood pressure is in 150s/160s or above patient to take Losartan 25mg twice a day. Patient to not take Metoprolol. Patient to follow up with Dr. Corbin (cardio) within 1 week to go over blood pressure medications. Patient to return to ER if symptoms return. Patient explained instructions who understands and agrees.
--- NOTE | 2018-07-07 12:38 | CP.PCM.PN ---
Subjective - Date & Time of Evaluation Date of Evaluation: 07/07/18 Time of Evaluation: 12:35 - Subjective Subjective: c/o vomiting / post dialysis; better now HTN controlled Seen by neurosurgery- no intervention needed chemistries satisfactory Objective - Vital Signs/Intake and Output Vital Signs (last 24 hours): Temp Pulse Resp BP Pulse Ox 98.2 F 70 20 133/73 99 07/07/18 07:05 07/07/18 07:51 07/07/18 07:05 07/07/18 07:05 07/07/18 07:05 Intake and Output: 07/07/18 07/07/18 06:59 18:59 Intake Total 800 Balance 800 - Medications Medications: Current Medications Darunavir (Prezista) 800 mg PO DAILY [facility] PRN Reason: Protocol Last Admin: 07/07/18 09:44 Dose: 800 mg Dextrose (Dextrose 50% Inj) 0 ml IV STAT PRN; Protocol PRN Reason: Hypoglycemia Protocol Dextrose (Glutose 15) 0 gm PO ONCE PRN; Protocol PRN Reason: Hypoglycemia Protocol Insulin Human Regular (Novolin R) 0 unit SC ACHS [facility] PRN Reason: Protocol Last Admin: 07/07/18 08:11 Dose: 1 unit Losartan Potassium (Cozaar) 25 mg PO DAILY [facility] Last Admin: 07/07/18 09:43 Dose: 25 mg Ondansetron HCl (Zofran Inj) 4 mg IVP ONCE ONE Stop: 07/07/18 12:35 Pantoprazole Sodium (Protonix Ec Tab) 40 mg PO DAILY [facility] Last Admin: 07/07/18 09:43 Dose: 40 mg Raltegravir (Isentress) 400 mg PO BID [facility] PRN Reason: Protocol Last Admin: 07/07/18 09:43 Dose: 400 mg Ritonavir (Norvir) 100 mg PO DAILY [facility] PRN Reason: Protocol Last Admin: 07/07/18 09:43 Dose: 100 mg Rosuvastatin Calcium (Crestor) 10 mg PO HS [facility] Last Admin: 07/06/18 21:18 Dose: 10 mg - Labs Labs: 07/07/18 07:41 07/07/18 07:41 PT 13.2 SECONDS (9.7-12.2) H 07/02/18 17:38 INR 1.2 07/02/18 17:38 APTT 34 SECONDS (21-34) 07/02/18 17:38 - Constitutional Appears: No Acute Distress, Chronically Ill - Head Exam Head Exam: ATRAUMATIC, NORMAL INSPECTION - Eye Exam Eye Exam: EOMI, Normal appearance - Neck Exam Neck Exam: Normal Inspection. absent: Tenderness - Respiratory Exam Respiratory Exam: Clear to Ausculation Bilateral, NORMAL BREATHING PATTERN - Cardiovascular Exam Cardiovascular Exam: REGULAR RHYTHM, +S1 - GI/Abdominal Exam GI & Abdominal Exam: Soft. absent: Tenderness - Extremities Exam Extremities Exam: Normal Inspection. absent: Tenderness - Neurological Exam Neurological Exam: Alert, CN II-XII Intact - Skin Skin Exam: Dry, Warm Assessment and Plan (1) ESRD (end stage renal disease) Status: Acute (2) Subarachnoid bleed Status: Acute - Assessment and Plan (Free Text) Plan: decrease UF goal with HD renal status stable disposition as per medicine
== END 2018-07-07 13:20 | disposition home or self-care (01) | DRG 82 ==
LOC: C.ER 17:03 → C.9E 19:42 → C.6T 21:25 → OBSVTOIN 07-05 13:29 → C.6T 07-05 17:19
PROVIDERS: ADMIT Internal Medicine Nephrology; ATTEND Internal Medicine Nephrology
PROC: 5A1D70Z Performance of Urinary Filtration, Intermittent, Less than 6 Hours Per Day (ICD-10-PCS; principal; 2018-07-05)
DX: S06.6X6A Traumatic subarachnoid hemorrhage with loss of consciousness greater than 24 hours without return to pre-existing conscious level with patient surviving, initial encounter (principal); N18.6 End stage renal disease; I13.2 Hypertensive heart and chronic kidney disease with heart failure and with stage 5 chronic kidney disease, or end stage renal disease; I50.20 Unspecified systolic (congestive) heart failure; E11.22 Type 2 diabetes mellitus with diabetic chronic kidney disease; W01.10XA Fall on same level from slipping, tripping and stumbling with subsequent striking against unspecified object, initial encounter; Z21 Asymptomatic human immunodeficiency virus [HIV] infection status; G31.89 Other specified degenerative diseases of nervous system; Z99.2 Dependence on renal dialysis; R46.89 Other symptoms and signs involving appearance and behavior; R47.81 Slurred speech; D64.9 Anemia, unspecified; S01.81XA Laceration without foreign body of other part of head, initial encounter; Z79.4 Long term (current) use of insulin